=== PATIENT | female | born 1990 | race Caucasian/White ===

== ENCOUNTER → 2025-01-07 | Outpatient (CLI) | payer BC, SELFPAY ==
--- NOTE | 2025-01-07 11:30 | EMB_PTH ---
PATIENT: COLLIN COBURN LOC: [facility] U#:[id number] AGE/SX: 34/F ROOM: RE01/07/[address]: Dr. Lima Gonzalez DO : 1990 BED: DIS: 01/07/2025 SPEC #: [id number] RECD: 01/08/25 10:11 STATUS: PARAG ARYA #: [id number] ELMO: 01/07/25 11:[address]: Lima Gonzalez DEPT: SURGICAL PATHOLOGY RECD BY: Taurus Santos Tissues: A - Endometrium, NOS Procedures: Surgery Specimen Level IV HEADER OPERATION: Endometrial biopsy PRE-OP DIAGNOSIS: Abnormal uterine bleeding TISSUE SUBMITTED: A- Endometrial lining MICROSCOPIC DIAGNOSIS A. Endometrium, biopsy: * Secretory phase. MICROSCOPIC DESCRIPTION Slides are reviewed. GROSS DESCRIPTION A. Received in fixative is one container labeled with the patient's name and designated Endometrial lining. The specimen consists of multiple fragments of pink tissue that measure 2.3 x 1.5 x 0.1 cm in aggregate. The specimen is totally submitted in one cassette. 01/08/2025 CPT:[id number]
[2025-01-10 14:09] LABS: HPV APTIMA, High Risk Negative (Negative)
== END | disposition home or self-care (01) ==
LOC: LABSPEC 16:01
PROVIDERS: Referring Provider Obstetrics & Gynecology; Visit Provider Obstetrics & Gynecology
DX: N93.9 Abnormal uterine and vaginal bleeding, unspecified (principal); Z12.4 Encounter for screening for malignant neoplasm of cervix
CPT/HCPCS: 87624; 88175; 88305; G0145

== ENCOUNTER 2025-09-17 05:30 | Day surgery (SDC) | payer BC, SELFPAY ==
[2025-09-10 10:54] LABS: Hematocrit 42.8 % (37-47); Hemoglobin 14.3 g/dL (12.0-15.0); Mean Corp Hgb Conc 33.4 g/dL (32-36); Mean Corpuscular Volume 89.5 fL (81-99); Mean Platelet Vol. 9.2 fl (6.2-12.0); Platelet Count 358 K/mm3 (150-450); RBC Distribution Width CV 12.3 % (11.6-14.6); RBC Distribution Width SD 40.6 fl (35.1-43.9); Red Blood Count 4.78 M/mm3 (4.2-5.4); White Blood Count 7.1 K/mm3 (4.4-11.0)
[2025-09-10 11:15] LABS: Magnesium 2.1 mg/dL (1.5-2.2)
[2025-09-10 11:46] LABS: Ferritin 25 ng/mL (22-378); Iron 93 ug/dL (50-170); Iron Binding Capacity,Total 336 ug/dL (250-450); Iron Binding Capacity,Unsat 243 ug/dL (228-428)
[2025-09-17] VITALS (11 sets, daily range): BP systolic 104–124; BP diastolic 75–80; PULSE 66–99; RESP 16; TEMP 36.2–36.6; O2SAT 94–100; BMI 27.2
--- OUTSIDE RECORDS SUMMARY | 2025-09-17 05:34 | XMS RPT_ITS | CCD ---
Author Organization [facility] Informat ion Partnership [facility] Care Team Providers Care Mannequin Refinisher Name Role Phone Primitivo Whitaker Primary Care Provider Vanda Montanoine C Unavailable [phone] Unavailable Unavailable Primitivo Whitaker MD Primary Care Provider DustyCharlee rodriguez DO Primary Care Provider Salcha Charlee Primary Care Unavailabl e Salcha Charlee Attending Unavailabl e Salcha Charlee Referring Unavailabl e Dr. Leo Ye Attending Unavailable Dr. Leo Ye Referring Unavailable Salcha, Charlee Primary Care Unavailabl e Dusty Charlee Attending Unavailabl e Salcha Charlee Referring Unavailabl e Salcha, Charlee Primary Care Unavailabl e Salcha, Charlee Attending Unavailabl e Dusty, Charlee Primary Care Unavailabl e Unavailable Unavailable Dusty DO Charlee C Primary Care Provider DUSTY, CHARLEE C Referring Unavaila ble DUSTY CHARLEE C Primary Care Unavaila ble Dusty Vanda WOODYine C Primary Care Provider SELF Referring Unavailable DUSTY, CHARLEE C Primary Care Unavaila ble LIMA VALENCIA Referring Unavailable DUSTY, CHARLEE C Primary Care Unavaila ble Primitivo Whitaker MD Primary Care Provider [phone] Jamee Corley Attending Provider Unavailable Dr. Lima Gonzalez DO Attending Provider Dr. Lima Gonzalez DO Referring Provider PRIMITIVO WHITAKER Primary Care Unavailable AMANDA WAGNER Referring Unavailable AMANDA WAGNER Attending Unavailable PRIMITIVO WHITAKER Primary Care Unavailable AMANDA WAGNER Attending Unavailable Lima Gonzalez Attending Jamee Neal Attending Unavailable Lima Gonzalez Attending Unavailsunny e Lima Gonzalez Referring Unavailsunny e Charlee Montano Primary Care Joaquim e Lima Gonzalez Attending Joaquim e Lima Gonzalez Referring Unavailsunny e Lima Gonzalez Attending Unavailabl e Allergies Allergy Classification Reported Allergen(s) Allergy Type Date of Onset Reaction(s) Facility (5 sources) Amoxicillin / Clavulanate; Translations: [AMOXICILLIN-POT CLAVULANATE] Drug Allergy 10-31-2016 [facility] Medications Current Medications Medication Drug Class(es) Dates Sig (Normalized) Sig (Original) acetaminophen 325 mg oral tablet (4 sources) Start: 08-05-2021 acetaminophen (TYLENOL) tablet 650 mg Start: 08-01-2019 End: 08-02-2019 acetaminophen (TYLENOL) tabl et 650 mg [id number] 200 actuat albuterol 0.09 mg/actuat metered dose inhaler (2 sources) beta2-Adrenergic Agonist Start: 12-17-2024 take 2 puff(s) by inhalation every four hours as needed for wheezing albuterol HFA (VENTOLIN HFA) 90 mcg/actuation inhaler Indications: Acute bronchitis, unspecified organism Inhale 2 Puffs as instructed every 4 hours as needed for wheezing/shortness of breath. Inhale by mouth as instructed. 18 g 12/17/2024 Active azithromycin 250 mg oral tablet (2 sources) Macrolide Antimicrobial Start: 12-17-2024 take 2 tablets by mouth once daily, then take 1 tablet by mouth once daily azithromycin (ZITHROMAX Z-MAMADOU) 250 mg tablet Indications: Acute bronchitis, unspecified organism Two (2) tablets by mouth the first day and then one (1) tablet by mouth daily for 4 days. 6 tablet 12/17/2024 Active benzethonium chloride 2 mg/ml / benzocaine 200 mg/ml topical spray (2 sources) Standardized Chemical Allergen Start: 08-05-2021 benzocaine-benzethoni um (DERMOPLAST) 20-0.2 % spray benzocaine 200 mg/ml / menthol 5 mg/ml topical spray (1 source) Standardized Chemical Allergen Start: 08-02-2019 benzocaine-menthol (DERMOPLAST) 20-0.5 % spray benzonatate 200 mg oral capsule (2 sources) Non-narcotic Antitussive Start: 12-17-2024 End: 12-27-2024 take 1 capsule by mouth every eight hours as needed Benzonatate 200 mg capsule Take 1 capsule by mouth three times a day as needed for up to 10 days. 30 capsule 12/17/2024 12/27/2024 Active calcium chloride 0.0014 meq/ml / potassium chloride 0.004 meq/ml / sodium chloride 0.103 meq/ml / sodium lactate 0.028 meq/ml injectable solution (3 sources) Start: 08-05-2021 lactated ringers infusion Start: 08-01-2019 End: 08-02-2019 lactated ringers bolus cholecalciferol 0.05 mg oral capsule (1 source) Vitamin D Start: 01-07-2025 take 1 capsule by mouth once daily Cholecalciferol (Vitamin D3) 50 mcg (2,000 unit) capsule Active 50 ug PO daily January 07, 2025 12:00am docusate sodium 100 mg oral capsule (2 sources) Start: 08-05-2021 docusate sodiu m (COLACE) capsule 100 mg Start: 08-02-2019 docusate sodiu m (COLACE) capsule 100 mg 21 day ethinyl estradiol 0.380961 mg/hr / etonogestrel 0.005 mg/hr vaginal system (4 sources) Progestin, Estrogen Etonogestrel -Ethinyl Estradiol (NUVARING) 0.12-0.015 mg/24 hr vaginal ring Indications: Acute non-recurrent ethmoidal sinusitis Use 1 Each vaginally as directed. Insert vaginally and leave in place for 3 consecutive weeks, then remove for 1 week. Active Comment on above: Use 1 Each vaginally as directed. Insert vaginally and leave in place for 3 consecutive weeks, then remove for 1 week. fluticasone propionate 0.05 mg/actuat metered dose nasal spray (20 sources) Corticosteroid End: fluticasone (Flonase) 50 mcg/actuation nasal spray Administer into affected nostril(s). 0 10/10/2023 Discontinued (Therapy completed) Flonase 50 MCG/A CT SUSP Quantity: 0 Refills: 0 Ordered: 29-Jul-2020 DO Active fluticasone (CHERY NASE) 50 MCG/ACT nasal spray by Nasal route 0 Suspended hydrOXYzine hydrochloride 25 mg oral tablet (15 sources) Antihistamine Start: 01-07-2025 take 1 tablet by mouth at bedtime as needed Hydroxyzine Hcl 25 mg tablet Active 25 mg PO AT BEDTIME as needed January 07, 2025 12:00am Start: 10-01-2024 take 1 tablet by jennie th every eight hours as needed for anxiety hydrOXYzine HCL (Atarax) 25 mg tablet Indications: Anxiety and depression TAKE ONE TABLET BY MOUTH EVERY 8 HOURS NEEDED FOR ANXIETY 90 tablet 10/30/2024 Active Start: 11-26-2023 take 1 tablet by jennie th every eight hours for anxiety hydrOXYzine HCL (Atarax) 25 mg tablet Indications: Anxiety and depression TAKE ONE (1) TABLET BY MOUTH EVERY 8 HOURS IF NEEDED FOR ANXIETY 90 tablet 1 11/26/2023 Active Start: 10-10-2023 take 1 tablet by jennie th every eight hours for anxiety hydrOXYzine HCL (Atarax) 25 mg tablet Indications: Anxiety and depression TAKE ONE (1) TABLET BY MOUTH EVERY 8 HOURS IF NEEDED FOR ANXIETY 90 tablet 0 10/10/2023 Active Start: 09-21-2023 End: 10-10-2023 take 1 tablet by mouth every eight hours for anxiety hydrOXYzine HCL (Atarax) 25 mg tablet Indications: Anxiety and depression TAKE ONE (1) TABLET BY MOUTH EVERY 8 HOURS IF NEEDED FOR ANXIETY 90 tablet 0 09/21/2023 10/10/2023 Discontinued (Reorder) Start: 09-10-2022 take 1 tablet by jennie th three times daily as needed for anxiety hydrOXYzine HCl - 25 MG Oral Tablet TAKE 1 TABLET 3 TIMES DAILY NEEDED as needed for anxiety. Quantity: 21 Refills: 0 Ordered: 27-Oct-2022 Charlee Montano DO Start : 10-Sep-2022 Active ibuprofen 600 mg oral tablet (5 sources) Nonsteroidal Anti-inflammatory Drug Start: 08-05-2021 ibuprofen (ADVIL;MOTRIN) tablet 600 mg Start: 08-01-2019 End: 04-30-2021 take 1 tablet by mouth every six hours as needed for pain ibuprofen (ADVIL;MOTRIN) 600 MG tablet Take 1 tablet by mouth every 6 hours as needed for Pain 40 tablet 2 08/03/2019 04/30/2021 Discontinued (LIST CLEANUP) Lactated Ringer's Solution (1 source) Start: 08-05-2021 lactated ringe rs bolus lanolin 1000 mg/ml topical c ream (2 sources) Start: 08-05-2021 lansinoh lanol in ointment Start: 08-02-2019 lanolin ointme nt loratadine 10 mg oral tablet (6 sources) loratadine (CLAR ITIN) 10 mg tablet Take 10 mg by mouth. Active Comment on above: Take 10 mg by mouth. magnesium oxide,aspartate,ci tr (TRIPLE MAGNESIUM COMPLEX) 400 mg magnesium cap (4 sources) magnesium oxide, aspartate,citr (TRIPLE MAGNESIUM COMPLEX) 400 mg magnesium cap Take by mouth. Active magnesium oxide, aspartate,citr (TRIPLE MAGNESIUM COMPLEX) 400 mg magnesium cap Take by mouth. 0 Active Comment on above: Take by mouth. magnesium oxide,aspartate,citr (Triple Magnesium Complex) 400 mg magnesium capsule (1 source) End: 10-10-20 23 magnesium oxide,aspartate,citr (Triple Magnesium Complex) 400 mg magnesium capsule Take by mouth. 0 10/10/2023 Discontinued (Therapy completed) metoclopramide 10 mg oral tablet (13 sources) Dopamine-2 Receptor Antagonist Start: 01-15-20 21 End: 08-06-20 21 take 1 tablet by mouth three times daily at mealtime metoclopramide (REGLAN) 10 MG tablet Take 1 tablet by mouth 3 times daily (with meals) 120 tablet 3 01/14/2021 Active Reglan 10 MG Ora l Tablet Quantity: 0 Refills: 0 Ordered: 14-Aug-2021 DO Active morphine injection 2 mg (1 source) Start: 08-05-2021 morphine injec tion 2 mg 2 ml ondansetron 2 mg/ml injection (4 sources) Serotonin-3 Receptor Antagonist Start: 08-05-2021 ondansetron (ZOFRAN) injection 4 mg Start: 08-01-2019 End: 08-02-2019 ondansetron (ZOFRAN) injecti on 4 mg End: 08-03-2019 ondansetron (ZOFRAN ODT) 4 M G disintegrating tablet oxyCODONE hydrochloride 5 mg oral tablet (1 source) Opioid Agonist Start: 08-02-2019 oxyCODONE (DANIEL ICODONE) immediate release tablet 5 mg oxytocin (PITOCIN) 10 unit bolus from the bag (1 source) Start: 08-05-2021 oxytocin (MILEY SEDA) 10 unit bolus from the bag oxytocin (PITOCIN) 30 units in 500 mL infusion (1 source) Start: 08-01-2019 oxytocin (MILEY SEDA) 30 units in 500 mL infusion riboflavin 400 mg oral tablet (3 sources) End: 10-10-2023 riboflavin (Vitamin B-2) 400 mg tablet Riboflavin 400 M G TABS rizatriptan 10 mg oral tablet (20 sources) Serotonin-1b and Serotonin-1d Receptor Agonist Start: 01-07-2025 take 1 tablet by mouth every two hours Rizatriptan 10 mg tablet Active 0 PO .COMPLEX January 07, 2025 12:00am take 1 tab at onset of headache; if no relief may repeat 1 tab after at least 2 hrs; max = 3 tabs/24 hr PO Start: 07-29-2020 End: 10-30-2024 take 1 tablet by mouth every two hours as needed, then take 3 tablets by mouth every twenty-four hours as needed rizatriptan (Maxalt) 10 mg tablet Indications: Migraine without status migrainosus, not intractable, unspecified migraine type TAKE 1 TABLET BY MOUTH AT ONSET OF HEADACHE. MAY REPEAT EVERY 2 HOURS NEEDED. MAXIMUM OF 3 TABLETS IN 24 HOURS 9 tablet 3 10/30/2024 Active Comment on above: TAKE 1 TABLET BY JENNIE TH AT ONSET OF HEADACHE. MAY REPEAT EVERY 2 HOURS NEEDED. MAXIMUM OF 3 TABLETS IN 24 HOURS sertraline 100 mg oral tablet (20 sources) Serotonin Reuptake Inhibitor Start: 08-05-2021 take 100 mg by mouth once daily 100 mg, Oral, DAILY, First dose on Tue08/05/21 at 0900 Start: 07-29-2020 End: 10-30-2025 take 1 tablet by mouth once daily Sertraline (Zoloft) 100 mg tablet Active 100 mg PO daily January 07, 2025 12:00am Comment on above: 1 tab(s) simethicone 80 mg chewable tablet (1 source) Start: 08-05-2021 simethicone (M YLICON) chewable tablet 80 mg 1000 ml sodium chloride 9 mg/ml injection (3 sources) Start: 08-05-2021 0.9 % sodium c hloride infusion Start: 08-05-2021 sodium chlorid e flush 0.9 % injection 5-40 mL Start: 08-02-2019 sodium chlorid e flush 0.9 % injection 10 mL witch chucky 500 mg/ml medicated pad (2 sources) Start: 08-05-2021 witch chucky-gl ycerin (TUCKS) pad Start: 08-02-2019 witch chucky-gl ycerin (TUCKS) pad Completed/Discontinued Medications Medication Drug Class(es) Dates Sig (Normalized) Sig (Original) acetaminophen 325 mg / butalbital 50 mg / caffeine 40 mg oral tablet (4 sources) Barbiturate, Central Nervous System Stimulant, Methylxanthine Start: 01-14-2021 take 1 tablet by mouth every four hours as needed for headache butalbital-aceta minophen-caffein e (FIORICET, ESGIC) 50-325-40 MG per tablet Take 1 tablet by mouth every 4 hours as needed for Headaches 180 tablet 3 01/14/2021 Suspended Start: 02-22-2019 End: 08-03-2019 owgcqwmemf-WMLH-stbfpatd (FI ORICET) 50-300-40 MG CAPS per capsule take 1 capsule by [facility] every four hours Fioricet 50-300-40 MG Oral Capsule TAKE 1 CAPSULE Every 4 hours PRN Quantity: 0 Refills: 0 Ordered: 14-Aug-2021 DO Active amoxicillin 500 mg oral tablet (2 sources) Penicillin-class Antibacterial Start: 03-09-2023 End: 10-08-2023 amoxicillin (Amoxil) 500 mg tablet Indications: upper respiratory infection Take 2 tablets twice a day for 10 days 40 tablet 0 03/09/2023 10/08/2023 Discontinued (Therapy completed) Start: 03-16-2022 End: 03-23-2022 take 1 tablet by mouth once daily Amoxicillin 875 MG Oral Tablet TAKE 1 TABLET EVERY 12 HOURS DAILY. Quantity: 14 Refills: 0 Ordered: 16-Mar-2022 Charlee Montano DO Start : 16-Mar-2022 End : 23-Mar-2022 Active amoxicillin 875 mg / clavulanate 125 mg oral tablet (1 source) Penicillin-class Antibacterial Start: 03-29-2022 take 1 tablet by mouth every twelve hours Amoxicillin-Pot Clavulanate 875-125 MG Oral Tablet TAKE 1 TABLET EVERY 12 HOURS UNTIL GONE. Quantity: 14 Refills: 0 Ordered: 29-Mar-2022 Charlee Montano DO Start : 29-Mar-2022 Active Bacillus coagulans / Inulin (2 sources) Bacillus Coagulans-Inulin (PROBIOTIC FORMULA PO) Tijxnbuxyk-AASU-O affeine (FIORICET PO) (1 source) End: 04-30-2021 Gqljioctqp-CRHY-Dxdg eine (FIORICET PO) cephalexin 500 mg oral capsule (3 sources) Cephalosporin Antibacterial Start: 04-16-2022 take 1 capsule by mouth four times daily Cephalexin 500 MG Oral Capsule TAKE 1 CAPSULE 4 TIMES DAILY Quantity: 40 Refills: 0 Ordered: 16-Apr-2022 Leo Ye MD Start : 16-Apr-2022 Active Magnesium (2 sources) Magnesium 400 MG CAPS Take by mouth daily 0 Suspended Magnesium 400 MG CAPS Take by mouth daily 0 Active 1 ml morphine sulfate 4 mg/ml cartridge (3 sources) Opioid Agonist Start: 08-05-2021 End: 08-05-2021 morphine 4 MG/ML injection Start: 08-01-2019 End: 08-01-2019 morphine 4 MG/ML injection Start: 08-01-2019 End: 08-02-2019 morphine injection 2 mg Plus TABS (3 sources) Plus TA BS TAKE 1 TABLET DAILY. Quantity: 0 Refills: 0 Ordered: 24-Dec-2020 DO Active Vit-Fe Fumarate-FA ( 1+1 PO) (1 source) End: 08-03-2019 Vit-Fe Fumarate-FA ( 1+1 PO) Vit-Fe Fumarate-FA ( PLUS) 27-1 MG TABS (2 sources) Vit-Fe Fumarate-FA ( PLUS) 27-1 MG TABS Take by mouth 0 Suspended Vit-Fe Fumarate-FA ( PLUS) 27-1 MG TABS Take by mouth 0 Active promethazine hydrochloride 12.5 mg rectal suppository (1 source) Phenothiazine End: 08-03-2019 promethazine (PHENERGAN) 12.5 MG suppository 200 ml ropivacaine hydrochloride 2 mg/ml injection (1 source) Amide Local Anesthetic Start: 08-01-2019 End: 08-01-2019 ropivacaine (NAROPIN) 0.2% injection 0.2% ropivacaine 0.2% in sodium chloride 0.9% (OB) epidural syringe (1 source) Start: 08-01-2019 End: 08-01-2019 ropivacaine 0.2% in sodium chloride 0.9% (OB) epidural syringe Problems Active Problems Problem Classification Problem Date Documented Date Episodic/Chronic Acute bronchitis (3 sources) Acute bronchitis; Translations: [Acute bronchitis, unspecified] Onset: 12-17-2024 12-17-2024 Episodic Anxiety disorders (20 sources) Mixed anxiety and depressive disorder; Translations: [Anxiety state, unspecified] Onset: 01-07-2023 10-10-2023 Chronic Deficiency and other anemia (1 source) Anemia; Translations: [Anemia, unspecified] Episodic Disorders of lipid metabolism (20 sources) Hyperlipidemia; Translations: [Other and unspecified hyperlipidemia] Onset: 01-07-2023 10-10-2023 Chronic Fever of unknown origin (3 sources) Fever with chills; Translations: [Fever, unspecified] Episodic Genitourinary symptoms and ill-defined conditions (3 sources) Urine looks dark; Translations: [Other nonspecific findings on examination of urine] Episodic Headache; including migraine (20 sources) Migraine; Translations: [Migraine, unspecified, without mention of intractable migraine without mention of status migrainosus] Onset: 01-07-2023 10-10-2023 Chronic Immunizations and screening for infectious disease (16 sources) Patient encounter status; Translations: [Other specified vaccination] Onset: 09-10-2022 Episodic Malaise and fatigue (2 sources) Fatigue; Translations: [Other fatigue] Onset: 09-03-2025 10-30-2024 Episodic Menstrual disorders (5 sources) Menstrual spotting; Translations: [Other specified noninflammatory disorders of vagina] Chronic Nonmalignant breast conditions (14 sources) Mastodynia; Translations: [Mastodynia] Onset: 02-06-2024 01-20-2024 Episodic Nutritional deficiencies (1 source) Vitamin D deficiency; Translations: [Vitamin D deficiency, unspecified] Onset: 10-31-2024 10-31-2024 Chronic Other connective tissue disease (2 sources) Pain in right foot; Translations: [Pain in right foot] Episodic Other female genital disorders (6 sources) Abnormal uterine bleeding; Translations: [Abnormal uterine and vaginal bleeding, unspecified] 10-30-2024 Chronic Other female genital disorders (1 source) Abnormal uterine and vaginal bleeding, unspecified; Translations: [Abnormal uterine and vaginal bleeding, unspecified] Onset: 09-03-2025 Chronic Other screening for suspected conditions (not mental disorders or infectious disease) (19 sources) Serum creatinine raised; Translations: [Other nonspecific findings on examination of blood] Onset: 09-10-2022 Episodic Comment on above: 09/10/22 NILM HPV ne g; Residual codes; unclassified (20 sources) History finding; Translations: [Other specified conditions influencing health status] Episodic Residual codes; unclassified (5 sources) Knows partner's method of contraception; Translations: [Other specified personal history presenting hazards to health] Episodic Past or Other Problems Problem Classification Problem Date Documented Da te Episodic/Chronic Deficiency and other anemia (8 sources) Iron deficiency anemia; Translations: [Iron deficiency anemia, unspecified] Onset: 10-29-2024 Resolved: 10-29-2024 10-29-2024 Episodic Mood disorders (8 sources) Mood disorders Onset: 10-10-2023 Resolved: 10-30-2024 10-10-2023 Other complications of (8 sources) Mastitis - obstetric; Translations: [Nonpurulent mastitis associated with childbirth, antepartum condition or complication] Resolved: 09-09-2022 Episodic Other hematologic conditions (11 sources) H/O: anemia - iron deficient; Translations: [Personal history of diseases of blood and blood-forming organs] Resolved: 01-04-2022 Episodic Other lower respiratory disease (3 sources) H/O: respiratory disease; Translations: [Personal history of other diseases of respiratory system] Resolved: 04-15-2022 Episodic Other nutritional; endocrine; and metabolic disorders (9 sources) Overweight in adulthood with body mass index of 25 or more but less than 30; Translations: [Overweight] Onset: 10-10-2023 Resolved: 10-30-2024 10-10-2023 Episodic Other and delivery including normal (18 sources) Delivery normal; Translations: [Vaginal delivery] Onset: 08-01-2019 Resolved: 10-08-2023 08-01-2019 Episodic Other upper respiratory infections (6 sources) Acute sinusitis; Translations: [Acute sinusitis, unspecified] Onset: 11-10-2016 11-10-2016 Episodic Polyhydramnios and other problems of amniotic cavity (4 sources) Amniotic fluid leaking; Translations: [Premature rupture of membranes, unspecified as to length of time between rupture and onset of labor, unspecified weeks of gestation] Onset: 08-01-2019 Resolved: 08-06-2021 08-01-2019 Episodic Unclassified (8 sources) Onset: 10-10-2023 10-10-2023 Viral infection (11 sources) Disease caused by 2019-nCoV; Translations: [Other specified viral infection] Resolved: 04-15-2022 Episodic Results Test Name Value Interpretation Reference Range Facility 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 Lima Ansari DO Age/Sex: 35/F Location: [facility] Status: Signed Intake Vital Signs 01/07/25 11:13 09/02/25 14:00 09/02/25 14:03 Height 5 ft 5 ft 5 ft Weight: 120 lb 4 oz 138 lb 5 oz BMI 23.5 27.0 BP 117/81 H 120/79 Intake Visit Reasons: Hyst consult/preop keep 20 min. Rail Grinder Required: No Is patient in pain?: No Allergies No Known Allergies Allergy (Unverified 09/02/25 13:58) Medications ???Medication ???Instructions ???Recorded ???Confirmed ???Type cholecalciferol (vitamin D3) 50 50 mcg PO QDAY 01/07/25 09/02/25 H istory mcg (2,000 unit) capsule hydroxyzine HCl 25 mg tablet 25 mg PO QHS PRN 01/07/25 09/02/25 History rizatriptan 10 mg tablet See Rx Instructions PO .COMPLEX 09/02/25 History venlafaxine 37.5 mg 37.5 mg PO QHS #90 caps 03/13/25 1 11/02/24 Rx capsule,extended release 24 hr (Effexor XR) Is last menstrual period known: Yes Last Menstrual Period: 08/20/25 Post menopausal: No Patient : No : No PFSH Medical History Abnormal uterine and vaginal bleeding, unspecified Migraine Depression with anxiety Surgical History S/P wisdom tooth extraction S/P tonsillectomy S/P sinus surgery Family History Grandfather Colon cancer Prostate cancer Lung cancer Lymphoma Grandmother Breast cancer triple negative Mother Hypertension Social History Smoking Status: Never smoker alcohol intake: current details: occasionally substance use type: does not use caffeine: Yes what type of physical activity do you participate in: walking frequency: 1-2 times per week seatbelt use: always do you feel safe at home: Yes additional social history: - Anthony 2 step children-Adriana Lewis HPI Hyst consult/preop keep 20 min. Details: COLLIN ROY is a 34 year old (vaginal deliveries), who presents for discussion about ablation procedure. Contraception is her 's vasectomy Ultrasound at shows an 8.5 x 4.9 x 5.2 cm. The endometrium is 1 cm. She states that she has heavy periods causing passing of large clots. She also has postcoital bleeding at times and unscheduled bleeding during the month. This has been going of for 2 years. Periods last 7-14 days (heavy for a week) then has spotting and another cycle starts 2 weeks later. She also has vaginal bleeding after intercourse. She also states that she has a history of migraine with aura. 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 Her PCP offered an IUD and she does not want to try this. EMB was benign. Female Reproductive History Last Menstrual Period: 08/20/25 History 2 Elective abortions Hx Para 2 Spontaneous abortions Hx # Term Pregnancies Ectopic pregnancies Hx # Pregnancies Multiple births # of living children Past Pregnancies Del. Date Name GA/Weeks Outcome Route Bth Weight Gen Labor Lgth Anesthesia Del Locatn Provider FOB Unknown [place] Unknown Anitha ROS Const ROS Unobtainable: All systems reviewed are unremarkable except as noted in H Resp Resp: Reports system reviewed and no additional complaints, except as documented; Denies cough GI GI: Reports as per HPI Psych Psych: Reports system reviewed and no additional complaints, except as documented Exam Const General: cooperative, healthy appearing, comfortable and no acute distress Resp Effort Inspection: normal respiratory effort Skin General: no rashes or lesions noted Psych Appearance: grossly normal Speech and Movement: speech and movement normal Coding Level of Care Code Off vis,est,level 4 Diagnoses Abnormal uterine and vaginal bleeding, unspecified N93.9 Fatigue R53.83 Assessment and Plan Assessment and Plan (1) Abnormal uterine and vaginal bleeding, unspecified: Status: Acute (2) Fatigue: Status: Acute Orders: Orders Ferritin Today N93.9 - Abnormal uterine and vaginal bleeding, unspecified, R53.83 - Other fatigue Iron+Iron Binding Capacity Today N93.9 - Abnormal uterine and vaginal bleeding, unspecified, R53.83 - Other fatigue CBC W/Diff, Automated Today N93.9 - Abnormal uterine and vaginal bleeding, unspecified, R53.83 - Other fatigue Type Screen - PAT ONLY Today N93.9 - Abnormal uterine and vaginal bleeding, unspecified, R53.83 - Other fatigue Plan After (more content not included)... Normal [facility] QUANTIFERON TB GOLDon 2024 Mitogen minus NIL >9.98 Invalid Interpretation Code [facility] Comment on above: Order Comment: Quant iFERON-TB Gold Plus is a qualitative indirect chemiluminescence immunoassay test for M tuberculosis infection and is intended for use in conjunction with risk assessment, radiography, and other medical and diagnostic evaluations. The QuantiFERON-TB Gold Plus result is determined by subtracting the Nil value from either TB antigen value. The Mitogen tube serves as a control for the test. The TB1-NIL tube specifically detects CD4+ lymphocyte reactivity; the TB2-NIL tube can detect both CD4+ and CD8+ lymphocyte reactivity. An overall Negative result does not completely rule out TB infection. A false-positive result in the absence of other clinical evidence of TB infection is not uncommon and may be due to infection from some nontuberculosis mycobacteria (M. kansasii, M szulgai, or M. marinum). Clinical research suggests a QuantiFERON-TB Gold Plus interpretation of Positive with TB1 minus Nil and TB2 minus Nil values <1.00 may represent a false-positive in the absence of other clinical evidence, especially in low-risk individuals. An overall indeterminate result is inconclusive and should not be viewed as low or intermediate infection. Indeterminate results can be caused by low Mitogen or high Nil values. Low mitogen results may occur due to a low lymphocyte count, reduced lymphocyte activity, inability of the patient's lymphocytes to generate IFN-gamma, or inappropriate handling of the tubes. High values for the Nil tube may occur due to heterophile antibody effects of nonspecific, circulating IFN-gamma in the patient's blood sample. When clinically indicated, indeterminate tests should be repeated on a new specimen. Testing Performed: [address] [address] Release to patient->Automatic Quantiferon TB Gold Negative Invalid Interpretation Code Negative [facility] Comment on above: Order Comment: Quant iFERON-TB Gold Plus is a qualitative indirect chemiluminescence immunoassay test for M tuberculosis infection and is intended for use in conjunction with risk assessment, radiography, and other medical and diagnostic evaluations. The QuantiFERON-TB Gold Plus result is determined by subtracting the Nil value from either TB antigen value. The Mitogen tube serves as a control for the test. The TB1-NIL tube specifically detects CD4+ lymphocyte reactivity; the TB2-NIL tube can detect both CD4+ and CD8+ lymphocyte reactivity. An overall Negative result does not completely rule out TB infection. A false-positive result in the absence of other clinical evidence of TB infection is not uncommon and may be due to infection from some nontuberculosis mycobacteria (M. kansasii, M szulgai, or M. marinum). Clinical research suggests a QuantiFERON-TB Gold Plus interpretation of Positive with TB1 minus Nil and TB2 minus Nil values <1.00 may represent a false-positive in the absence of other clinical evidence, especially in low-risk individuals. An overall indeterminate result is inconclusive and should not be viewed as low or intermediate infection. Indeterminate results can be caused by low Mitogen or high Nil values. Low mitogen results may occur due to a low lymphocyte count, reduced lymphocyte activity, inability of the patient's lymphocytes to generate IFN-gamma, or inappropriate handling of the tubes. High values for the Nil tube may occur due to heterophile antibody effects of nonspecific, circulating IFN-gamma in the patient's blood sample. When clinically indicated, indeterminate tests should be repeated on a new specimen. Testing Performed: [address] [address] Release to patient->Automatic TB1 minus NIL 0.03 IU/mL Invalid Interpretation Code -0.50-0.34 [facility] Comment on above: Order Comment: Quant iFERON-TB Gold Plus is a qualitative indirect chemiluminescence immunoassay test for M tuberculosis infection and is intended for use in conjunction with risk assessment, radiography, and other medical and diagnostic evaluations. The QuantiFERON-TB Gold Plus result is determined by subtracting the Nil value from either TB antigen value. The Mitogen tube serves as a control for the test. The TB1-NIL tube specifically detects CD4+ lymphocyte reactivity; the TB2-NIL tube can detect both CD4+ and CD8+ lymphocyte reactivity. An overall Negative result does not completely rule out TB infection. A false-positive result in the absence of other clinical evidence of TB infection is not uncommon and may be due to infection from some nontuberculosis mycobacteria (M. kansasii, M szulgai, or M. marinum). Clinical research suggests a QuantiFERON-TB Gold Plus interpretation of Positive with TB1 minus Nil and TB2 minus Nil values <1.00 may represent a false-positive in the absence of other clinical evidence, especially in low-risk individuals. An overall indeterminate result is inconclusive and should not be viewed as low or intermediate infection. Indeterminate results can be caused by low Mitogen or high Nil values. Low mitogen results may occur due to a low lymphocyte count, reduced lymphocyte activity, inability of the patient's lymphocytes to generate IFN-gamma, or inappropriate handling of the tubes. High values for the Nil tube may occur due to heterophile antibody effects of nonspecific, circulating IFN-gamma in the patient's blood sample. When clinically indicated, indeterminate tests should be repeated on a new specimen. Testing Performed: [address] [address] Release to patient->Automatic TB2 minus NIL 0.05 IU/mL Invalid Interpretation Code -0.50-0.34 [facility] Comment on above: Order Comment: Quant iFERON-TB Gold Plus is a qualitative indirect chemiluminescence immunoassay test for M tuberculosis infection and is intended for use in conjunction with risk assessment, radiography, and other medical and diagnostic evaluations. The QuantiFERON-TB Gold Plus result is determined by subtracting the Nil value from either TB antigen value. The Mitogen tube serves as a control for the test. The TB1-NIL tube specifically detects CD4+ lymphocyte reactivity; the TB2-NIL tube can detect both CD4+ and CD8+ lymphocyte reactivity. An overall Negative result does not completely rule out TB infection. A false-positive result in the absence of other clinical evidence of TB infection is not uncommon and may be due to infection from some nontuberculosis mycobacteria (M. kansasii, M szulgai, or M. marinum). Clinical research suggests a QuantiFERON-TB Gold Plus interpretation of Positive with TB1 minus Nil and TB2 minus Nil values <1.00 may represent a false-positive in the absence of other clinical evidence, especially in low-risk individuals. An overall indeterminate result is inconclusive and should not be viewed as low or intermediate infection. Indeterminate results can be caused by low Mitogen or high Nil values. Low mitogen results may occur due to a low lymphocyte count, reduced lymphocyte activity, inability of the patient's lymphocytes to generate IFN-gamma, or inappropriate handling of the tubes. High values for the Nil tube may occur due to heterophile antibody effects of nonspecific, circulating IFN-gamma in the patient's blood sample. When clinically indicated, indeterminate tests should be repeated on a new specimen. Testing Performed: [address] [address] Release to patient->Automatic PAP IG HPV APTIMA 16/18,45on 01-10-2025 ADEQ Comment Normal . [facility] Comment on above: Order Comment: Speci men Comment: [id number] Specimen Comment: Source.............Cervix Specimen Comment: No. of containers..01 ThinPrep Vial Result Comment: Sati sfactory for evaluation. Endocervical and/or squamous metaplastic cells (endocervical component) are present. Performed By: #### L 7400.0280 #### [facility] [address] [place], [place], [id number] COMM . Normal . [facility] Comment on above: Order Comment: Speci men Comment: [id number] Specimen Comment: Source.............Cervix Specimen Comment: No. of containers..01 ThinPrep Vial Performed By: #### L 7400.0280 #### [facility] [address] [place], [address] COMMENT Comment Normal . [facility] Comment on above: Order Comment: Speci men Comment: [id number] Specimen Comment: Source.............Cervix Specimen Comment: No. of containers..01 ThinPrep Vial Result Comment: This liquid based ThinPrep(R) pap test was screened with the use of an image guided system. Performed By: #### L 7400.0280 #### [facility] [address] [place], [place], [id number] DIAG Comment Normal . [facility] Comment on above: Order Comment: Speci men Comment: [id number] Specimen Comment: Source.............Cervix Specimen Comment: No. of containers..01 ThinPrep Vial Result Comment: NEGA TIVE FOR INTRAEPITHELIAL LESION OR MALIGNANCY. Performed By: #### L 7400.0280 #### [facility] [address] [place], [address] HPV APTIMA, HR Negative Normal Negative [facility] Comment on above: Order Comment: Speci men Comment: [id number] Specimen Comment: Source.............Cervix Specimen Comment: No. of containers..01 ThinPrep Vial Result Comment: This nucleic acid amplification test detects fourteen high- risk HPV types (16,18,31,33,35,39,45,51,52,56,58,59,66,68) without differentiation. Performed By: #### L 7400.0280 #### [facility] [address] [place], [place], [id number] HPV Juanita Rfx Comment Normal . [facility] Comment on above: Order Comment: Speci men Comment: [id number] Specimen Comment: Source.............Cervix Specimen Comment: No. of containers..01 ThinPrep Vial Result Comment: Crit erlesli not met, HPV Genotype not performed. Performed at: [address] [id number] Warehouseman: Pamela Marie MD, Phone: [phone] Performed at: = - [address] [id number] Warehouseman: Pamela Marie MD, Phone: [phone] Performed By: #### L 7400.0280 #### [facility] [address] [place], [address] PAPSMR Comment Normal . [facility] Comment on above: Order Comment: Speci men Comment: [id number] Specimen Comment: Source.............Cervix Specimen Comment: No. of containers..01 ThinPrep Vial Result Comment: The Pap smear is a screening test designed to aid in the detection of premalignant and malignant conditions of the uterine cervix. It is not a diagnostic procedure and should not be used as the sole means of detecting cervical cancer. Both false-positive and false-negative reports do occur. Performed By: #### L 7400.0280 #### [facility] [address] [place], [place], [id number] PERFORM Comment Normal . [facility] Comment on above: Order Comment: Speci men Comment: [id number] Specimen Comment: Source.............Cervix Specimen Comment: No. of containers..01 ThinPrep Vial Result Comment: Niecy Salinas, Territory Sales Representative (ASCP) Performed By: #### L 7400.0280 #### [facility] [address] [place], [address] Surgical pathology reportOrd ered By: Keara Marley on 01-10-2025 Surgical pathology study [facility] Adjunct Faculty Cyto stain Nom (C vx/Vag) [ID]Ordered By: Lima Crystal on 01-07-2025 Pap Smear Performed By Comment . [facility] Comment on above: Niecy Salinas, Cytote chnologist (ASCP) Cytology report Cyto stain D oc (Cvx/Vag)Ordered By: Lima Crystal on 01-07-2025 Thin Prep Pap Smear Comment . [facility] Comment on above: The Pap smear is a s creening test designed to aid in thedetection of premalignant and malignant conditions of theuterine cervix. It is not a diagnostic procedure andshould not be used as the sole means of detecting cervicalcancer. Both false-positive and false-negative reports dooccur. Cytology report Cyto stain.t hin prep Doc (Cvx/Vag)Ordered By: Lima Crystal on 01-07-2025 HPV Genotype Special Info Comment . [facility] Comment on above: Criteria not met, HP V Genotype not performed.Performed at: - [facility] [id number] Director: Pamela Marie MD, Phone: [phone] at: = - [facility] [id number] Director: Pamela Marie MD, Phone: [phone] HPV 16+18+31+33+35+39+45+51+ 52+56+58+59+66+68 DNA Probe+sig amp Ql (Cvx)Ordered By: Lima Crystal on 01-07-2025 Human Papillomavirus High Risk Negative Negative [facility] Comment on above: This nucleic acid am plification test detects fourteen high- risk HPV types (16,18,31,33,35,39,45,51,52,56,58,59,66,68)without differentiation. Image-guided ThinPrep PapOrd ered By: Lima Crystal on 01-07-2025 Pap Smear Note Comment . [facility] Comment on above: This liquid based Th inPrep(R) pap test was screened withthe use of an image guided system. Image-guided liquid-based Pa pOrdered By: Lima Crystal on 01-07-2025 Pap Smear Diagnosis Comment . [facility] Comment on above: NEGATIVE FOR INTRAEP ITHELIAL LESION OR MALIGNANCY. 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 Lima Gonzalez, DO) Abnormal uterine and vaginal bleeding, unspecified Migraine Depression with anxiety Surgical History (Updated 01/07/25 @ 11:17 by Sejal Marshall) S/P wisdom tooth extraction S/P tonsillectomy S/P sinus surgery Family History (Updated 01/07/25 @ 11:18 by Sejal Marshall) Grandfather Colon cancer Prostate cancer Lung cancer Lymphoma Grandmother Breast cancer triple negative Mother Hypertension Social History (Updated 01/07/25 @ 11:19 by Sejal Marshall) Smoking Status: Never smoker alcohol intake: current details: occasionally substance use type: does not use caffeine: Yes what type of physical activity do you participate in: walking frequency: 1-2 times per week seatbelt use: always do you feel safe at home: Yes additional social history: - Anthony 2 step children-Adriana Lewis HPI DISCUSS POSSIBLE ABLATION Details: COLLIN ROY is a 34 year old (vaginal deliveries), who presents for discussion about ablation procedure. Contraception is her 's vasectomy Ultrasound at shows an 8.5 x 4.9 x 5.2 cm. The endometrium is 1 cm. She states that she has heavy periods causing passing of large clots. She also has postcoital bleeding at times and unscheduled bleeding during the month. This has been going of for 2 years. Periods last 7-14 days (heavy for a week) then has spotting and another cycle starts 2 weeks later. She also has vaginal bleeding after intercourse. She also states that she has a history of migraine with aura. 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 Her PCP offered an IUD and she does not want to try this. She is willing to do an EMB today. History 2 Elective abortions Hx Para 2 Spontaneous abortions Hx # Term Pregnancies Ectopic pregnancies Hx # Pregnancies Multiple births # of living children Past Pregnancies Del. Date Name GA/Weeks Outcome Route Bth Weight Infant Gen Labor Lgth Anesthesia Del Locatn Provider FOB Unknown Pilo Unknown Anitha ROS Const ROS Unobtainable: All systems reviewed are unremarkable except as noted in H Resp Resp: Reports system reviewed and no additional complaints, except as documented; Denies cough GI GI: Reports as per HPI Psych Psych: Reports system reviewed and no additional complaints, except as documented Exam Const General: cooperative, healthy appearing, comfortable and no acute distress Resp Effort Inspection: normal respiratory effort General: bimanual renal exam normal bilaterally External Female Exam: normal appearance of the urethra Urethra: normal appearance of the urethra Speculum Exam - Vagina: normal appearance of the vagina Speculum Exam - Cervix: normal appearance of the cervix Bimanual Exam- Adnexa, other: normal adnexae and normal Pelvic Support: normal Skin General: no rashes or lesions noted Psych Appearance: grossly normal Speech and Movement: speech and movement normal Office Procedures Endometrial Biopsy Endometrial Biopsy Test: Yes declined Consent Signed: Yes Time out checklist: patient tenaculum used: Yes dilator used: No Details: Cervix prepped with betadine and pipelle inserted into uterus without complication. Specimen obtained and sent to lab for analysis. All instruments removed from vagina without complications. Excellent hemostasis noted. Coding Level of Care Code Off vis,new,level 4 Diagnoses Abnormal uterine and vaginal bleeding, unspecified N93.9 CPT Codes Endometrial Biopsy (77789) Assessment and Plan Assessment and Plan (1) Abnormal uterine and vaginal bl (more content not included)... Normal [facility] Service comment (Unsp spec) [Interp]Ordered By: Lima Crystal on 01-07-2025 Pap Smear Comment (3) . . [facility] Surgery Specimen Level Nimesh 01-07-2025 Surgery Specimen Level IV -------- Patient Age/Sex Location Account Attending Physician -------- COLLIN ROY 34/F [facility] [id number] Dr. Lima Gonzalez, D -------- Specimen: [id number] Received: 01/08/25 Status: PARAG Barboza Num: [id number] Spec Type: ENDOM BX/C Subm Dr: Dr. Lima Gonzalez, [facility] OPERATION: Endometrial biopsy PRE-OP DIAGNOSIS: Abnormal uterine bleeding TISSUE SUBMITTED: A- Endometrial lining -------- MICROSCOPIC DIAGNOSIS A. Endometrium, biopsy: * Secretory phase. MICROSCOPIC DESCRIPTION Slides are reviewed. GROSS DESCRIPTION A. Received in fixative is one container labeled with the patient's name and designated Endometrial lining. The specimen consists of multiple fragments of pink tissue that measure 2.3 x 1.5 x 0.1 cm in aggregate. The specimen is totally submitted in one cassette. 01/08/2025 CPT:95297 -------- Patient Age/Sex Location Account Attending Physician -------- COLLIN ROY 34/ [facility] [id number] Ruth Ann Callejas -------- Signed (signature on file) Dr. Keara Marley MD 01/10/25 1714 -------- Normal [facility] Comment on above: Performed By: #### P [place] #### [facility] [address] [place], [place], [address] CNOVon 12-17-2024 [facility] Office Visit (WALKMN ) COLLIN ROY ([id number]) 1990 F Date Time Provider Department 12/17/24 7:20 AM LIMA VALENCIA During your visit today, we recorded the following information about you: Temperature Pulse Blood pressure Last Period 98 degrees 82/minute 127/84 12/15/24 Lima Valencia PA-C 12/17/2024 1:05 PM [facility] Department of General Internal Medicine [facility] Outpatient Visit Date: December 17, 2024 CC: URI (Cough and congestion x2 weeks. 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 SOB and chest muscle pain x2-3 days.) Cough is worsening over the past 2 weeks. Taking dayquil and nyquil every 4 hours. Coughing to the point of gagging. Not bringing anything up with the cough. Getting more SOB and having muscular chest pain from coughing so much. SOB/dyspnea/wheezing: + SOB, sometimes wheezing Chest discomfort/pain: + chest discomfort from coughing. Fever/chills: denies Sinus sx: denies facial pressure, denies headache, denies ear pain, + rhinorrhea, denies dental pain, + stuffiness/congestion , + post nasal drainage, denies sore throat, denies sneezing Loss of taste or smell: denies Negative COVID x 2 in the past 2 weeks Myalgias: denies Increased fatigue: + Nausea, Vomiting, Diarrhea: denies Medications tried: dayquil/nyquil Hx of pneumonia: as a child Hx of Asthma/COPD: denies Current or former smoker:denies Recent sick contacts: + family members all sick also Contact with any persons confirmed or suspected of having COVID: denies Personal hx of COVID: a year ago : denies : denies HX: PAST MEDICAL HISTORY Diagnosis Date Anxiety Depression PAST SURGICAL HISTORY Procedure Laterality Date SEPTOPLASTY 2006 TONSILLECTOMY HX 2005 Current Outpatient Medications on File Prior to Visit Medication Sig sertraline (ZOLOFT) 100 mg tablet 1 tab(s) rizatriptan (MAXALT) 10 mg tablet TAKE 1 TABLET BY MOUTH AT ONSET OF HEADACHE. MAY REPEAT EVERY 2 HOURS NEEDED. MAXIMUM OF 3 TABLETS IN 24 HOURS magnesium oxide,aspartate,citr (TRIPLE MAGNESIUM COMPLEX) 400 mg magnesium cap Take by mouth. loratadine (CLARITIN) 10 mg tablet Take 10 mg by mouth. Etonogestrel-Ethinyl Estradiol (NUVARING) 0.12-0.015 mg/24 hr vaginal ring Use 1 Each vaginally as directed. Insert vaginally and leave in place for 3 consecutive weeks, then remove for 1 week. No current facility-administered medications on file prior to visit. PHYSICAL EXAM: BP 127/84 Pulse 82 Temp 36.7 ?C (98 ?F) (Oral) LMP 12/15/2024 (Exact Date) SpO2 98% General appearance: alert, cooperative, pleasant, in no acute distress, nontoxic Head: Normocephalic, atraumatic Eyes: conjunctiva/corneas normal, EOMI Ears: R TM - clear with good landmarks, nl light reflex, L TM - clear with good landmarks, nl light reflex Nose: clear rhinorrhea, mucosa erythematous and swollen Oropharynx: moist without lesions, mild erythema, no exudate, teeth in good repair Neck: supple and no adenopathy Heart: regular rate and rhythm, without murmur Lungs: clear to auscultation, without rales or wheeze, good air exchange Skin: warm, dry Assessment/Plan 1. Acute bronchitis, unspecified organism - ICD9: 466.0, ICD10: J20.9 - NONINVASV OXYGEN SATUR;SINGLE - AZITHROMYCIN 250 MG TABLET - ALBUTEROL SULFATE HFA 90 MCG/ACTUATION AEROSOL INHALER - XR CHEST 2V FRONTAL/LAT - Albuterol HFA 2 puffs every 4-6hrs prn cough, SOB or wheezing - Pain relievers (tylenol) for relief of headache, body aches, malaise, muscle and joint pain, ear ache - Tessalon Perles 200mg TID prn cough - Zithromax Zpak - CXR --- if pneumonia will add Augmentin. Patient states Augmentin on allergy list due to GI upset but has had it since and tolerated well. - Rest, increased fluids, frequent hand washing - RTC if symptoms persist, worsen or proceed to ER for symptoms of increased SOB, chest pain, resp distress, high fever, pain with breathing, etc. Lima Valencia PA-C Referring Provider: SELF [200] Allergies As of Date: 12/17/2024 Noted Allergy Reaction AUGMENTIN (AMOXICILLIN-POT CLAVUL*10/31/2016 11 - Vomiting Date Reviewed: 12/17/2024 Reviewed by: Lima Valencia PA-C - Fully Assessed Reason for Visit: URI [115] Cmt: Cough and congestion x2 weeks. SOB and chest muscle pain x2-3 days. Primary Visit Diagnosis:Acute bronchitis, unspecified organism [J20.9] Order(s):NONINVASV OXYGEN SATUR;SINGLE [17705FIB] Order #: [id number] azithromycin (ZITHROMAX Z-MAMADOU) 250 mg tabletTwo (2) tablets by mouth the first day and then one (1) tablet by mouth daily for 4 days.Disp: 6 tabletRfl: 0 albuterol HFA (VENTOLIN HFA) 90 mcg/actuati (more content not included)... Normal [facility] XR CHEST 2V FRONTAL/LATon XR CHEST 2V FRONTAL/LAT * * *Final Report* * * DATE OF EXAM: Dec 17 2024 7:56AM ASHLEY 5291 - XR CHEST 2V FRONTAL/LAT / PROCEDURE REASON: Acute bronchitis, unspecified organism * * * * Physician Interpretation * * * * EXAMINATION: CHEST RADIOGRAPH (2 VIEW FRONTAL and LATERAL) CLINICAL HISTORY: Acute bronchitis, unspecified organism MQ: XC2_6 EXAM DATE/TIME: 12/17/2024 7:56 AM COMPARISON: No relevant prior studies available. RESULT: Lines, tubes, and devices: None. Lungs and pleura: No consolidation. No lung mass. No pleural effusion. No pneumothorax. Cardiomediastinal silhouette: Normal cardiomediastinal silhouette. Bones and soft tissues: Unremarkable. IMPRESSION: No acute radiographic abnormality. [employer]amel C[employer]: [employer] Transcribe Date/Time: Dec 17 2024 9:13A Dictated by : ISHMAEL VILLATORO MD This examination was interpreted and the report reviewed and electronically signed by: ISHMAEL VILLATORO MD on Dec 17 2024 9:14AM EST [id number] Normal [facility] XR Chest PA and Lateralon IMPRESSION: No acute radiographic abnormality. [employer]amel [employer]andy [employer]: [employer] Transcribe Date/Time: Dec 17 2024 9:13A Dictated by : ISHMAEL VILLATORO MD This examination was interpreted and the report reviewed and electronically signed by: ISHMAEL VILLATORO MD on Dec 17 2024 9:14AM EST DIVISION OF RADIOLOGY * * *Final Report* * * DATE OF EXAM: Dec 17 2024 7:56AM ASHLEY 5291 - XR CHEST 2V FRONTAL/LAT / PROCEDURE REASON: Acute bronchitis, unspecified organism * * * * Physician Interpretation * * * * EXAMINATION: CHEST RADIOGRAPH (2 VIEW FRONTAL & LATERAL) CLINICAL HISTORY: Acute bronchitis, unspecified organism MQ: XC2_6 EXAM DATE/TIME: 12/17/2024 7:56 AM COMPARISON: No relevant prior studies available. RESULT: Lines, tubes, and devices: None. Lungs and pleura: No consolidation. No lung mass. No pleural effusion. No pneumothorax. Cardiomediastinal silhouette: Normal cardiomediastinal silhouette. Bones and soft tissues: Unremarkable. DIVISION OF RADIOLOGY Provider, [facility] - 12/17/2024 * * *Final Report* * * DATE OF EXAM: Dec 17 2024 7:56AM ASHLEY 5291 - XR CHEST 2V FRONTAL/LAT / PROCEDURE REASON: Acute bronchitis, unspecified organism * * * * Physician Interpretation * * * * EXAMINATION: CHEST RADIOGRAPH (2 VIEW FRONTAL & LATERAL) CLINICAL HISTORY: Acute bronchitis, unspecified organism MQ: XC2_6 EXAM DATE/TIME: 12/17/2024 7:56 AM COMPARISON: No relevant prior studies available. RESULT: Lines, tubes, and devices: None. Lungs and pleura: No consolidation. No lung mass. No pleural effusion. No pneumothorax. Cardiomediastinal silhouette: Normal cardiomediastinal silhouette. Bones and soft tissues: Unremarkable. IMPRESSION IMPRESSION: No acute radiographic abnormality. [employer]amel C[employer] Maker: [employer] Transcribe Date/Time: Dec 17 2024 9:13A Dictated by : ISHMAEL VILLATORO MD This examination was interpreted and the report reviewed and electronically signed by: ISHMAEL VILLATORO MD on Dec 17 2024 9:14AM EST [facility] Radiology Study observation (narrative) [facility] XR Chest PA and LateralOrder ed By: Cc Provider on 12-17-2024 [facility] BI MAMMO LEFT DIAGNOSTIC ROSEMARIE OSYNTHESISon 02-06-2024 BI MAMMO LEFT DIAGNOSTIC TOMOSYNTHESIS Interpreted By: Hallie Jean Baptiste, STUDY: BI MAMMO LEFT DIAGNOSTIC TOMOSYNTHESIS; BI US BREAST LIMITED LEFT; 02/06/2024 9:26 am; 02/06/2024 9:49 am ACCESSION NUMBER(S): [id number]; [id number] ORDERING CLINICIAN: CHARLEE MONTANO INDICATION: Palpable lump and pain in the left breast. COMPARISON: Baseline. FINDINGS: 2D and tomosynthesis images were reviewed at 1 mm slice thickness. Density: The breast tissue is heterogeneously dense, which may obscure small masses. A metallic radiopaque marker was placed by the patient at the site of the focal lump in the upper outer left breast; no mammographic abnormalities are seen deep to the radiopaque marker. Dense fibroglandular tissue is visualized. No suspicious masses or calcifications are identified. Ultrasound: Targeted ultrasound of the upper outer left breast was performed at the area of palpable lump/pain. Normal breast parenchyma is seen. There is no focal mass or acoustic shadowing. IMPRESSION: No mammographic evidence of malignancy. No mammographic or targeted sonographic findings are seen at the area of palpable left breast lump/pain. Clinical follow-up is recommended. Annual screening is recommended at age 40 or earlier based on risk assessment. BI-RADS CATEGORY: BI-RADS Category: 1 Negative. Recommendation: Clinical follow-up. Recommended Date: Age 40 or based on Risk-Assessment. Laterality: Left. For any future breast imaging appointments, please call [phone] ([phone]). MACRO: None Signed by: Hallie Jean Baptiste 02/06/2024 11:08 AM Dictation workstation: [id number] [facility] BI US BREAST LIMITED LEFTon 02-06-2024 BI US BREAST LIMITED LEFT Interpreted By: Hallie Jean Baptiste, STUDY: BI MAMMO LEFT DIAGNOSTIC TOMOSYNTHESIS; BI US BREAST LIMITED LEFT; 02/06/2024 9:26 am; 02/06/2024 9:49 am ACCESSION NUMBER(S): [id number]; [id number] ORDERING CLINICIAN: CHARLEE MONTANO INDICATION: Palpable lump and pain in the left breast. COMPARISON: Baseline. FINDINGS: 2D and tomosynthesis images were reviewed at 1 mm slice thickness. Density: The breast tissue is heterogeneously dense, which may obscure small masses. A metallic radiopaque marker was placed by the patient at the site of the focal lump in the upper outer left breast; no mammographic abnormalities are seen deep to the radiopaque marker. Dense fibroglandular tissue is visualized. No suspicious masses or calcifications are identified. Ultrasound: Targeted ultrasound of the upper outer left breast was performed at the area of palpable lump/pain. Normal breast parenchyma is seen. There is no focal mass or acoustic shadowing. IMPRESSION: No mammographic evidence of malignancy. No mammographic or targeted sonographic findings are seen at the area of palpable left breast lump/pain. Clinical follow-up is recommended. Annual screening is recommended at age 40 or earlier based on risk assessment. BI-RADS CATEGORY: BI-RADS Category: 1 Negative. Recommendation: Clinical follow-up. Recommended Date: Age 40 or based on Risk-Assessment. Laterality: Left. For any future breast imaging appointments, please call [phone] ([phone]). MACRO: None Signed by: Hallie Jean Baptiste 02/06/2024 11:08 AM Dictation workstation: [id number] [facility] DBT Breast - left diagnostic on 02-06-2024 Radiology Study observation (narrative) [facility] Work Phone: No Panel Informationon 02-05 No mammographic evidence of malignancy. No mammographic or targeted sonographic findings are seen at the area of palpable left breast lump/pain. Clinical follow-up is recommended. Annual screening is recommended at age 40 or earlier based on risk assessment. BI-RADS CATEGORY: BI-RADS Category: 1 Negative. Recommendation: Clinical follow-up. Recommended Date: Age 40 or based on Risk-Assessment. Laterality: Left. For any future breast imaging appointments, please call [phone] ([phone]). MACRO: None Signed by: Hallie Jean Baptiste 02/06/2024 11:08 AM Dictation workstation: [id number] Interpreted By: Hallie Jean Baptiste, STUDY: BI MAMMO LEFT DIAGNOSTIC TOMOSYNTHESIS; BI US BREAST LIMITED LEFT; 02/06/2024 9:26 am; 02/06/2024 9:49 am ACCESSION NUMBER(S): [id number]; [id number] ORDERING CLINICIAN: CHARLEE MONTANO INDICATION: Palpable lump and pain in the left breast. COMPARISON: Baseline. FINDINGS: 2D and tomosynthesis images were reviewed at 1 mm slice thickness. Density: The breast tissue is heterogeneously dense, which may obscure small masses. A metallic radiopaque marker was placed by the patient at the site of the focal lump in the upper outer left breast; no mammographic abnormalities are seen deep to the radiopaque marker. Dense fibroglandular tissue is visualized. No suspicious masses or calcifications are identified. Ultrasound: Targeted ultrasound of the upper outer left breast was performed at the area of palpable lump/pain. Normal breast parenchyma is seen. There is no focal mass or acoustic shadowing. MMODAL Hallie Jean Baptiste MD - 02/06/2024 Interpreted By: Hallie Jean Baptiste, STUDY: BI MAMMO LEFT DIAGNOSTIC TOMOSYNTHESIS; BI US BREAST LIMITED LEFT; 02/06/2024 9:26 am; 02/06/2024 9:49 am ACCESSION NUMBER(S): [id number]; [id number] ORDERING CLINICIAN: CHARLEE MONTANO INDICATION: Palpable lump and pain in the left breast. COMPARISON: Baseline. FINDINGS: 2D and tomosynthesis images were reviewed at 1 mm slice thickness. Density: The breast tissue is heterogeneously dense, which may obscure small masses. A metallic radiopaque marker was placed by the patient at the site of the focal lump in the upper outer left breast; no mammographic abnormalities are seen deep to the radiopaque marker. Dense fibroglandular tissue is visualized. No suspicious masses or calcifications are identified. Ultrasound: Targeted ultrasound of the upper outer left breast was performed at the area of palpable lump/pain. Normal breast parenchyma is seen. There is no focal mass or acoustic shadowing. IMPRESSION: No mammographic evidence of malignancy. No mammographic or targeted sonographic findings are seen at the area of palpable left breast lump/pain. Clinical follow-up is recommended. Annual screening is recommended at age 40 or earlier based on risk assessment. BI-RADS CATEGORY: BI-RADS Category: 1 Negative. Recommendation: Clinical follow-up. Recommended Date: Age 40 or based on Risk-Assessment. Laterality: Left. For any future breast imaging appointments, please call [phone] ([phone]). MACRO: None Signed by: Hallie Jean Baptiste 02/06/2024 11:08 AM Dictation workstation: [id number] [facility] Work Phone: No Panel InformationOrdered By: Hallie Jean Baptiste on 02-06-2024 [facility] Work Phone: US Breast - left limitedon 0 02-06-2024 Radiology Study observation (narrative) [facility] Work Phone: Blood Pressure Cuff Sizeon 1 11-10-2021 Adult depression screening assessment Yes [facility] Work Phone: Adult depression screening assessment No [facility] Work Phone: Last menstrual period start date nursing [facility] Work Phone: Tobacco use status CPHS b) No [facility] Work Phone: Blood Pressure Cuff Size Adult [facility] Work Phone: Blood Pressure Cuff Size 0-Not at all [facility] Work Phone: Blood Pressure Cuff Size 1-Several days [facility] Work Phone: Blood Pressure Cuff Size 2-More than half the days [facility] Work Phone: Blood Pressure Cuff Size 3-Nearly every day [facility] Work Phone: Blood Pressure Cuff Size Somewhat Difficult [facility] Work Phone: CBC AND DIFFERENTIALon 09-10 % AUTOMATED IMMATURE GRAN 0.3 % Normal 0.0 - 0.9 [facility] Comment on above: Result Comment: Radha ture Granulocyte Count (IG) includes promyelocytes, myelocytes and metamyelocytes but does not include bands. Percent differential counts (%) should be interpreted in the context of the absolute cell counts (cells/L). Performed By: #### C BCDF #### [facility] [address] [place] [address] Basophils (Bld) [#/Vol] 0.06 10*3/uL Normal 0.00 - 0.10 [facility] Comment on above: Performed By: #### C BCDF #### [facility] [address] [place] [address] Basophils/100 WBC (Bld) 0.9 % Normal 0.0 - 2.0 [facility] Comment on above: Performed By: #### C BCDF #### [facility] [address] [place] [address] Eosinophils (Bld) [#/Vol] 0.10 10*3/uL Normal 0.00 - 0.70 [facility] Comment on above: Performed By: #### C BCDF #### [facility] [address] [place] [address] Eosinophils/100 WBC (Bld) 1.5 % Normal 0.0 - 6.0 [facility] Comment on above: Performed By: #### C BCDF #### [facility] [address] [place] [address] Erythrocyte distribution width (RBC) [Ratio] 13.2 % Normal 11.5 - 14.5 [facility] Comment on above: Performed By: #### C BCDF #### [facility] [address] [place] [address] Hematocrit (Bld) [Volume fraction] 42.0 % Normal 36.0 - 46.0 [facility] Comment on above: Performed By: #### C BCDF #### [facility] [address] [place] [address] Hemoglobin (Bld) [Mass/Vol] 14.0 g/dL Normal 12.0 - 16.0 [facility] Comment on above: Performed By: #### C BCDF #### [facility] [address] [place] [address] Lymphocytes (Bld) [#/Vol] 1.68 10*3/uL Normal 1.20 - 4.80 [facility] Comment on above: Performed By: #### C BCDF #### [facility] [address] [place] [address] Lymphocytes/100 WBC (Bld) 25.3 % Normal 13.0 - 44.0 [facility] Comment on above: Performed By: #### C BCDF #### [facility] [address] [place] [address] MCHC (RBC) [Mass/Vol] 33.3 g/dL Normal 32.0 - 36.0 [facility] Comment on above: Performed By: #### C BCDF #### [facility] [address] [place] [address] MCV (RBC) [Entitic vol] 92 fL Normal 80 - 100 [facility] Comment on above: Performed By: #### C BCDF #### [facility] [address] [place] [address] Monocytes (Bld) [#/Vol] 0.45 10*3/uL Normal 0.10 - 1.00 [facility] Comment on above: Performed By: #### C BCDF #### [facility] [address] [place] [address] Monocytes/100 WBC (Bld) 6.8 % Normal 2.0 - 10.0 [facility] Comment on above: Performed By: #### C BCDF #### [facility] [address] [place] [address] Neutrophils (Bld) [#/Vol] 4.33 10*3/uL Normal 1.20 - 7.70 [facility] Comment on above: Performed By: #### C BCDF #### [facility] [address] [place] [address] Neutrophils/100 WBC (Bld) 65.2 % Normal 40.0 - 80.0 [facility] Comment on above: Performed By: #### C BCDF #### [facility] [address] [place] [address] NUCLEATED RBC 0.0 /100 WBC Normal 0.0-0.0 [facility] Comment on above: Performed By: #### C BCDF #### [facility] [address] [place] [address] Platelets (Bld) [#/Vol] 325 10*3/uL Normal 150 - 450 [facility] Comment on above: Performed By: #### C BCDF #### [facility] [address] [place] [address] RBC 4.56 x10E12/L Normal 4.00 - 5.20 [facility] Comment on above: Performed By: #### C BCDF #### [facility] [address] [place] [address] WBC (Bld) [#/Vol] 6.6 10*3/uL Normal 4.4 - 11.3 [facility] Comment on above: Performed By: #### C BCDF #### [facility] [address] [place] [address] COMPREHENSIVE PANELon 2021 Albumin [Mass/Vol] 4.4 g/dL Normal 3.4 - 5.0 [facility] Comment on above: Performed By: #### C BCDF #### [facility] [address] [place] [address] ALP [Catalytic activity/Vol] 108 U/L Normal 33 - 110 [facility] Comment on above: Performed By: #### C BCDF #### [facility] [address] [place] [address] ALT [Catalytic activity/Vol] 16 U/L Normal 7 - 45 [facility] Comment on above: Result Comment: Candy ents treated with Sulfasalazine may generate falsely decreased results for ALT. Performed By: #### C BCDF #### [facility] [address] [place] [address] Anion gap [Moles/Vol] 13 mmol/L Normal 10 - 20 [facility] Comment on above: Performed By: #### C BCDF #### [facility] [address] [place] [address] AST [Catalytic activity/Vol] 17 U/L Normal 9 - 39 [facility] Comment on above: Performed By: #### C BCDF #### [facility] [address] [place] [address] Bilirubin [Mass/Vol] 0.5 mg/dL Normal 0.0 - 1.2 [facility] Comment on above: Performed By: #### C BCDF #### [facility] [address] [place] [address] Calcium [Mass/Vol] 9.8 mg/dL Normal 8.6 - 10.6 [facility] Comment on above: Performed By: #### C BCDF #### [place] [address] [place] [address] Chloride [Moles/Vol] 106 mmol/L Normal 98 - 107 [facility] Comment on above: Performed By: #### C BCDF #### [place] [address] [place] [address] Creatinine [Mass/Vol] 0.87 mg/dL Normal 0.50 - 1.05 [facility] Comment on above: Performed By: #### C BCDF #### [facility] [address] [place] [address] GFR/1.73 sq M.predicted among non-blacks MDRD (S/P/Bld) [Vol rate/Area] 89 mL/min/{1.73_m2} Normal >90 [facility] Comment on above: Result Comment: CALC ULATIONS OF ESTIMATED GFR ARE PERFORMED USING THE 2020 CKD-EPI STUDY REFIT EQUATION WITHOUT THE RACE VARIABLE FOR THE IDMS-TRACEABLE CREATININE METHODS. https://jasn.asnjournals.org/content/early//ASN.28488 13327 Performed By: #### C BCDF #### [facility] [address] [place] [address] Glucose [Mass/Vol] 99 mg/dL Normal 74 - 99 [facility] Comment on above: Performed By: #### C BCDF #### [facility] [address] [place] [address] HCO3 (Bld) [Moles/Vol] 27 mmol/L Normal 21 - 32 [facility] Comment on above: Performed By: #### C BCDF #### [facility] [address] [place] [address] Potassium [Moles/Vol] 4.3 mmol/L Normal 3.5 - 5.3 [facility] Comment on above: Performed By: #### C BCDF #### [facility] [address] [place] [address] Protein [Mass/Vol] 7.0 g/dL Normal 6.4 - 8.2 [facility] Comment on above: Performed By: #### C BCDF #### [facility] [address] [place] [address] Sodium [Moles/Vol] 142 mmol/L Normal 136 - 145 [facility] Comment on above: Performed By: #### C BCDF #### [facility] [address] [place] [address] Urea nitrogen [Mass/Vol] 17 mg/dL Normal 6 - 23 [facility] Comment on above: Performed By: #### C BCDF #### [facility] [address] [place] [address] Complete Blood Count + Diffroberto beltre 09-10-2022 Basophils/100 WBC (Bld) 0.9 % 0.0 - 2.0 [facility] Work Phone: Erythrocyte distribution width (RBC) [Ratio] 13.2 % See Below [facility] Work Phone: Comment on above: Reference Range: 11. 5 - 14.5 Hematocrit (Bld) [Volume fraction] 42.0 % See Below [facility] Work Phone: Comment on above: Reference Range: 36. 0 - 46.0 Hemoglobin (Bld) [Mass/Vol] 14.0 g/dL See Below [facility] Work Phone: Comment on above: Reference Range: 12. 0 - 16.0 Lymphocytes/100 WBC (Bld) 25.3 % See Below [facility] Work Phone: Comment on above: Reference Range: 13. 0 - 44.0 MCHC (RBC) [Mass/Vol] 33.3 g/dL See Below [facility] Work Phone: Comment on above: Reference Range: 32. 0 - 36.0 MCV (RBC) [Entitic vol] 92 fL 80 - 100 [facility] Work Phone: Monocytes/100 WBC (Bld) 6.8 % 2.0 - 10.0 [facility] Work Phone: Neutrophils/100 WBC (Bld) 65.2 % See Below [facility] Work Phone: Comment on above: Reference Range: 40. 0 - 80.0 Platelets (Bld) [#/Vol] 325 10*3/uL 150 - 450 [facility] Work Phone: RBC (Bld) [#/Vol] 4.56 {x10E12/L} See Below [facility] Work Phone: Comment on above: Reference Range: 4.0 0 - 5.20 WBC (Bld) [#/Vol] 6.6 10*3/uL 4.4 - 11.3 [facility] Work Phone: Complete Blood Count + Differential 0.06 {x10E9/L} See Below [facility] Work Phone: Comment on above: Reference Range: 0.0 0 - 0.10 Complete Blood Count + Differential 0.10 {x10E9/L} See Below [facility] Work Phone: Comment on above: Reference Range: 0.0 0 - 0.70 Complete Blood Count + Differential 0.45 {x10E9/L} See Below [facility] Work Phone: Comment on above: Reference Range: 0.1 0 - 1.00 Complete Blood Count + Differential 1.68 {x10E9/L} See Below [facility] Work Phone: Comment on above: Reference Range: 1.2 0 - 4.80 Complete Blood Count + Differential 4.33 {x10E9/L} See Below [facility] Work Phone: Comment on above: Reference Range: 1.2 0 - 7.70 Complete Blood Count + Differential 1.5 % 0.0 - 6.0 [facility] Work Phone: Complete Blood Count + Differential 0.3 % 0.0 - 0.9 [facility] Work Phone: Comment on above: Immature Granulocyte Count (IG) includes promyelocytes, myelocytes and metamyelocytes but does not include bands. Percent differential counts (%) should be interpreted in the context of the absolute cell counts (cells/L). Complete Blood Count + Differential 0.0 {/100_WBC} 0.0-0.0 [facility] Work Phone: HEMOGLOBIN A1Con 09-10-2022 Glucose [Mass/Vol] 85 mg/dL Normal [facility] Comment on above: Performed By: #### H BA1E #### [facility] [address] [place] [address] HbA1c (Bld) [Mass fraction] 4.6 % Normal [facility] Comment on above: Result Comment: Diag nosis of Diabetes-Adults Non-Diabetic: < or = 5.6% Increased risk for developing diabetes: 5.7-6.4% Diagnostic of diabetes: > or = 6.5% . Monitoring of Diabetes Age (y) Therapeutic Goal (%) Adults: >18 <7.0 Pediatrics: 13-18 <7.5 7-12 <8.0 0- 6 7.5-8.5 [place] [employer]. Diabetes Care 33(S1), Oct 2009. Performed By: #### H BA1E #### [facility] [address] [place] [address] 19-49 Yearson 09-10-2022 19-49 Years Diagnoses/Problems Health Maintenance/Risks Encounter for preventive health examination (V70.0) (Z00.00) Assessed Hyperlipidemia (272.4) (E78.5) Migraines (346.90) (G43.909) Anxiety and depression (300.00,311) (F41.9,F32.A) Screening for cervical cancer (V76.2) (Z12.4) Encounter for cervical Pap smear with pelvic exam (V76.2,V72.31) (Z01.419) Spotting (623.8) (N92.0) Orders Anxiety and depression Start: hydrOXYzine HCl - 25 MG Oral Tablet; TAKE 1 TABLET 3 TIMES DAILY NEEDED as needed for anxiety Rx By: Charlee Montano; Dispense: 7 Days ; #:21 Tablet; Refill: 0;For: Anxiety and depression; KARTHIK = N; Verified Transmission to [facility] #[id number]; Last Updated By: Radha Moyer; 09/10/2022 11:28:59 AM Renew: Sertraline HCl - 100 MG Oral Tablet; TAKE 1 TABLET DAILY DIRECTED Rx By: Charlee Montano; Dispense: 90 Days ; #:90 Tablet; Refill: 3;For: Anxiety and depression; KARTHIK = N; Sent To: [facility] #46[facility] Health Maintenance Complete Blood Count + Differential; Status:Active; Requested for:10Sep2022; Perform:Lab Services - Lab To Draw (Blood Test); Due:[id number];Ordered ; For:Health Maintenance; Ordered By:Charlee Montano; Comprehensive Metabolic Panel; Status:Active; Requested for:10Sep2022; Perform:Lab Services - Lab To Draw (Blood Test); Due:[id number];Ordered ; For:Health Maintenance; Ordered By:Charlee Montano; Hemoglobin A1C; Status:Active; Requested for:10Sep2022; Perform:Lab Services - Lab To Draw (Blood Test); Due:[id number];Ordered ; For:Health Maintenance; Ordered By:Charlee Montano; Lipid Panel; Status:Active; Requested for:10Sep2022; Perform:Lab Services - Lab To Draw (Blood Test); Due:[id number];Ordered ; For:Health Maintenance; Ordered By:Charlee Montano; Screening for cervical cancer 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, Cytology; Status:Hold For - Specimen/Data Collection; Requested for:10Sep2022; Perform: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 Cytology; Due:[id number];Ordered ; For:Screening for cervical cancer; Ordered By:Charlee Montano; Last Menstrual Period (LMP): : nursing PAP - Site : CERVICAL Cytology Order : ThinPrep PAP, Screening, HPV All Interp - Include Genotyping Spotting IO HCG, Urine Test; Status:Active - Perform Order; Requested for:10Sep2022; Perform:In Office; Due:[id number];Ordered ; For:Spotting; Ordered By:Charlee Montano; Patient Discussion/Summary Recommendations for women annual wellness exam: Make sure screenings for cervical and breast cancer are up to date if applicable- pap smears age 21-65, discuss mammogram starting at age 40 or sooner if positive family history of breast cancer; colonoscopy at age 45, earlier if positive family history of colon cancer STD screening Follow a healthy diet (Dash diet, Mediterranean diet) Exercise 150 min/wk Maintain healthy weight (BMI < 25) Do not smoke Alcohol in moderation (up to 1 drink/day) Get enough sleep (7-8 hours/night) Take a vitamin with folic acid if possibility of Make sure immunizations are up to date (influenza, Tdap) Premenopausal women need minimum 1,000 mg calcium and 600-800 IU vitamin D daily (combination of diet + supplement) Talk to your physician if you have concerns about depression or anxiety Visit dentist twice yearly Pap and pelvic performed today Labs ordered Follow up in 1 year, sooner if needed. We will call with the results to your labs/tests when available- if you don't hear from us for expected results, please call the office. Chief Complaint PT is here for a CPE History of Present Illness The patient presents for her annual wellness exam. Last pap/cervical cancer screening: Dr Lima Davey 2017 LMP/menstrual cycles: none - still nursing 13 month old baby - recently had some spotting and breast tenderness and wants a test today Contraception: had vasectomy earlier this year but never went for his follow up Immunizations: tdap - 08/2020 Diet: Follows a healthy diet Exercise: Gets regular exercise Anxiety- on zoloft - working well overall Having some occasional anxiety, would like to try something else as needed Previously saw neurology for migraines- taking mag and B2 for prevention with rizatriptan prn 'Scores and Scales' PHQ-9 10Sep2022 11:14AM PHQ-9 #1. Little interest or pleasure in doing things0-Not at all PHQ-9 #2. Feeling down, depressed, or hopelesS1-Several days PHQ-9 #3. Trouble falling or staying asleep, or sleeping too much0-Not at all PHQ-9 #4. Feeling tired or having little energy2-More than half the days PHQ-9 #5. Poor appetite or overeating1-Several days PHQ-9 #6. Feeling bad about yourself or you are a failure or that you have let yourself or your family down2-More than half the days PHQ-9 #7. Trouble concentrating on things, such as reading the newspaper or watch television3-Nearly every day PHQ-9 #8. Moving or speaking so slowly that other people could have noticed. Or the opposite-being (more content not included)... Normal Eventpig Hemoglobin A1Con 09-10-2022 Glucose [Mass/Vol] 85 mg/dL Jaci clayton [facility] Work Phone: HbA1c (Bld) [Mass fraction] 4.6 % FARIDANicole [facility] Work Phone: Comment on above: Diagnosis of Diabete s-Adults Non-Diabetic: < or = 5.6% Increased risk for developing diabetes: 5.7-6.4% Diagnostic of diabetes: > or = 6.5%. Monitoring of Diabetes Age (y) Therapeutic Goal (%) Adults: >18 <7.0 Pediatrics: 13-18 <7.5 7-12 <8.0 0- 6 7.5-8.5 [place] [employer]. Diabetes Care 33(S1), Oct 2009. IO HCG, Urine Test on 09-10-2022 HCG ( test) Ql (U) Negative [place] [facility] Work Phone: LIPID PANEL (CORONARY RISK 2 )on 09-10-2022 Cholesterol [Mass/Vol] 238 mg/dL High 0 - 199 [facility] Comment on above: Result Comment: . AGE DESIRABLE BORDERLINE HIGH HIGH 0-19 Y 0 - 169 170 - 199 >/= 200 20-24 Y 0 - 189 190 - 224 >/= 225 >24 Y 0 - 199 200 - 239 >/= 240 All ranges are based on fasting samples. Specific therapeutic targets will vary based on patient-specific cardiac risk. . Pediatric guidelines reference:Pediatrics 2011, 128(S5). Adult guidelines reference: NCEP ATPIII Guidelines, [place] 2001, 258:2486-97 . Venipuncture immediately after or during the administration of Metamizole may lead to falsely low results. Testing should be performed immediately prior to Metamizole dosing. Performed By: #### C BCDF #### [facility] [address] [place] [address] Cholesterol in HDL [Mass/Vol] 77.3 mg/dL Normal [facility] Comment on above: Result Comment: . AGE VERY LOW LOW NORMAL HIGH 0-19 Y < 35 < 40 40-45 ---- 20-24 Y ---- < 40 >45 ---- >24 Y ---- < 40 40-60 >60 . Performed By: #### C BCDF #### [facility] [address] [place] [address] Cholesterol in LDL [Mass/Vol] 126 mg/dL High 0 - 99 [facility] Comment on above: Result Comment: . NEAR BORD AGE DESIRABLE OPTIMAL HIGH HIGH VERY HIGH 0-19 Y 0 - 109 --- 110-129 >/= 130 ---- 20-24 Y 0 - 119 --- 120-159 >/= 160 ---- >24 Y 0 - 99 100-129 130-159 160-189 >/=190 . Performed By: #### C BCDF #### [facility] [address] [place] [address] Cholesterol in VLDL [Mass/Vol] 35 mg/dL Normal 0 - 40 [facility] Comment on above: Performed By: #### C BCDF #### [facility] [address] [place] [address] Cholesterol.total/Chol esterol in HDL [Mass ratio] 3.1 {ratio} Normal [facility] Comment on above: Result Comment: REF VALUES DESIRABLE < 3.4 HIGH RISK > 5.0 Performed By: #### C BCDF #### [facility] [address] [place] [address] Triglyceride [Mass/Vol] 173 mg/dL High 0 - 149 [facility] Comment on above: Result Comment: . AGE DESIRABLE BORDERLINE HIGH HIGH VERY HIGH 0 D-90 D 19 - 174 ---- ---- ---- 91 D- 9 Y 0 - 74 75 - 99 >/= 100 ---- 10-19 Y 0 - 89 90 - 129 >/= 130 ---- 20-24 Y 0 - 114 115 - 149 >/= 150 ---- >24 Y 0 - 149 150 - 199 200- 499 >/= 500 . Venipuncture immediately after or during the administration of Metamizole may lead to falsely low results. Testing should be performed immediately prior to Metamizole dosing. Performed By: #### C BCDF #### [facility] [address] [place] [address] Laboratory - Chemistry and C hemistry - challengeon 09-10-2022 Albumin BCP dye [Mass/Vol] 4.4 g/dL 3.4 - 5.0 [facility] Work Phone: ALP [Catalytic activity/Vol] 108 U/L 33 - 110 [facility] Work Phone: ALT With P-5'-P [Catalytic activity/Vol] 16 U/L 7 - 45 [facility] Work Phone: Comment on above: Patients treated wit h Sulfasalazine may generate falsely decreased results for ALT. Anion gap [Moles/Vol] 13 mmol/L 10 - 20 [facility] Work Phone: AST With P-5'-P [Catalytic activity/Vol] 17 U/L 9 - 39 [facility] Work Phone: Bilirubin [Mass/Vol] 0.5 mg/dL 0.0 - 1.2 [facility] Work Phone: Calcium [Mass/Vol] 9.8 mg/dL 8.6 - 10.6 [facility] Work Phone: Chloride [Moles/Vol] 106 mmol/L 98 - 107 [facility] Work Phone: CO2 [Moles/Vol] 27 mmol/L 21 - 32 [facility] Work Phone: Creatinine [Mass/Vol] 0.87 mg/dL See Below [facility] Work Phone: Comment on above: Reference Range: 0.5 0 - 1.05 Glucose [Mass/Vol] 99 mg/dL 74 - 99 [facility] Work Phone: Potassium [Moles/Vol] 4.3 mmol/L 3.5 - 5.3 [facility] Work Phone: Protein [Mass/Vol] 7.0 g/dL 6.4 - 8.2 [facility] Work Phone: Sodium [Moles/Vol] 142 mmol/L 136 - 145 [facility] Work Phone: Urea nitrogen [Mass/Vol] 17 mg/dL 6 - 23 [facility] Work Phone: Laboratory - Cytologyon 08-24 Cytology report Cyto stain.thin prep Doc (Cvx/Vag) Date of Procedure: 09/10/2022 Pathologist: [facility], Cytology Date Reported: 09/22/2022 Date Received: 09/10/2022 Submitting Physician: CHARLEE MONTANO D.O. [facility] Work Phone: Lipid Panelon 09-10-2022 Cholesterol [Mass/Vol] 238 mg/dL above hig h threshold 0 - 199 [facility] Work Phone: Comment on above: . AGE DESIRABLE BORD MAYTE HIGH HIGH 0-19 Y 0 - 169 170 - 199 >/= 200 20-24 Y 0 - 189 190 - 224 >/= 225 >24 Y 0 - 199 200 - 239 >/= 240 All ranges are based on fasting samples. Specific therapeutic targets will vary based on patient-specific cardiac risk.. Pediatric guidelines reference:Pediatrics 2011, 128(S5). Adult guidelines reference: NCEP ATPIII Guidelines, [place] 2001, 258:2486-97. Venipuncture immediately after or during the administration of Metamizole may lead to falsely low results. Testing should be performed immediately prior to Metamizole dosing. Cholesterol in HDL [Mass/Vol] 77.3 mg/dL [facility] Work Phone: Comment on above: . AGE VERY LOW LOW N ORMAL HIGH 0-19 Y < 35 < 40 40-45 ---- 20-24 Y ---- < 40 >45 ---- >24 Y ---- < 40 40-60 >60. Cholesterol in LDL [Mass/Vol] 126 mg/dL above high threshold 0 - 99 [facility] Work Phone: Comment on above: . NEAR BORD AGE LEONARDO RABLE OPTIMAL HIGH HIGH VERY HIGH 0-19 Y 0 - 109 --- 110-129 >/= 130 ---- 20-24 Y 0 - 119 --- 120-159 >/= 160 ---- >24 Y 0 - 99 100-129 130-159 160-189 >/=190. Cholesterol.total/Chol esterol in HDL [Mass ratio] 3.1 {ratio} [facility] Work Phone: Comment on above: REF VALUESDESIRABLE < 3.4HIGH RISK > 5.0 Triglyceride [Mass/Vol] 173 mg/dL above high threshold 0 - 149 [facility] Work Phone: Comment on above: . AGE DESIRABLE BORD MAYTE HIGH HIGH VERY HIGH 0 D-90 D 19 - 174 ---- ---- ----91 D- 9 Y 0 - 74 75 - 99 >/= 100 ---- 10-19 Y 0 - 89 90 - 129 >/= 130 ---- 20-24 Y 0 - 114 115 - 149 >/= 150 ---- >24 Y 0 - 149 150 - 199 200- 499 >/= 500. Venipuncture immediately after or during the administration of Metamizole may lead to falsely low results. Testing should be performed immediately prior to Metamizole dosing. Lipid Panel 35 mg/dL 0 - 40 [facility] Work Phone: No Panel Informationon 09-10 89 {mL/min/1.73m2} >90 [facility] Work Phone: Comment on above: CALCULATIONS OF TATA MATED GFR ARE PERFORMED USING THE 2020 CKD-EPI STUDY REFIT EQUATION WITHOUT THE RACE VARIABLE FOR THE IDMS-TRACEABLE CREATININE METHODS.https://jasn.asnjournals.org/content/early//A SN.7566692935 Not at all - 0 [facility] Work Phone: Nearly every day - 3 [facility] Work Phone: Over half the days - 2 [facility] Work Phone: Several days - 1 [facility] Work Phone: Mild Anxiety [facility] Work Phone: Very difficult [facility] Work Phone: Comment on above: How difficult have t hose problems made it for you to do your work, take care of things at home, or get along with other people? 9 1 [facility] Work Phone: Comment on above: Over the last two we eks, how often have you been bothered by the following problems? Feeling nervous, anxious, or on edge: Nearly every day - 3Not being able to stop or control worrying: Several days - 1Worrying too much about different things: Not at all - 0Trouble relaxing: Over half the days - 2Being so restless that it's hard to sit still: Not at all - 0Becoming easily annoyed or irritable: Nearly every day - 3Feeling afraid as if something awful might happen: Not at all - 0 ALLIED HEALTHon 05-18-2022 ALLIED HEALTH HNO ID: [id number] Author: Kiah Siu RT(R) Service: Radiology Author Type: Technologist Type: Allied Health Filed: 05/18/2022 4:18 PM Note Text: Radiology Service Progress Note PATIENT NAME: Collin Roy DATE OF SERVICE: May 18, 2022 TIME: 4:18 PM PATIENT IDENTITY VERIFICATION COMPLETED USING TWO (2) IDENTIFIERS: Name and Date of confirmed by patient verbally. FALL SCREENING: Has the patient had 2 falls in the last year or 1 fall with injury or currently using an Ambulatory Assistive Device (Walker, Cane, Wheelchair, Crutches, etc.)? No PATIENT GENDER DATA: Female. status: : No status: NO. PATIENT RELEVANT IMPLANT DATA REVIEWED: Not Applicable RADIOLOGY DEPARTMENT: General X-ray: Exam(s) Completed: Lower Extremity X-Ray(s): Foot, Right PERIPHERAL IV DATA: Not applicable SIGNED BY: RT Margie(Alaina) May 18, 2022 4:18 PM [facility] COLLIN ROY ([id number]) 1990 F Date Time Provider Department 05/18/22 2:15 PM [facility] During your visit today, we recorded the following information about you: Temperature Pulse Respiration Blood pressure 97.1 degrees 74/minute 18/minute 108/72 Weight Last Period 58.5 kg 11/04/20 Rachel Shirley DO 05/18/2022 4:05 PM Signed Collin Roy is a 32 year old FEMALE who presents with Pain (foot) (RIGHT FOOT PAIN X 3 DAYS NO KNOWN INJURY) HPI PAST MEDICAL HISTORY Diagnosis Date - Anxiety - Depression ACTIVE PROBLEM LIST Acute Sinusitis Current Outpatient Medications Medication Sig Dispense Refill - sertraline (ZOLOFT) 100 mg tablet 1 tab(s) - rizatriptan (MAXALT) 10 mg tablet TAKE 1 TABLET BY MOUTH AT ONSET OF HEADACHE. MAY REPEAT EVERY 2 HOURS NEEDED. MAXIMUM OF 3 TABLETS IN 24 HOURS - magnesium oxide,aspartate,citr (TRIPLE MAGNESIUM COMPLEX) 400 mg magnesium cap Take by mouth. - loratadine (CLARITIN) 10 mg tablet Take 10 mg by mouth. - Etonogestrel-Ethinyl Estradiol (NUVARING) 0.12-0.015 mg/24 hr vaginal ring Use 1 Each vaginally as directed. Insert vaginally and leave in place for 3 consecutive weeks, then remove for 1 week. No current facility-administered medications for this visit. Social History Tobacco Use - Smoking status: Never Smoker - Smokeless tobacco: Never Used Substance Use Topics - Alcohol use: Yes Alcohol/week: 7.5 standard drinks Types: 1 Glasses of Wine (5oz), 1 Martini/Manhattan Drinks per week Comment: Occasionally - Drug use: No Alcohol Use: Approximately 4.5 oz/week [which includes 1 Glasses of Wine (5oz), 1 Martini/Manhattan Drinks per week] (Occasionally) Tobacco Use: Never FAMILY HISTORY Problem Relation Age of Onset - Hypertension Mother - other (Depression) Sister - other (Mental Illness) Sister - Cancer Brother Melanoma en situ - Headache Brother Review of Systems Musculoskeletal: Patient is complaining of pain of the right foot along the fifth metatarsal. She has redness at the proximal and distal end of that metatarsal. No history of wearing new shoes or tight or irregular footwear. The patient does not recall any injury she does not recall any snapping popping cracking or anything that would make her think that her foot was hurt however 3 days ago it started getting increasingly more painful and now it is turning reddish on the side of the fifth metatarsal she is got a no difficulty moving her toes other injury of the foot or problem with the foot. All other systems reviewed and are negative. BP 108/72 Pulse 74 Temp 97.1 Resp 18 Wt 129 lb (58.5kg) SpO2 98% LMP 11/04/2020 Physical Exam Vitals and nursing note reviewed. Constitutional: Appearance: Normal appearance. Musculoskeletal: General: Swelling and tenderness present. Comments: Examination of the right foot pulses are +2/4 capillary refill less than 3 seconds normal motor neurovascular and sensory to the digits she has no tenderness over the Achilles no tenderness over the heel she has some redness noted over the proximal and distal portion of the fifth metatarsal no other redness swelling or deformity is noted she has normal range of motion of the toes and her foot is good and warm pulses again +2/4 examination of that fifth metatarsal shows that she is got some redness on the proximal end and tenderness there tenderness with flexion of that fifth metatarsal and tenderness with pressure on the bottom of the foot along the plantar aspect of the fifth metatarsal. Patient does not have any open wounds on the bottom of the foot. I do not see any punctures. Will go to get an x-ray and evaluate for stress fracture or possible fracture of the fifth metatarsal. Neurological: Mental Status: She is alert. ASSESSMENT/PLAN: 1. Foot pain, right - ICD9: 729.5, ICD10: M79.671 - XR FOOT GENERAL 3V AP/LAT/OBL RIGHT - POST - OP SHOE -Elevate the foot. Ice 20 minutes twice a day. Place a layer between the ice and your skin. Wear the postop shoe as directed. You may use Tylenol as needed for aches or pains. If your foot continues to hurt I strongly suggest you get rechecked in 10 days. It is possible to have a stress fracture that does not show initially. If it would continue to hurt your physician may choose to do further testing. Rachel Shirley, 05/18/2022 4:03 PM Signed Foot Sprain You have been diagnosed with a sprain of your foot. - A sprain of your foot is an injury to the ligaments in your foot. It IS NOT the same as a sprain of the ankle. A sprain is an injury to a ligament, usually a tear or partial tear. Sprains can often be as painful as a fracture. Sprains can be divided into 3 categories by the amount of injury to the ligaments. A first-degree sprain is considered a minor tear w (more content not included)... Normal [facility] No Panel Informationon 05-18 [facility] XR FOOT 3V AP/LAT/OBL RTon 0 05-18-2022 XR FOOT 3V AP/LAT/OBL RT * * *Final Report* * * DATE OF EXAM: May 18 2022 4:17PM RPX [id number] - XR FOOT 3V AP/LAT/OBL RT / PROCEDURE REASON: Foot pain, right * * * * Physician Interpretation * * * * XR FOOT 3V AP/LAT/OBL RT Ordering Physician: RACHEL SHIRLEY RIGHT FOOT 3 VIEWS Clinical Statement: Pain. No comparison FINDINGS: No fracture or dislocation. The osseous structures are intact. The alignment is normal. IMPRESSION: No osseous abnormality Caramel Candy Maker: LINDSAY Transcribe Date/Time: May 18 2022 4:25P Dictated by : DILLON COX MD This examination was interpreted and the report reviewed and electronically signed by: DILLON COX MD on May 18 2022 4:26PM EST [id number] Normal [facility] CBC AND DIFFERENTIALon 04-16 % AUTOMATED IMMATURE GRAN 0.4 % Normal 0.0 - 0.9 [facility] Comment on above: Result Comment: Radha ture Granulocyte Count (IG) includes promyelocytes, myelocytes and metamyelocytes but does not include bands. Percent differential counts (%) should be interpreted in the context of the absolute cell counts (cells/L). Performed By: #### C BCDF #### [facility] [address] [place] [address] Basophils (Bld) [#/Vol] 0.05 10*3/uL Normal 0.00 - 0.10 [facility] Comment on above: Performed By: #### C BCDF #### [facility] [address] [place] [address] Basophils/100 WBC (Bld) 0.5 % Normal 0.0 - 2.0 [facility] Comment on above: Performed By: #### C BCDF #### [facility] [address] [place] [address] Eosinophils (Bld) [#/Vol] 0.34 10*3/uL Normal 0.00 - 0.70 [facility] Comment on above: Performed By: #### C BCDF #### [facility] [address] [place] [address] Eosinophils/100 WBC (Bld) 3.6 % Normal 0.0 - 6.0 [facility] Comment on above: Performed By: #### C BCDF #### [facility] [address] [place] [address] Erythrocyte distribution width (RBC) [Ratio] 12.5 % Normal 11.5 - 14.5 [facility] Comment on above: Performed By: #### C BCDF #### [facility] [address] [place] [address] Hematocrit (Bld) [Volume fraction] 44.7 % Normal 36.0 - 46.0 [facility] Comment on above: Performed By: #### C BCDF #### [facility] [address] [place] [address] Hemoglobin (Bld) [Mass/Vol] 14.3 g/dL Normal 12.0 - 16.0 [facility] Comment on above: Performed By: #### C BCDF #### [facility] [address] [place] [address] Lymphocytes (Bld) [#/Vol] 1.21 10*3/uL Normal 1.20 - 4.80 [facility] Comment on above: Performed By: #### C BCDF #### [facility] [address] [place] [address] Lymphocytes/100 WBC (Bld) 12.8 % Normal 13.0 - 44.0 [facility] Comment on above: Performed By: #### C BCDF #### [facility] [address] [place] [address] MCHC (RBC) [Mass/Vol] 32.0 g/dL Normal 32.0 - 36.0 [facility] Comment on above: Performed By: #### C BCDF #### [facility] [address] [place] [address] MCV (RBC) [Entitic vol] 93 fL Normal 80 - 100 [facility] Comment on above: Performed By: #### C BCDF #### [facility] [address] [place] [address] Monocytes (Bld) [#/Vol] 0.60 10*3/uL Normal 0.10 - 1.00 [facility] Comment on above: Performed By: #### C BCDF #### [facility] [address] [place] [address] Monocytes/100 WBC (Bld) 6.3 % Normal 2.0 - 10.0 [facility] Comment on above: Performed By: #### C BCDF #### [facility] [address] [place] [address] Neutrophils (Bld) [#/Vol] 7.21 10*3/uL Normal 1.20 - 7.70 [facility] Comment on above: Performed By: #### C BCDF #### [facility] [address] [place] [address] Neutrophils/100 WBC (Bld) 76.4 % Normal 40.0 - 80.0 [facility] Comment on above: Performed By: #### C BCDF #### [facility] [address] [place] [address] NUCLEATED RBC 0.0 /100 WBC Normal 0.0-0.0 [facility] Comment on above: Performed By: #### C BCDF #### [facility] [address] [place] [address] Platelets (Bld) [#/Vol] 245 10*3/uL Normal 150 - 450 [facility] Comment on above: Performed By: #### C BCDF #### [facility] [address] [place] [address] RBC 4.83 x10E12/L Normal 4.00 - 5.20 [facility] Comment on above: Performed By: #### C BCDF #### [facility] [address] [place] [address] WBC (Bld) [#/Vol] 9.5 10*3/uL Normal 4.4 - 11.3 [facility] Comment on above: Performed By: #### C BCDF #### [facility] [address] [place] [address] COMPREHENSIVE PANELon 2021 Albumin [Mass/Vol] 4.5 g/dL Normal 3.4 - 5.0 [facility] Comment on above: Performed By: #### C MP #### [facility] [address] [place] [address] ALP [Catalytic activity/Vol] 89 U/L Normal 33 - 110 [facility] Comment on above: Performed By: #### C MP #### [facility] [address] [place] [address] ALT [Catalytic activity/Vol] 11 U/L Normal 7 - 45 [facility] Comment on above: Result Comment: Candy ents treated with Sulfasalazine may generate falsely decreased results for ALT. Performed By: #### C MP #### [facility] [address] [place] [address] Anion gap [Moles/Vol] 16 mmol/L Normal 10 - 20 [facility] Comment on above: Performed By: #### C MP #### [facility] [address] [place] [address] AST [Catalytic activity/Vol] 16 U/L Normal 9 - 39 [facility] Comment on above: Performed By: #### C MP #### [facility] [address] [place] [address] Bilirubin [Mass/Vol] 0.6 mg/dL Normal 0.0 - 1.2 [facility] Comment on above: Performed By: #### C MP #### [facility] [address] [place] [address] Calcium [Mass/Vol] 9.8 mg/dL Normal 8.6 - 10.6 [facility] Comment on above: Performed By: #### C MP #### [facility] [address] [place] [address] Chloride [Moles/Vol] 104 mmol/L Normal 98 - 107 [facility] Comment on above: Performed By: #### C MP #### [facility] [address] [place] [address] Creatinine [Mass/Vol] 0.97 mg/dL Normal 0.50 - 1.05 [facility] Comment on above: Performed By: #### C MP #### [facility] [address] [place] [address] GFR/1.73 sq M.predicted among non-blacks MDRD (S/P/Bld) [Vol rate/Area] 79 mL/min/{1.73_m2} Normal >90 [facility] Comment on above: Result Comment: CALC ULATIONS OF ESTIMATED GFR ARE PERFORMED USING THE 2020 CKD-EPI STUDY REFIT EQUATION WITHOUT THE RACE VARIABLE FOR THE IDMS-TRACEABLE CREATININE METHODS. https://jasn.asnjournals.org/content/early/ASN.88729 75423 Performed By: #### C MP #### [facility] [address] [place] [address] Glucose [Mass/Vol] 63 mg/dL Low 74 - 99 [facility] Comment on above: Performed By: #### C MP #### [facility] [address] [place] [address] HCO3 (Bld) [Moles/Vol] 26 mmol/L Normal 21 - 32 [facility] Comment on above: Performed By: #### C MP #### [facility] [address] [place] [address] Potassium [Moles/Vol] 4.8 mmol/L Normal 3.5 - 5.3 [facility] Comment on above: Performed By: #### C MP #### [facility] [address] [place] [address] Protein [Mass/Vol] 7.2 g/dL Normal 6.4 - 8.2 [facility] Comment on above: Performed By: #### C MP #### [facility] [address] [place] [address] Sodium [Moles/Vol] 141 mmol/L Normal 136 - 145 [facility] Comment on above: Performed By: #### C MP #### [facility] [address] [place] [address] Urea nitrogen [Mass/Vol] 15 mg/dL Normal 6 - 23 [facility] Comment on above: Performed By: #### C MP #### [facility] [address] [place] [address] UA MICROSCOPICon 04-16-2022 AMORPHOUS CRYSTAL 3+ /HPF Abnormal [facility] Comment on above: Performed By: #### U AMIC #### [facility] [address] [place] [address] BACTERIA 1+ /HPF Abnormal [facility] Comment on above: Performed By: #### U AMIC #### [facility] [address] [place] [address] Mucus Ql (Urine sed) 4+ /LPF Normal [facility] Comment on above: Performed By: #### U AMIC #### [facility] [address] [place] [address] RBC 1 /HPF Normal 0-5 [facility] Comment on above: Performed By: #### U AMIC #### [facility] [address] [place] [address] SQUAMOUS EPITH. CELLS 1 /HPF Normal [facility] Comment on above: Performed By: #### U AMIC #### [facility] [address] [place] [address] WBC 2 /HPF Normal 0-5 [facility] Comment on above: Performed By: #### U AMIC #### [facility] [address] [place] [address] URINALYSISon 04-16-2022 Appearance (U) HAZY Normal CLEAR [facility] Comment on above: Performed By: #### U A #### [facility] [address] [place] [address] Bilirubin Ql (U) Negative Normal NEGATIVE [facility] Comment on above: Performed By: #### U A #### [facility] [address] [place] [address] Color (U) KAYLIN Normal STRAW,YELLOW [facility] Comment on above: Performed By: #### U A #### [facility] [address] [place] [address] Glucose Ql (U) Negative Normal NEGATIVE [facility] Comment on above: Performed By: #### U A #### [facility] [address] [place] [address] Hemoglobin Ql (U) Negative Normal NEGATIVE [facility] Comment on above: Performed By: #### U A #### [facility] [address] [place] [address] Ketones Ql (U) Negative Normal NEGATIVE [facility] Comment on above: Performed By: #### U A #### [facility] [address] [place] [address] Leukocyte esterase Test strip Ql (U) TRACE Abnormal NEGATIVE [facility] Comment on above: Performed By: #### U A #### [facility] [address] [place] [address] Nitrite Ql (U) Negative Normal NEGATIVE [facility] Comment on above: Performed By: #### U A #### [facility] [address] [place] [address] pH (U) 5.0 [pH] Normal 5.0 - 8.0 [facility] Comment on above: Performed By: #### U A #### [facility] [address] [place] [address] Protein Ql (U) 100 (2+) Abnormal NEGATIVE [facility] Comment on above: Performed By: #### U A #### [facility] [address] [place] [address] Specific gravity (U) [Rel density] 1.041 High 1.005 - 1.035 [facility] Comment on above: Performed By: #### U A #### [facility] [address] [place] [address] Urobilinogen (U) [Mass/Vol] mg/dL Normal 0.0 - 1.9 [facility] Comment on above: Performed By: #### U A #### [facility] [address] [place] [address] Blood Pressure Cuff Sizeon 0 04-15-2022 Blood Pressure Cuff Size Adult [facility] Work Phone: Complete Blood Count + Diffe rentialon 04-15-2022 Basophils/100 WBC (Bld) 0.5 % 0.0 - 2.0 [facility] Work Phone: Erythrocyte distribution width (RBC) [Ratio] 12.5 % See Below [facility] Work Phone: Comment on above: Reference Range: 11. 5 - 14.5 Hematocrit (Bld) [Volume fraction] 44.7 % See Below [facility] Work Phone: Comment on above: Reference Range: 36. 0 - 46.0 Hemoglobin (Bld) [Mass/Vol] 14.3 g/dL See Below [facility] Work Phone: Comment on above: Reference Range: 12. 0 - 16.0 Lymphocytes/100 WBC (Bld) 12.8 % See Below [facility] Work Phone: Comment on above: Reference Range: 13. 0 - 44.0 MCHC (RBC) [Mass/Vol] 32.0 g/dL See Below [facility] Work Phone: Comment on above: Reference Range: 32. 0 - 36.0 MCV (RBC) [Entitic vol] 93 fL 80 - 100 [facility] Work Phone: Monocytes/100 WBC (Bld) 6.3 % 2.0 - 10.0 [facility] Work Phone: Neutrophils/100 WBC (Bld) 76.4 % See Below [facility] Work Phone: Comment on above: Reference Range: 40. 0 - 80.0 Platelets (Bld) [#/Vol] 245 10*3/uL 150 - 450 [facility] Work Phone: RBC (Bld) [#/Vol] 4.83 {x10E12/L} See Below [facility] Work Phone: Comment on above: Reference Range: 4.0 0 - 5.20 WBC (Bld) [#/Vol] 9.5 10*3/uL 4.4 - 11.3 [facility] Work Phone: Complete Blood Count + Differential 0.05 {x10E9/L} See Below [facility] Work Phone: Comment on above: Reference Range: 0.0 0 - 0.10 Complete Blood Count + Differential 0.34 {x10E9/L} See Below [facility] Work Phone: Comment on above: Reference Range: 0.0 0 - 0.70 Complete Blood Count + Differential 0.60 {x10E9/L} See Below [facility] Work Phone: Comment on above: Reference Range: 0.1 0 - 1.00 Complete Blood Count + Differential 1.21 {x10E9/L} See Below [facility] Work Phone: Comment on above: Reference Range: 1.2 0 - 4.80 Complete Blood Count + Differential 7.21 {x10E9/L} See Below [facility] Work Phone: Comment on above: Reference Range: 1.2 0 - 7.70 Complete Blood Count + Differential 3.6 % 0.0 - 6.0 [facility] Work Phone: Complete Blood Count + Differential 0.4 % 0.0 - 0.9 [facility] Work Phone: Comment on above: Immature Granulocyte Count (IG) includes promyelocytes, myelocytes and metamyelocytes but does not include bands. Percent differential counts (%) should be interpreted in the context of the absolute cell counts (cells/L). Complete Blood Count + Differential 0.0 {/100_WBC} 0.0-0.0 [facility] Work Phone: Cult, Urineon 04-15-2022 Bacteria identified Cx Nom (U) PATIENT: COLLIN ROY LOCATION: C0624 BILL#: [id number] : 86 AGE: SEX: F ORDERED BY: LEO YE SOURCE: URINE [facility] Work Phone: Laboratory - Chemistry and C hemistry - challengeon 04-15-2022 Albumin BCP dye [Mass/Vol] 4.5 g/dL 3.4 - 5.0 [facility] Work Phone: ALP [Catalytic activity/Vol] 89 U/L 33 - 110 [facility] Work Phone: ALT With P-5'-P [Catalytic activity/Vol] 11 U/L 7 - 45 [facility] Work Phone: Comment on above: Patients treated wit h Sulfasalazine may generate falsely decreased results for ALT. Anion gap [Moles/Vol] 16 mmol/L 10 - 20 [facility] Work Phone: AST With P-5'-P [Catalytic activity/Vol] 16 U/L 9 - 39 [facility] Work Phone: Bilirubin [Mass/Vol] 0.6 mg/dL 0.0 - 1.2 [facility] Work Phone: Calcium [Mass/Vol] 9.8 mg/dL 8.6 - 10.6 [facility] Work Phone: Chloride [Moles/Vol] 104 mmol/L 98 - 107 [facility] Work Phone: CO2 [Moles/Vol] 26 mmol/L 21 - 32 [facility] Work Phone: Creatinine [Mass/Vol] 0.97 mg/dL See Below [facility] Work Phone: Comment on above: Reference Range: 0.5 0 - 1.05 Glucose [Mass/Vol] 63 mg/dL below low threshold 74 - 99 [facility] Work Phone: Potassium [Moles/Vol] 4.8 mmol/L 3.5 - 5.3 [facility] Work Phone: Protein [Mass/Vol] 7.2 g/dL 6.4 - 8.2 [facility] Work Phone: Sodium [Moles/Vol] 141 mmol/L 136 - 145 [facility] Work Phone: Urea nitrogen [Mass/Vol] 15 mg/dL 6 - 23 [facility] Work Phone: No Panel Informationon 04-15 79 {mL/min/1.73m2} >90 [facility] Work Phone: Comment on above: CALCULATIONS OF TATA MATED GFR ARE PERFORMED USING THE 2020 CKD-EPI STUDY REFIT EQUATION WITHOUT THE RACE VARIABLE FOR THE IDMS-TRACEABLE CREATININE METHODS.https://jasn.asnjournals.org/content/early//A SN.2886942547 Office Visit (Primary Care T xt/Forms)on 04-15-2022 Follow-up visit Diagnoses/Problems Assessed Fever and chills (780.60) (R50.9) Dark urine (791.9) (R82.998) Orders Dark urine, Fever and chills Complete Blood Count + Differential; Status:Complete; Done: 15Apr2022 04:39PM Comprehensive Metabolic Panel; Status:Complete; Done: 15Apr2022 04:39PM Cult, Urine; Status:Complete; Done: [id number] 04:39PM Urinalysis; Status:Complete; Done: [id number] 04:39PM Patient Discussion/Summary Body aches, dark urine, fever, chills: Dark urine starting 2.5 weeks ago, other symptoms starting 1 week ago. Dark urine is suggestive possible liver pathology or kidney infection. Ordered CBC, liver enzymes, and kidney function labs. If blood work is negative, will consider mastitis as possible diagnosis. Any testing results will be available in your [facility], our secure online health management tool. If you do not have an active login please go online at: [email or web address] For any assistance needed with login or using please call [phone] Tuesday-Tuesday 8am-8pm or email [email or web address] Follow up pending lab results. By signing my name below I, rola Gonzalez, attest that this documentation has been prepared under the direction and in the presence of Dr. Leo Ye. 04/15/22 Chief Complaint Dark urine History of Present Illness Collin is here for dark urine. Starting last week she started not to feel right. Fever started yesterday afternoon at 100.9 Last night 102.9 This morning 100.8 2 pm it was in the 90s No medications since 9:45 am this morning Has been alternating Tylenol and ibuprofen Symptoms Body aches Joint stiffness Dark urine, Random bruising Chills. Has been pushing a lot of fluids and noticed that she is not urinated a lot Has a red line on right breast- she is breast feeding at this time. Tested positives for covid on 03/09/2022 then negative 1o days later 32 y/o female here today c/o dark urine, body aches, joint stiffness, chills, fatigue, headache and random bruising. Onset of symptoms 1 week ago. Dark urine started about 2 weeks ago - describes color as brown. Reports fever starting yesterday afternoon of 100.9. Temp of 102.9 last night, then 100.8 this morning. Denies abnormal stools. She states she is . She states breasts have been sore, and yesterday she noticed red line on the right breast. Treated fever with Tylenol and Advil. Patient had COVID about 1 month ago. Symptoms had completely resolved. She was then treated with antibiotics for sinus infection which had also subsided. No known exposure to any illness since then. She takes vitamin D, magnesium, and zinc supplements. Medications include Zoloft for mood, and Claritin and Flonase for allergies. Review of Systems constitutional: as per HPI eyes:as per HPI CV:as per HPI Respiratory:as per HPI GI:as per HPI neuro:as per HPI endo:as per HPI heme/lymph:as per HPI Active Problems Problems Anxiety and depression (300.00,311) (F41.9,F32.A) Elevated serum creatinine (790.99) (R79.89) Hyperlipidemia (272.4) (E78.5) Migraines (346.90) (G43.909) Past Medical History Problems History of COVID-19 (079.89) (U07.1) History of acute sinusitis (V12.69) (Z87.09) History of iron deficiency anemia (V12.3) (Z86.2) No pertinent past medical history (V49.89) (Z78.9) Surgical History Problems History of Sinus surgery History of Tonsillectomy History of [place] tooth extraction Family History Mother Family history of hypertension (V17.49) (Z82.49) Brother Family history of Melanoma in situ of the skin Maternal Grandfather Family history of malignant neoplasm of prostate (V16.42) (Z80.42) Paternal Grandfather Family history of colon cancer (V16.0) (Z80.0) Paternal Aunt Family history of breast cancer (V16.3) (Z80.3) Social History Problems Caffeine use (V49.89) (Z78.9) Employed Never a smoker Non-smoker (V49.89) (Z78.9) Occasional alcohol use Parent Current Meds Medication NameInstruction Flonase 50 MCG/ACT SUSP Rizatriptan Benzoate 10 MG Oral TabletTAKE 1 TABLET AT ONSET OF HEADACHE. MAY REPEAT EVERY 2 HOURS NEEDED. MAXIMUM OF 3 TABLETS IN 24 HOURS Sertraline HCl - 100 MG Oral TabletTAKE 1 TABLET DAILY DIRECTED. Allergies Medication No Known Drug Allergies Vitals Vital Signs Recorded: 15Apr2022 04:19PM Temperature: 99.5 F, Temporal Heart Rate: 106 Respiration: 14 Systolic: 93, RUE, Sitting Diastolic: 61, RUE, Sitting Blood Pressure Cuff Size: Adult O2 Saturation: 98, Face Mask Physical Exam Constitutional - Well developed, well nourished, well hydrated and no acute distress. Vital signs reviewed. Pulmonary - No rales or wheezing. Good air exchange. Cardiovascular - Regular rate and rhythm. No significant murmur. Chest - Breasts: Abnormal. Right breast: area of erythema. Mild redness and tenderness right lower inner breast, line (more content not included)... Normal Eventpig URINE CULTURE,BACTERIALon URINE CULTURE,BACTERIAL PATIENT: COLLIN ROY LOCATION: [facility] [place] BILL#: [id number] : 86 AGE: SEX: F ORDERED BY: LEO YE SOURCE: URINE COLLECTED: 04/15/22 16:39 ANTIBIOTICS AT ELMO.: RECEIVED : 04/16/22 07:37 SITE: Unspecified R E S U L T S URINE CULTURE,BACTERIAL FINAL 04/17/22 05:[address] [facility] Comment on above: Performed By: #### U [facility] #### [facility] [address] [place] [address] Urinalysison 04-15-2022 Color (U) KAYLIN See Below [facility] Work Phone: [phone] Comment on above: Reference Range: STR AW,YELLOW Glucose Ql (U) Negative NEGATIVE [facility] Work Phone: Ketones Ql (U) Negative NEGATIVE [facility] Work Phone: Leukocyte esterase Test strip Ql (U) TRACE Abnormal NEGATIVE [facility] Work Phone: [phone] pH (U) 5.0 [pH] 5.0 - 8.0 [facility] Work Phone: [phone] Protein (U) [Mass/Vol] 100 (2+) Abnormal NEGATIVE [facility] Work Phone: [phone] RBC (U) [#/Vol] Negative NEGATIVE [facility] Work Phone: [phone] Specific gravity (U) [Rel density] 1.041 1 above high threshold See Below [facility] Work Phone: Comment on above: Reference Range: 1.0 05 - 1.035 Urinalysis Negative NEGATIVE [facility] Work Phone: [phone] Urinalysis <2.0 0.0 - 1.9 [facility] Work Phone: [phone] Urinalysis HAZY CLEAR [facility] Work Phone: Urinalysis, Microscopicon Urinalysis, Microscopic 3+ Abnormal [facility] Work Phone: Urinalysis, Microscopic 4+ [facility] Work Phone: Urinalysis, Microscopic 1+ Abnormal [facility] Work Phone: Urinalysis, Microscopic 1 {/HPF} 0-5 [facility] Work Phone: Urinalysis, Microscopic 2 {/HPF} 0-5 [facility] Work Phone: Blood Pressure Cuff Sizeon 0 03-16-2022 Tobacco use status CPHS b) No [facility] Work Phone: Blood Pressure Cuff Size Adult [facility] Work Phone: Office Visit (Primary Care T xt/Forms)on 03-16-2022 Follow-up visit Diagnoses/Problems Assessed COVID-19 (079.89) (U07.1) Acute sinusitis (461.9) (J01.90) Orders Acute sinusitis Start: Amoxicillin 875 MG Oral Tablet; TAKE 1 TABLET EVERY 12 HOURS DAILY Patient Discussion/Summary COVID19 day #10 of symptoms today Clinically improving Discussed possible secondary bacterial sinus infection - she would like to treat with antibiotics Acute sinusitis- Please fill prescription for antibiotic as prescribed. Consider trial of daily probiotic to help minimize GI side effects - Align, Culturelle, Florajen3, DanActive, Florastor are recommended. For nasal congestion, please use Gianluca Med Sinus Rinse at least once to twice daily to rinse out your sinuses. I recommend that you first use Afrin decongestant nasal spray (oxymetazoline), wait 5 minutes, and then use the sinus rinse. Afrin can also be used for 2-3 days only and then must be stopped. You can also try Flonase nasal spray over the counter - 1-2 sprays in each nostril daily. You can also consider Sudafed or Phenylephrine for nasal congestion but avoid if have hypertension and be aware can stimulate and cause problems sleeping. Do not use for more than 5 days. For drainage problems, try Vanessa, Claritin or Zyrtec. Zyrtec should be dosed at night as can cause mild sedation. Chief Complaint pt is being seen for a cough, sometimes productive, other times it feels there is stuff stuck in her chest, chest feels tight, feels lungs are sore feels fatigue. 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 History of Present Illness Tested positive for covid19 on 03/08, symptoms started 03/06 Body aches, sinus pressure, chest congestion, cough Feels winded/short of breath Racing heart with little exertion Headaches, fatigue Cough both dry and productive, notes chest congestion Slowly starting to feel better Taking claritin, flonase, nasal saline Covid vaccinated and boosted Review of Systems As in HPI Active Problems Problems Anxiety and depression (300.00,311) (F41.9,F32.A) Elevated serum creatinine (790.99) (R79.89) Hyperlipidemia (272.4) (E78.5) Migraines (346.90) (G43.909) Past Medical History Problems History of iron deficiency anemia (V12.3) (Z86.2) No pertinent past medical history (V49.89) (Z78.9) Surgical History Problems History of Sinus surgery History of Tonsillectomy History of [place] tooth extraction Family History Mother Family history of hypertension (V17.49) (Z82.49) Brother Family history of Melanoma in situ of the skin Maternal Grandfather Family history of malignant neoplasm of prostate (V16.42) (Z80.42) Paternal Grandfather Family history of colon cancer (V16.0) (Z80.0) Paternal Aunt Family history of breast cancer (V16.3) (Z80.3) Social History Problems Caffeine use (V49.89) (Z78.9) Employed Never a smoker Non-smoker (V49.89) (Z78.9) Occasional alcohol use Parent Current Meds Medication NameInstruction Flonase 50 MCG/ACT SUSP Rizatriptan Benzoate 10 MG Oral TabletTAKE 1 TABLET AT ONSET OF HEADACHE. MAY REPEAT EVERY 2 HOURS NEEDED. MAXIMUM OF 3 TABLETS IN 24 HOURS Sertraline HCl - 100 MG Oral TabletTAKE 1 TABLET DAILY DIRECTED. Allergies Medication No Known Drug Allergies Vitals Vital Signs Recorded: 16Mar2022 12:44PM Temperature: 98 F, Temporal Heart Rate: 94 Respiration: 16 Systolic: 102, RUE, Sitting Diastolic: 65, RUE, Sitting Blood Pressure Cuff Size: Adult Weight: 130 lb 7 oz BMI Calculated: 25.05 kg/m2 BSA Calculated: 1.57 Tobacco Use: b) No O2 Saturation: 97, RA Physical Exam Constitutional: Well developed, well nourished, alert and in no acute distress. Head and Face: NC/AT Eyes: Normal external exam. ENT: External inspection of ears normal, tympanic membranes visualized and normal. Nasal mucosa and turbinates swollen and erythematous, nasal discharge present. Oral mucosa moist, oropharynx clear without tonsillar exudate or erythema. Neck: Supple. No cervical lymphadenopathy Cardiovascular: Regular rate and rhythm, normal S1 and S2, no murmurs, gallops, or rubs. Pulmonary: No respiratory distress, lungs clear to auscultation bilaterally. No wheezes, rhonchi, rales. Skin: Warm, well perfused, normal skin turgor and color. Neurologic: Cranial nerves II-XII grossly intact. Signatures Electronically signed by : Charlee Montano DO; Mar 16 2022 1:12PM EST (Author) Normal Touchworks FERRITINon 01-05-2022 FERRITIN 23 ug/L Normal 8 - 150 [facility] Comment on above: Performed By: #### F ERRI #### [facility] [address] [place] [address] IRON + TIBCon 01-05-2022 % SATURATION 38 % Normal 25 - 45 [facility] Comment on above: Performed By: #### I RONT #### [facility] [address] [place] [address] Iron [Mass/Vol] 155 ug/dL High 35 - 150 [facility] Comment on above: Performed By: #### I ANALIT #### [facility] [address] [place] [address] TIBC 405 ug/dL Normal 240 - 445 [facility] Comment on above: Performed By: #### I ANALIT #### [facility] [address] [place] [address] CBC AND DIFFERENTIALon 01-04 % AUTOMATED IMMATURE GRAN 0.3 % Normal 0.0 - 0.9 [facility] Comment on above: Result Comment: Radha ture Granulocyte Count (IG) includes promyelocytes, myelocytes and metamyelocytes but does not include bands. Percent differential counts (%) should be interpreted in the context of the absolute cell counts (cells/L). Performed By: #### C BCDF #### [facility] [address] [place] [address] Basophils (Bld) [#/Vol] 0.04 10*3/uL Normal 0.00 - 0.10 [facility] Comment on above: Performed By: #### C BCDF #### [facility] [address] [place] [address] Basophils/100 WBC (Bld) 0.7 % Normal 0.0 - 2.0 [facility] Comment on above: Performed By: #### C BCDF #### [facility] [address] [place] [address] Eosinophils (Bld) [#/Vol] 0.20 10*3/uL Normal 0.00 - 0.70 [facility] Comment on above: Performed By: #### C BCDF #### [facility] [address] [place] [address] Eosinophils/100 WBC (Bld) 3.4 % Normal 0.0 - 6.0 [facility] Comment on above: Performed By: #### C BCDF #### [facility] [address] [place] [address] Erythrocyte distribution width (RBC) [Ratio] 14.6 % High 11.5 - 14.5 [facility] Comment on above: Performed By: #### C BCDF #### [place] [address] [place] [address] Hematocrit (Bld) [Volume fraction] 41.9 % Normal 36.0 - 46.0 [facility] Comment on above: Performed By: #### C BCDF #### [facility] [address] [place] [address] Hemoglobin (Bld) [Mass/Vol] 13.5 g/dL Normal 12.0 - 16.0 [facility] Comment on above: Performed By: #### C BCDF #### [facility] [address] [place] [address] Lymphocytes (Bld) [#/Vol] 1.83 10*3/uL Normal 1.20 - 4.80 [facility] Comment on above: Performed By: #### C BCDF #### [facility] [address] [place] [address] Lymphocytes/100 WBC (Bld) 30.9 % Normal 13.0 - 44.0 [facility] Comment on above: Performed By: #### C BCDF #### [facility] [address] [place] [address] MCHC (RBC) [Mass/Vol] 32.2 g/dL Normal 32.0 - 36.0 [facility] Comment on above: Performed By: #### C BCDF #### [facility] [address] [place] [address] MCV (RBC) [Entitic vol] 88 fL Normal 80 - 100 [facility] Comment on above: Performed By: #### C BCDF #### [facility] [facility] [address] [place] [address] Monocytes (Bld) [#/Vol] 0.32 10*3/uL Normal 0.10 - 1.00 [facility] Comment on above: Performed By: #### C BCDF #### [facility] [address] [place] [address] Monocytes/100 WBC (Bld) 5.4 % Normal 2.0 - 10.0 [facility] Comment on above: Performed By: #### C BCDF #### [facility] [address] [place] [address] Neutrophils (Bld) [#/Vol] 3.51 10*3/uL Normal 1.20 - 7.70 [facility] Comment on above: Performed By: #### C BCDF #### [facility] [address] [place] [address] Neutrophils/100 WBC (Bld) 59.3 % Normal 40.0 - 80.0 [facility] Comment on above: Performed By: #### C BCDF #### [facility] [address] [place] [address] NUCLEATED RBC 0.0 /100 WBC Normal 0.0-0.0 [facility] Comment on above: Performed By: #### C BCDF #### [facility] [address] [place] [address] Platelets (Bld) [#/Vol] 309 10*3/uL Normal 150 - 450 [facility] Comment on above: Performed By: #### C BCDF #### [facility] [address] [place] [address] RBC 4.76 x10E12/L Normal 4.00 - 5.20 [facility] Comment on above: Performed By: #### C BCDF #### [facility] [address] [place] [address] WBC (Bld) [#/Vol] 5.9 10*3/uL Normal 4.4 - 11.3 [facility] Comment on above: Performed By: #### C BCDF #### [facility] [address] [place] [address] Blood Pressure Cuff Sizeon 1 11-09-2020 Last menstrual period start date Nursing [facility] Work Phone: Tobacco use status CPHS b) No [facility] Work Phone: Blood Pressure Cuff Size Adult [facility] Work Phone: Complete Blood Count + Diffe adamon 09-09-2021 Basophils/100 WBC (Bld) 1.0 % 0.0 - 2.0 [facility] Work Phone: Erythrocyte distribution width (RBC) [Ratio] 12.8 % See Below [facility] Work Phone: Comment on above: Reference Range: 11. 5 - 14.5 Hematocrit (Bld) [Volume fraction] 37.8 % See Below [facility] Work Phone: Comment on above: Reference Range: 36. 0 - 46.0 Hemoglobin (Bld) [Mass/Vol] 11.4 g/dL below low threshold See Below [facility] Work Phone: Comment on above: Reference Range: 12. 0 - 16.0 Lymphocytes/100 WBC (Bld) 36.7 % See Below [facility] Work Phone: Comment on above: Reference Range: 13. 0 - 44.0 MCHC (RBC) [Mass/Vol] 30.2 g/dL below low threshold See Below [facility] Work Phone: Comment on above: Reference Range: 32. 0 - 36.0 MCV (RBC) [Entitic vol] 90 fL 80 - 100 [facility] Work Phone: Monocytes/100 WBC (Bld) 9.8 % 2.0 - 10.0 [facility] Work Phone: Neutrophils/100 WBC (Bld) 47.1 % See Below [facility] Work Phone: Comment on above: Reference Range: 40. 0 - 80.0 Platelets (Bld) [#/Vol] 364 10*3/uL 150 - 450 [facility] Work Phone: RBC (Bld) [#/Vol] 4.21 {x10E12/L} See Below [facility] Work Phone: Comment on above: Reference Range: 4.0 0 - 5.20 WBC (Bld) [#/Vol] 5.0 10*3/uL 4.4 - 11.3 [facility] Work Phone: Complete Blood Count + Differential 0.05 {x10E9/L} See Below [facility] Work Phone: Comment on above: Reference Range: 0.0 0 - 0.10 Complete Blood Count + Differential 0.26 {x10E9/L} See Below [facility] Work Phone: Comment on above: Reference Range: 0.0 0 - 0.70 Complete Blood Count + Differential 0.49 {x10E9/L} See Below [facility] Work Phone: Comment on above: Reference Range: 0.1 0 - 1.00 Complete Blood Count + Differential 1.83 {x10E9/L} See Below [facility] Work Phone: Comment on above: Reference Range: 1.2 0 - 4.80 Complete Blood Count + Differential 2.34 {x10E9/L} See Below [facility] Work Phone: Comment on above: Reference Range: 1.2 0 - 7.70 Complete Blood Count + Differential 5.2 % 0.0 - 6.0 [facility] Work Phone: Complete Blood Count + Differential 0.2 % 0.0 - 0.9 [facility] Work Phone: Comment on above: Immature Granulocyte Count (IG) includes promyelocytes, myelocytes and metamyelocytes but does not include bands. Percent differential counts (%) should be interpreted in the context of the absolute cell counts (cells/L). Complete Blood Count + Differential 0.0 {/100_WBC} 0.0-0.0 [facility] Work Phone: Ferritin, Serumon 09-09-2021 Ferritin [Mass/Vol] 15 ug/L 8 - 150 [facility] Work Phone: Folate, Serumon 09-09-2021 Folate [Mass/Vol] 9.6 ng/mL >5.0 [facility] Work Phone: Comment on above: Low <3.4Borderline 3 .4-5.0Normal >5.0. Biotin interference may cause falsely elevated results. Patients taking a Biotin dose of up to 5 mg/day should refrain from taking Biotin for 24 hours before sample collection. Providers may contact their local laboratory for further information. Laboratory - Chemistry and C hemistry - challengeon 09-09-2021 Anion gap [Moles/Vol] 11 mmol/L 10 - 20 [facility] Work Phone: Calcium [Mass/Vol] 9.4 mg/dL 8.6 - 10.6 [facility] Work Phone: Chloride [Moles/Vol] 106 mmol/L 98 - 107 [facility] Work Phone: CO2 [Moles/Vol] 26 mmol/L 21 - 32 [facility] Work Phone: Creatinine [Mass/Vol] 1.18 mg/dL above high threshold See Below [facility] Work Phone: Comment on above: Reference Range: 0.5 0 - 1.05 Glucose [Mass/Vol] 82 mg/dL 74 - 99 [facility] Work Phone: Iron [Mass/Vol] 26 ug/dL below low threshold 35 - 150 [facility] Work Phone: Iron binding capacity [Mass/Vol] 453 ug/dL above high threshold 240 - 445 [facility] Work Phone: Potassium [Moles/Vol] 4.2 mmol/L 3.5 - 5.3 [facility] Work Phone: Sodium [Moles/Vol] 139 mmol/L 136 - 145 [facility] Work Phone: Urea nitrogen [Mass/Vol] 15 mg/dL 6 - 23 [facility] Work Phone: Lipid Panelon 09-09-2021 Cholesterol [Mass/Vol] 277 mg/dL above hig h threshold 0 - 199 [facility] Work Phone: Comment on above: . AGE DESIRABLE BORD MAYTE HIGH HIGH 0-19 Y 0 - 169 170 - 199 >/= 200 20-24 Y 0 - 189 190 - 224 >/= 225 >24 Y 0 - 199 200 - 239 >/= 240 All ranges are based on fasting samples. Specific therapeutic targets will vary based on patient-specific cardiac risk.. Pediatric guidelines reference:Pediatrics 2011, 128(S5). Adult guidelines reference: NCEP ATPIII Guidelines, SALVATORE 2001, 258:2486-97. Venipuncture immediately after or during the administration of Metamizole may lead to falsely low results. Testing should be performed immediately prior to Metamizole dosing. Cholesterol in HDL [Mass/Vol] 74.7 mg/dL [facility] Work Phone: Comment on above: . AGE VERY LOW LOW N ORMAL HIGH 0-19 Y < 35 < 40 40-45 ---- 20-24 Y ---- < 40 >45 ---- >24 Y ---- < 40 40-60 >60. Cholesterol in LDL [Mass/Vol] 177 mg/dL above high threshold 0 - 99 [facility] Work Phone: Comment on above: . NEAR BORD AGE LEONARDO RABLE OPTIMAL HIGH HIGH VERY HIGH 0-19 Y 0 - 109 --- 110-129 >/= 130 ---- 20-24 Y 0 - 119 --- 120-159 >/= 160 ---- >24 Y 0 - 99 100-129 130-159 160-189 >/=190. Cholesterol.total/Chol esterol in HDL [Mass ratio] 3.7 {ratio} [facility] Work Phone: Comment on above: REF VALUESDESIRABLE < 3.4HIGH RISK > 5.0 Triglyceride [Mass/Vol] 126 mg/dL 0 - 149 [facility] Work Phone: Comment on above: . AGE DESIRABLE BORD MAYTE HIGH HIGH VERY HIGH 0 D-90 D 19 - 174 ---- ---- ----91 D- 9 Y 0 - 74 75 - 99 >/= 100 ---- 10-19 Y 0 - 89 90 - 129 >/= 130 ---- 20-24 Y 0 - 114 115 - 149 >/= 150 ---- >24 Y 0 - 149 150 - 199 200- 499 >/= 500. Venipuncture immediately after or during the administration of Metamizole may lead to falsely low results. Testing should be performed immediately prior to Metamizole dosing. Lipid Panel 25 mg/dL 0 - 40 [facility] Work Phone: No Panel Informationon 09-09 64 {mL/min/1.73m2} >60 [facility] Work Phone: Comment on above: CALCULATIONS OF TATA MATED GFR ARE PERFORMED USING THE MDRD STUDY EQUATION FOR THE IDMS-TRACEABLE CREATININE METHODS. CLIN CHEM 2007;53:766-72 53 {mL/min/1.73m2} Abnormal >60 [facility] Work Phone: 6 % below low threshold 25 - 45 [facility] Work Phone: Vitamin B12, Serumon 09-09-2 021 Cobalamin (Vitamin B12) [Mass/Vol] 743 pg/mL 211 - 911 [facility] Work Phone: CBCOrdered By: Tono huertas 08-05-2021 Hematocrit (Bld) [Volume fraction] 30.5 % Low 35.0 - 47.0 % [facility] Work Phone: Hemoglobin.gastrointes tinal spec 1 Ql (Stl) 10.5 g/dL Low 11.7 - 16.0 g/dL [facility] Work Phone: Interpretation and review of laboratory results Abnormal [facility] Work Phone: MCH (RBC) [Entitic mass] 30.3 pg 26.0 - 34.0 pg [facility] Work Phone: MCHC (RBC) [Mass/Vol] 34.5 % 32.0 - 36.0 % [facility] Work Phone: MCV (RBC) [Entitic vol] 87.7 fL 79.0 - 98.0 fL [facility] Work Phone: Platelet distribution width (Bld) [Ratio] 13.2 % 11.5 - 14.5 % [facility] Work Phone: Platelet mean volume (Bld) [Entitic vol] 8.6 fL 7.4 - 10.4 fL [facility] Work Phone: Platelets (Bld) [#/Vol] 336 10*3/uL 140 - 440 10*3/uL [facility] Work Phone: RBC (Bld) [#/Vol] 3.48 10*6/uL Low 3.80 - 5.2 0 10*6/uL [facility] Work Phone: WBC (Bld) [#/Vol] 13.7 10*3/uL High 3.6 - 10.7 10*3/uL [facility] Work Phone: Test Performed by [facility], [address] [place] [address]. [place] [address] [facility] Work Phone: [facility] Work Phone: Hemogramon 08-05-2021 Erythrocyte distribution width (RBC) [Ratio] 13.2 % Normal 11.5-14.5 [facility] Comment on above: Performed By: #### H EMOG #### [facility] [address] [place] [address] Hematocrit (Bld) [Volume fraction] 30.5 % Low 35.0-47.0 [facility] Comment on above: Performed By: #### H EMOG #### [facility] [address] [place] [address] Hemoglobin (Bld) [Mass/Vol] 10.5 g/dL Low 11.7-16.0 [facility] Comment on above: Performed By: #### H EMOG #### [facility] [address] [place] [address] MCH (RBC) [Entitic mass] 30.3 pg Normal 26.0-34.0 [facility] Comment on above: Performed By: #### H EMOG #### [facility] [address] [place] [address] MCHC 34.5 % Normal 32.0-36.0 [facility] Comment on above: Performed By: #### H EMOG #### [facility] [address] [place] [address] MCV (RBC) [Entitic vol] 87.7 fL Normal 79.0-98.0 [facility] Comment on above: Performed By: #### H EMOG #### [facility] [address] [place] [address] Platelet mean volume (Bld) [Entitic vol] 8.6 fL Normal 7.4-10.4 [facility] Comment on above: Performed By: #### H EMOG #### [facility] [address] [place] [address] Platelets (Bld) [#/Vol] 336 10*3/uL Normal 140-440 [facility] Comment on above: Performed By: #### H EMOG #### [facility] [address] [place] [address] RBC (Bld) [#/Vol] 3.48 10*6/uL Low 3.80-5.20 [facility] Comment on above: Performed By: #### H EMOG #### [facility] [address] [place] [address] WBC (Bld) [#/Vol] 13.7 10*3/uL High 3.6-10.7 [facility] Comment on above: Performed By: #### H EMOG #### [facility] [address] [place] [address] TS GELon 08-05-2021 TS GEL ABO Group: O Rh, Gel: POS Antibody Screen Gel: NEG Normal [facility] Comment on above: Performed By: #### T SGL #### [facility] [employer] TYPE AND SCREENOrdered By: Ruth Ann Epstein on 08-05-2021 ABO Grouping O [facility] Work Phone: Rh Type Positive [facility] Work Phone: Test Performed by [facility] [employer] [facility], [address] [place] [address] [facility] Work Phone: [facility] Work Phone: Complete Urinalysison 2020 Appearance (U) Clear Normal Clear [facility] Comment on above: Result Comment: . Performed By: #### F F, CUA2 #### [facility] [address] [place] [address] Bilirubin,Urine Negative Normal Negative [facility] Comment on above: Result Comment: . Performed By: #### F F, CUA2 #### [facility] [address] [place] [address] Color (U) Colorless Normal Lt. Yellow [facility] Comment on above: Result Comment: . Performed By: #### F F, CUA2 #### [facility] [address] [place] [address] Glucose Ql (U) Normal Normal Normal (<70) [facility] Comment on above: Result Comment: . Performed By: #### F F, CUA2 #### [facility] [address] [place] [address] Ketone,Urine Negative Normal Negative [facility] Comment on above: Result Comment: . Performed By: #### F F, CUA2 #### [facility] [address] [place] [address] Leukocytes,Urine Negative Normal Negative [facility] Comment on above: Result Comment: . Performed By: #### F F, CUA2 #### [facility] [address] [place] [address] Nitrites,Urine Negative Normal Negative [facility] Comment on above: Result Comment: . Performed By: #### F F, CUA2 #### [facility] [address] [place] [address] Occult Blood,Urine Negative Normal Negative [facility] Comment on above: Result Comment: . Performed By: #### F F, CUA2 #### [facility] [address] [place] [address] pH,Urine 6.5 Normal 5.0-8.0 [facility] Comment on above: Result Comment: . Performed By: #### F F, CUA2 #### [facility] [address] [place] [address] Specific Zanoni,Urine < 1.005 Abnormal 1.005 - 1.030 [facility] Comment on above: Result Comment: . Performed By: #### F F, CUA2 #### [facility] [address] [place] [address] Total Protein,Urine Negative Normal Negative [facility] Comment on above: Result Comment: . Performed By: #### F F, CUA2 #### [facility] [address] [place] [address] Urobilinogen,Urine Normal Normal Normal (0-1) [facility] Comment on above: Result Comment: . Performed By: #### F F, CUA2 #### [facility] [address] [place] [address] FIBRONECTINOrdered By: Isaiah Parrish on 04-30-2021 Fibronectin Negative Negative [facility] Work Phone: Comment on above: The [place] [employer] (ACOG) recommends that fibronectin testing may be performed in women with symptoms of labor to identify those with negative values and a reduced risk of . Testing should occur between 24-35 weeks of gestation. The test has a high negative predictive value; however, positive predictive value is low. Results should be correlated with clinical symptoms. Test Performed by [employer], [address], [place], [place] [address] [facility] Work Phone: [facility] Work Phone: Fibronectinon 04-30-20 21 Fibronectin Negative Normal Negative [facility] Comment on above: Result Comment: The [place] [employer] (ACOG) recommends that fibronectin testing may be performed in women with symptoms of labor to identify those with negative values and a reduced risk of . Testing should occur between 24-35 weeks of gestation. The test has a high negative predictive value; however, positive predictive value is low. Results should be correlated with clinical symptoms. Performed By: #### F F, CUA2 #### [facility] [address] [place] [address] UrinalysisOrdered By: Kit Parrish on 04-30-2021 Appearance (U) Clear Clear NA [facility] Work Phone: Comment on above: . Bilirubin Urine Negative Negative mg/dL [facility] Work Phone: Comment on above: . Color (U) Colorless Lt. Yellow NA [facility] Work Phone: Comment on above: . Glucose, Ur Normal Normal (<70) mg/dL [facility] Work Phone: Comment on above: . Interpretation and review of laboratory results Abnormal [facility] Work Phone: Ketones Ql (U) Negative Negative mg/dL [facility] Work Phone: Comment on above: . LEUKOCYTES, UA Negative Negative Libby/uL [facility] Work Phone: Comment on above: . Nitrite, Urine Negative Negative NA [facility] Work Phone: Comment on above: . Occult Blood,Urine Negative Negative mg/dL [facility] Work Phone: Comment on above: . pH (U) 6.5 [pH] [facility] Work Phone: Comment on above: . Specific Zanoni, Urine <1.005 Abnormal [facility] Work Phone: Comment on above: . Total Protein, Urine Negative Negativ e mg/dL [facility] Work Phone: Comment on above: . Urobilinogen, Urine Normal Normal ( 0-1) mg/dL [facility] Work Phone: Comment on above: . Test Performed by [employer], [address] [place], [place] [address] [facility] Work Phone: [facility] Work Phone: US Transvaginalon 12-31-2020 US Transvaginal Patient Name: COLLIN ROY Ultrasound ACCESSION EXAM DATE/TIME PROCEDURE ORDERING PROVIDER [id number] 12/31/2020 09:30 EST US MD BRITTANY, LIMA Prince Transvaginal CPT code 53093 Reason For Exam (US Transvaginal) viability Report ULTRASOUND OB, TRANSVAGINAL CLINICAL INDICATION: viability TECHNIQUE: Real-time, transvaginal sonography of the pelvis. Doppler and spectral waveform analysis of the ovaries, if they were visualized. COMPARISON: None for this . FINDINGS: There is a single, live intrauterine . Ultrasound estimated gestational age is 8 weeks 4 days. Ultrasound estimated date of delivery is July, and. heart motion is detected. Possible small subchorionic hemorrhage measuring 1.1 x 0.7 x 0.7 cm. Cervical length 5.5 cm and appears closed. The right ovary measures 3.6 x 2.1 x 2.4 cm and contains probable prominent follicle or functional cyst measuring 1.6 x 1.0 cm. The left ovary measures 2.8 x 1.1 x 2.0 cm and demonstrates subcentimeter paraovarian cyst. Duplex Doppler shows appropriate blood flow in the bilateral ovaries. No adnexal masses or significant free peritoneal fluid. IMPRESSION: 1. Single, live intrauterine . 2. 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 Report Dictated on Workstation: LINETTE Final Dictating Physician: MD LAMAS WENDELL Signed Date and Time: 12/31/2020 2:37 pm Signed by: MD LAMAS WENDELL Transcribed Date and Time: 12/31/2020 2:38 Normal [facility] CBCon 08-01-2019 Erythrocyte distribution width (RBC) [Ratio] 13.1 % 11.5 - 14.5 % [place], [place] Hematocrit (Bld) [Volume fraction] 36.1 % 35 - 47 % [place] Hemoglobin (Bld) [Mass/Vol] 12.4 g/dL 11.7 - 16 g/dL [place] Interpretation and review of laboratory results Abnormal [place] MCH (RBC) [Entitic mass] 31.4 pg 26 - 34 pg [place] MCHC (RBC) [Mass/Vol] 34.4 % 32 - 36 % [place] MCV (RBC) [Entitic vol] 91.4 fL 79 - 98 fL [place] Platelet mean volume (Bld) [Entitic vol] 8.1 fL 7.4 - 10.4 fL [place] Platelets (Bld) [#/Vol] 277 10*3/uL 140 - 440 10*3/uL [place] RBC (Bld) [#/Vol] 3.95 10*6/uL 3.8 - 5.2 10*6/uL [place] WBC (Bld) [#/Vol] 14.5 10*3/uL High 3.6 - 10.7 10*3/uL [place] Test Performed by [facility], [address] [place] [address] [place] TYPE AND SCREENon 08-01-2019 Sodium [Moles/Vol] Negative [place] Comment on above: Test Performed by [facility], [address] [place] [address] Sodium [Moles/Vol] Positive [place] Comment on above: Test Performed by [facility], [address], [place], [place] [address] Sodium [Moles/Vol] O [facility] [employer]- [place] Test Performed by [facility] [employer] [facility], [address], [place], [place] [address] [facility]- [place] ABO, External Resulton 01-23 ABO, External Result O [facility] [place] GBS, External Resulton 01-23 GBS, External Result Negative [facility] [employer]- [place] HIV, External Resulton 01-23 HIV, External Result NONREACTIVE [employer] [employer] [facility]- [place] Hepatitis B, External Result on 01-23-2019 Hep B, External Result NOT DETECTED [facility] [employer] [place], [place] Hepatitis C Antibody, Stock Turner al Resulton 01-23-2019 Hepatitis C Antibody, External Result NOT DETECTED [facility] [employer] RPR, External Labon 01-24-20 19 RPR, External Result NONREACTIVE [facility] [employer] [place] Rh Factor, External Resulton 01-23-2019 Rh Factor, External Result Positive [facility] [place] Rubella Titer, External Resu lton 01-23-2019 Rubella Titer, External Result IMMUNE [facility] [employer] [place], [place] Vital Signs Date Time Vital Sign Value Performing Clinician Facility 01-07-2025 11:13-0400 Body height 152.[address] Lima Gonzalez DO Work Phone: [facility] 01-07-2025 11:13-0400 Body mass index (BMI) [Ratio] 23.5 kg/m2 Dr. Lima Gonzalez DO Work Phone: [facility] 01-07-2025 11:13-0400 Body weight 54.[address] Lima Gonzalez DO Work Phone: [facility] 01-07-2025 11:13-0400 Diastolic blood pressure 81 mm[Hg] Dr. Lima Gonzalez DO Work Phone: [facility] 01-07-2025 11:13-0400 Systolic blood pressure 117 mm[Hg] Dr. Lima Gonzalez DO Work Phone: [facility] 12-17-2024 07:20-0500 Body temperature 98.01 [degF] Lima Colinshivanili PA-C Work Phone: [facility] 12-17-2024 07:20-0500 Diastolic blood pressure 84 mm[Hg] Lima Colinshivanili PA-C Work Phone: [facility] 12-17-2024 07:20-0500 Heart rate 82 /min Lima Colinjake PA-C Work Phone: [facility] 12-17-2024 07:20-0500 SaO2% (BldA) [Mass fraction] 98 % Lima Colinjake PA-C Work Phone: [facility] 12-17-2024 07:20-0500 Systolic blood pressure 127 mm[Hg] Lima Colinshivanili PA-C Work Phone: [facility] 10-30-2024 09:41-0500 Body height 153.7 cm Charlee Dusty DO Work Phone: [facility] 10-30-2024 09:41-0500 Body mass index (BMI) [Ratio] 22.34 kg/m2 Charlee Salcha DO Work Phone: [facility] 10-30-2024 09:41-0500 Body temperature 97.39 [degF] Charlee Salcha DO Work Phone: [facility] 10-30-2024 09:41-0500 Body weight 52.75 kg Charlee Salcha DO Work Phone: [facility] 10-30-2024 09:41-0500 Diastolic blood pressure 68 mm[Hg] Charlee Salcha DO Work Phone: [facility] 10-30-2024 09:41-0500 Heart rate 96 /min Charlee Dusty DO Work Phone: [facility] 10-30-2024 09:41-0500 Respiratory rate 16 /min Charlee Salcha DO Work Phone: [facility] 10-30-2024 09:41-0500 SaO2% (BldA) [Mass fraction] 95 % Charlee Segurahael DO Work Phone: [facility] 10-30-2024 09:41-0500 Systolic blood pressure 109 mm[Hg] Charlee Jaramillol DO Work Phone: [facility] 02-06-2024 08:31-0400 Body height 154.9 cm [facility] 1 [facility] 02-06-2024 08:31-0400 Body mass index (BMI) [Ratio] 24.56 kg/m2 [facility] 1 [facility] 02-06-2024 08:31-0400 Body weight 58.[address] 01-20-2024 11:38-0400 Body mass index (BMI) [Ratio] 24.39 kg/m2 Charlee Jaramillol DO Work Phone: [facility] 01-20-2024 11:38-0400 Body temperature 98.2 [degF] Charlee Jaramillol DO Work Phone: [facility] 01-20-2024 11:38-0400 Body weight 57.61 kg Charlee Jaramillol DO Work Phone: [facility] 01-20-2024 11:38-0400 Diastolic blood pressure 78 mm[Hg] Charlee Segurahael DO Work Phone: [facility] 01-20-2024 11:38-0400 Heart rate 90 /min Charlee Jaramillol DO Work Phone: [facility] 01-20-2024 11:38-0400 SaO2% (BldA) [Mass fraction] 95 % Charlee Segurahael DO Work Phone: [facility] 01-20-2024 11:38-0400 Systolic blood pressure 117 mm[Hg] Charlee Salcha DO Work Phone: [facility] 10-10-2023 10:03-0500 Body height 153.7 cm Charlee Salcha DO Work Phone: [facility] 10-10-2023 10:03-0500 Body mass index (BMI) [Ratio] 26.22 kg/m2 Charlee Salcha DO Work Phone: [facility] 10-10-2023 10:03-0500 Body temperature 97.81 [degF] Charlee Dusty DO Work Phone: [facility] 10-10-2023 10:03-0500 Body weight 61.92 kg Charlee Salcha DO Work Phone: [facility] 10-10-2023 10:03-0500 Diastolic blood pressure 74 mm[Hg] Charlee Dusty DO Work Phone: [facility] 10-10-2023 10:03-0500 Heart rate 78 /min Charlee Dusty DO Work Phone: [facility] 10-10-2023 10:03-0500 Respiratory rate 16 /min Charlee Salcha DO Work Phone: [facility] 10-10-2023 10:03-0500 SaO2% (BldA) [Mass fraction] 98 % Charlee Salcha DO Work Phone: [facility] 10-10-2023 10:03-0500 Systolic blood pressure 115 mm[Hg] Charlee Dusty DO Work Phone: [facility] 09-10-2022 11:14-0500 Body height 153.67 cm Charlee Meyers Salcha Work Phone: [facility] Work Phone: 09-10-2022 11:14-0500 Body mass index (BMI) [Ratio] 26.2 kg/m2 Charlee C Salcha Work Phone: [facility] Work Phone: 09-10-2022 11:14-0500 Body surface area Derived from formula 1.6 m2 Charlee C Dusty Work Phone: [facility] Work Phone: 09-10-2022 11:14-0500 Body temperature 98.2 [degF] Charlee C Salcha Work Phone: [facility] Work Phone: 09-10-2022 11:14-0500 Body weight 61.86 kg Charlee C Dusty Work Phone: [facility] Work Phone: 09-10-2022 11:14-0500 Diastolic blood pressure 75 mm[Hg] Charlee C Salcha Work Phone: [facility] Work Phone: 09-10-2022 11:14-0500 Heart rate 95 /min Charlee C Salcha Work Phone: [facility] Work Phone: 09-10-2022 11:14-0500 Respiratory rate 14 /min Charlee C Salcha Work Phone: [facility] Work Phone: 09-10-2022 11:14-0500 SaO2% (BldA) [Mass fraction] 99 % Charlee C Salcha Work Phone: [facility] Work Phone: 09-10-2022 11:14-0500 Systolic blood pressure 121 mm[Hg] Charlee C Salcha Work Phone: [facility] Work Phone: 09-10-2022 11:14-0500 9 1 Charlee C Dusty Work Phone: [facility] Work Phone: Comment on above: PHQ-9 TS 05-18-2022 14:54-0400 Body temperature 97.11 [degF] Urg Plain Work Phone: [facility] 05-18-2022 14:54-0400 Body weight 58.51 kg Urg Plain Work Phone: [facility] 05-18-2022 14:54-0400 Diastolic blood pressure 72 mm[Hg] Urg Plain Work Phone: [facility] 05-18-2022 14:54-0400 Heart rate 74 /min Urg Plain Work Phone: [facility] 05-18-2022 14:54-0400 Respiratory rate 18 /min Urg Plain Work Phone: [facility] 05-18-2022 14:54-0400 SaO2% (BldA) [Mass fraction] 98 % Urg Plain Work Phone: [facility] 05-18-2022 14:54-0400 Systolic blood pressure 108 mm[Hg] Urg Plain Work Phone: [facility] 04-15-2022 16:19-0400 Body temperature 99.5 [degF] Charlee C Dusty Work Phone: [facility] Work Phone: 04-15-2022 16:19-0400 Diastolic blood pressure 61 mm[Hg] Charlee C Salcha Work Phone: [facility] Work Phone: 04-15-2022 16:19-0400 Heart rate 106 /min Charlee C Salcha Work Phone: [facility] Work Phone: 04-15-2022 16:19-0400 Respiratory rate 14 /min Charlee C Salcha Work Phone: [facility] Work Phone: 04-15-2022 16:19-0400 SaO2% (BldA) [Mass fraction] 98 % Charlee C Dusty Work Phone: [facility] Work Phone: 04-15-2022 16:19-0400 Systolic blood pressure 93 mm[Hg] Charlee C Dusty Work Phone: [facility] Work Phone: 03-16-2022 12:44-0400 Body mass index (BMI) [Ratio] 25.05 kg/m2 Charlee C Salcha Work Phone: [facility] Work Phone: 03-16-2022 12:44-0400 Body surface area Derived from formula 1.57 m2 Charlee C Dusty Work Phone: [facility] Work Phone: 03-16-2022 12:44-0400 Body temperature 98 [degF] Charlee C Dusty Work Phone: [facility] Work Phone: 03-16-2022 12:44-0400 Body weight 59.17 kg Charlee C Salcha Work Phone: [facility] Work Phone: 03-16-2022 12:44-0400 Diastolic blood pressure 65 mm[Hg] Charlee C Dusty Work Phone: [facility] Work Phone: 03-16-2022 12:44-0400 Heart rate 94 /min Charlee C Dusty Work Phone: [facility] Work Phone: 03-16-2022 12:44-0400 Respiratory rate 16 /min Charlee C Dusty Work Phone: [facility] Work Phone: 03-16-2022 12:44-0400 SaO2% (BldA) [Mass fraction] 97 % Charlee C Salcha Work Phone: [facility] Work Phone: 03-16-2022 12:44-0400 Systolic blood pressure 102 mm[Hg] Charlee C Dusty Work Phone: [facility] Work Phone: 09-09-2021 11:40-0500 Body height 153.67 cm Charlee C Dusty Work Phone: [facility] Work Phone: 09-09-2021 11:40-0500 Body mass index (BMI) [Ratio] 24.27 kg/m2 Charlee C Dusty Work Phone: [facility] Work Phone: 09-09-2021 11:40-0500 Body surface area Derived from formula 1.55 m2 Charlee C Dusty Work Phone: [facility] Work Phone: 09-09-2021 11:40-0500 Body temperature 97.8 [degF] Charlee C Salcha Work Phone: [facility] Work Phone: 09-09-2021 11:40-0500 Body weight 57.33 kg Charlee C Dusty Work Phone: [facility] Work Phone: 09-09-2021 11:40-0500 Diastolic blood pressure 67 mm[Hg] Charlee C Dusty Work Phone: [facility] Work Phone: 09-09-2021 11:40-0500 Heart rate 76 /min Charlee C Salcha Work Phone: [facility] Work Phone: 09-09-2021 11:40-0500 Respiratory rate 14 /min Charlee C Dusty Work Phone: [facility] Work Phone: 09-09-2021 11:40-0500 SaO2% (BldA) [Mass fraction] 94 % Charlee Mira Dusty Work Phone: [facility] Work Phone: 09-09-2021 11:40-0500 Systolic blood pressure 99 mm[Hg] Charlee Meyers Dusty Work Phone: [facility] Work Phone: 08-06-2021 09:00-0400 Body temperature 98.1 [degF] Lima Hemphill MD Work Phone: [facility] Work Phone: 08-06-2021 09:00-0400 Diastolic blood pressure 75 mm[Hg] Lima Hemphill MD Work Phone: [facility] Work Phone: 08-06-2021 09:00-0400 Heart rate 85 /min Lima Hemphill MD Work Phone: [facility] Work Phone: 08-06-2021 09:00-0400 Respiratory rate 16 /min Lima Hemphill MD Work Phone: [facility] Work Phone: 08-06-2021 09:00-0400 Systolic blood pressure 125 mm[Hg] Lima Hemphill MD Work Phone: [facility] Work Phone: 08-05-2021 04:42-0400 Body height 152.4 cm Lima Hemphill MD Work Phone: [facility] Work Phone: 08-05-2021 04:42-0400 Body mass index (BMI) [Ratio] 28.32 kg/m2 Lima Hemphill MD Work Phone: [employer] Work Phone: 08-05-2021 04:42-0400 Body weight 65.77 kg Lima Hemphill MD Work Phone: [employer] Work Phone: 04-30-2021 18:24-0400 Body height 152.4 cm Lima Hemphill MD Work Phone: [employer] Work Phone: 04-30-2021 18:24-0400 Body mass index (BMI) [Ratio] 27.34 kg/m2 Lima Hemphill MD Work Phone: [employer] Work Phone: 04-30-2021 18:24-0400 Body weight 63.5 kg Lima Hemphill MD Work Phone: [employer] Work Phone: 08-03-2019 08:04-0400 Body Temperature 97.81 [degF] [facility] [place] [facility] 08:04-0400 BP Diastolic 79 mm[Hg] [facility] [place] 08-03-2019 08:04-0400 BP Systolic 113 mm[Hg] [facility] [employer] [facility] , [place] 08-03-2019 08:04-0400 Pulse (Heart Rate) 83 /min [facility] [place] 08-03-2019 08:04-0400 Respiratory Rate 18 /min [facility] [place] 08-01-2019 22:22-0400 BMI (Body Mass Index) 28.32 kg/m2 Lima [employer] [facility], [place] 08-01-2019 22:22-0400 Body weight 65.77 kg Lima [employer] [facility] , [place] 08-01-2019 22:22-0400 Height 152.4 cm [facility] , [place] Encounters Encounter Date Encounter Type Care Provider Facility Start: 09-03-2025 Encounter for other preprocedural examination Lima Gonzalez [facility] Start: 09-02-2025 End: 09-02-2025 ambulatory Lima Gonzalez Facility:[facility] Start: 01-28-2025 End: 01-28-2025 Subsequent hospital visit by physician Amanda Wagner [employer] Work Phone: [facility] Comment on above: Pre-employment healt h screening examination (Primary Dx) Start: 01-28-2025 End: 01-28-2025 ambulatory [facility] Start: 01-14-2025 End: 01-14-2025 ambulatory [facility] Start: 01-14-2025 End: 01-14-2025 Subsequent hospital visit by physician Amanda Wagner [employer] Work Phone: [facility] Comment on above: Pre-employment healt h screening examination (Primary Dx) Start: 01-07-2025 End: 01-07-[address] Lima Gonzalez DO Work Phone: [facility] Work Phone: Start: 01-07-2025 End: 01-07-[address] Lima Gonzalez DO -Laboratory, Specimen Work Phone: Start: 01-07-2025 End: 01-07-[address] Lima Gonzalez DO -[facility] Work Phone: Start: 01-07-2025 End: 01-07-2025 ambulatory Lima Gonzalez Facility:[facility] Start: 01-07-2025 End: 01-07-2025 ambulatory Lima Gonzalez Facility:[facility] Start: 12-17-2024 End: 12-17-2024 Subsequent hospital visit by physician Xr Chest [facility] Comment on above: Acute bronchitis, un specified organism [J20.9] Start: 12-17-2024 End: 12-17-2024 ambulatory SELF Facility:[facility] Start: 12-17-2024 End: 12-17-2024 Patient encounter procedure Lima Valencia PA-C Work Phone: [facility] Comment on above: Acute bronchitis, un specified organism (Primary Dx) Start: 11-14-2024 ambulatory Jamee Corley Facility:[facility] Start: 11-14-2024 Non-patient / Non-visit Jameero Corley [facility] Work Phone: Start: 11-14-2024 End: 11-14-2024 Subsequent hospital visit by physician Jose G [facility] Comment on above: Abnormal uterine ble eding (AUB) Start: 10-30-2024 End: 10-30-2024 Patient encounter procedure Charlee Montano DO Work Phone: [facility] Work Phone: Start: 10-30-2024 End: 10-30-2024 Periodic preventive med est patient 18-39 yrs Charlee Montano DO Work Phone: [facility] Comment on above: Annual physical exam (Primary Dx); Anxiety and depression; Hyperlipidemia, unspecified hyperlipidemia type; Need for hepatitis C screening test; Migraine without aura and without status migrainosus, not intractable; Migraine without status migrainosus, not intractable, unspecified migraine type; Abnormal uterine bleeding (AUB); Fatigue, unspecified type Start: 02-06-2024 End: 02-07-2024 ambulatory CHARLEE MONTANO [facility] Start: 02-06-2024 End: 02-06-2024 Subsequent hospital visit by physician Zuly Jason60b Mammo 1 [facility] Comment on above: Breast pain, left; Mass of upper outer quadrant of left breast Start: 01-20-2024 End: 01-20-2024 Office outpatient visit 15 minutes Charlee Mnotano DO Work Phone: [facility] Comment on above: Breast pain, left (P rimary Dx); Mass of upper outer quadrant of left breast Start: 10-10-2023 End: 10-10-2023 Patient encounter procedure Charlee Montano DO Work Phone: [facility] Work Phone: Start: 10-10-2023 End: 10-10-2023 Periodic preventive med est patient 18-39 yrs Charlee Montano DO Work Phone: [facility] Comment on above: Annual physical exam (Primary Dx); Anxiety and depression; Migraine without status migrainosus, not intractable, unspecified migraine type; Hyperlipidemia, unspecified hyperlipidemia type; Overweight with body mass index (BMI) of 26 to 26.9 in adult Start: 10-27-2022 AUDIT Charlee Montano Work Phone: [facility] Work Phone: Start: 09-22-2022 Chart Update Charlee Montano Work Phone: [facility] Work Phone: Start: 09-11-2022 Chart Update Charlee Montano Work Phone: [facility] Work Phone: Start: 09-10-2022 Chart Update Charlee Montano Work Phone: [facility] Work Phone: Start: 09-10-2022 ambulatory Charlee Montano Fa cility:[facility] Start: 09-10-2022 Periodic preventive med est patient 18-39 yrs Charlee Montano Work Phone: [facility] Work Phone: Start: 09-10-2022 PHYSICLPAP, Provider : Charlee Montano, Status: Pen, Time: 10:50 AM Charlee Montano Work Phone: [facility] Work Phone: Start: 09-09-2022 AUDIT Charlee Montano Work Phone: [facility] Work Phone: Start: 08-09-2022 End: 08-09-2022 ambulatory [facility] Work Phone: Start: 08-09-2022 End: 08-09-2022 Departed Referred [facility] Start: 05-18-2022 End: 05-18-2022 Subsequent hospital visit by physician Xr [facility] [employer] Work Phone: [facility] [employer] [facility] Comment on above: Foot pain, right [M7 9.671] Start: 05-18-2022 End: 05-18-2022 Patient encounter procedure [facility] Work Phone: [facility] Comment on above: Foot pain, right (Pr imary Dx) Start: 04-17-2022 Chart Update Charlee Montano Work Phone: -[facility] Work Phone: Start: 04-16-2022 Chart Update Charlee Montano Work Phone: -[facility] Work Phone: Start: 04-15-[address] Leo Ye Facilit [id number] Start: 04-15-2022 Patient encounter procedure Charlee Montano Work Phone: -[facility] Work Phone: Start: 03-29-2022 AUDIT Charlee Segurahael Work Phone: -[facility] Work Phone: Start: 03-16-2022 Office outpatient vi sit 15 minutes Charlee Montano Work Phone: [facility] Work Phone: Start: 03-16-2022 ambulatory Charlee Montano Fa cility:[id number] Start: 12-24-2021 AUDIT Charlee C Dusty Work Phone: [facility] Work Phone: Start: 12-10-2021 Telephone encounter Charlee C Salcha Work Phone: [facility] Work Phone: Start: 11-10-2021 AUDIT Charlee C Salcha Work Phone: [facility] Work Phone: Start: 09-25-2021 AUDIT Charlee C Dusty Work Phone: [facility] Work Phone: Start: 09-10-2021 Chart Update Charlee C Dusty Work Phone: [facility] Work Phone: Start: 09-10-2021 Chart Update Charlee C Salcha Work Phone: [facility] Work Phone: Start: 09-10-2021 Chart Update Charlee C Dusty Work Phone: [facility] Work Phone: Start: 09-09-2021 Periodic preventive med est patient 18-39 yrs Charlee Mira Salcha Work Phone: [facility] Work Phone: Start: 08-20-2021 AUDIT Charlee C Salcha Work Phone: [facility] Work Phone: Start: 08-05-2021 End: 08-06-2021 Evaluation and management of inpatient Lima Hemphill MD Work Phone: [facility] Start: 07-14-2021 AUDIT Charlee C Dusty Work Phone: [facility] Work Phone: Start: 04-30-2021 End: 04-30-2021 Subsequent hospital visit by physician Lima Hemphill MD Work Phone: [facility] Start: 03-19-2021 AUDIT Charlee Goddardmichael Work Phone: [facility] Work Phone: Start: 08-01-2019 End: 08-03-2019 Evaluation and management of inpatient Lima Hemphill Work Phone: [facility] Start: 07-28-2019 End: 07-28-2019 Subsequent hospital visit by physician Lima Hemphill Work Phone: [facility] Comment on above: Arrived Manual pelvic examination Vanda Montano Work Phone: [facility] Work Phone: Procedures Date Procedure Procedure Detail Performing Clinician Start: 12-17-2024 Radiologic exam ches t 2 views Lima Valencia PA-C Work Phone: Start: 10-30-2024 Lipid 1996 panel - S shea or Plasma [facility] Start: 02-06-2024 BI US BREAST LIMITED LEFT CHARLEE SEGURAHAEL Start: 02-06-2024 BI MAMMO LEFT DIAGNO STIC TOMOSYNTHESIS CHARLEE SEGURAHAEL Start: 02-06-2024 Us breast uni real t marcell with image limited Charlee Meyers Dusty DO Work Phone: Start: 02-06-2024 Diagnostic mammograp hy computer-aided detcj uni Charlee Meyers Salcha DO Work Phone: Start: 10-10-2023 Lipid 1996 panel - S shea or Plasma Charlee Goddardmichael DO Work Phone: Start: 09-10-2022 Lipid 1996 panel - S hsea or Plasma Charlee Dusty DO Work Phone: Start: 09-10-2022 Microscopic observat ion [Identifier] in Cervix by Cyto stain Charlee Dusty DO Work Phone: Start: 05-18-2022 Radex foot complete minimum 3 views Rachel Shirley DO Work Phone: Start: 05-18-2022 Adult depression scr eening assessment [facility] Work Phone: Start: 08-05-2021 Antibody screen Kandi Hemphill MD Work Phone: Start: 08-05-2021 Blood count complete automated Tono Epstein MD Work Phone: Start: 08-05-2021 Blood typing serologic abo Tono Epstein MD Work Phone: Start: 04-30-2021 Ftl fibronectin cerv icovag secretions semi-ella Isaiah Parrish MD Work Phone: Start: 04-30-2021 Urnls dip stick/tabl et rgnt auto w/o microscopy Isaiah Parrish MD Work Phone: Start: 08-01-2019 Blood count complete automated Howard Traylor Work Phone: Start: 08-01-2019 Blood typing serologic abo Howard Traylor Work Phone: Start: 01-23-2019 [facility] Start: 01-23-2019 GBS, EXTERNAL RESULT Sd storical Provider Start: 01-23-2019 HEPATITIS B, EXTERNA L RESULT Historical Provider Start: 01-23-2019 HEPATITIS C ANTIBODY , EXTERNAL RESULT Historical Provider Start: 01-23-2019 HIV, EXTERNAL RESULT Sd storical Provider Start: 01-23-2019 RH FACTOR, EXTERNAL RESULT Historical Provider Start: 01-23-2019 RPR, [facility] Start: 01-23-2019 RUBELLA TITER, EXTER NAL RESULT Historical Provider Extraction of wisdom tooth K destiney Meyers Dusty Work Phone: Nasal sinus procedure Vanda Meyers Salcha Work Phone: Comment on above: x2; Tonsillectomy Charlee Meyers Ca rmichael Work Phone: Plan of Treatment Date Care Activity Detail Author Start: 2048 RSV patient s and/or patients aged 60+ years (1 - 1-dose 60+ series) RSV patients and/or patients aged 60+ years (1 - 1-dose 60+ series) [facility] Start: 2038 Zoster Vaccines (1 o f 2) Zoster Vaccines (1 of 2) [facility] Start: 05-25-2031 DTaP/Tdap/Td vaccine (3 - Td or Tdap) DTaP/Tdap/Td vaccine (3 - Td or Tdap) [facility] Work Phone: Start: 10-30-2029 Lipid panel Lipid Panel [facility] Start: 05-14-2029 DTaP/Tdap/Td vaccine (2 - Td or Tdap) DTaP/Tdap/Td vaccine (2 - Td or Tdap) [facility] Work Phone: Start: 05-14-2029 DTaP/Tdap/Td vaccine (2 - Td) DTaP/Tdap/Td vaccine (2 - Td) [place], [place] Start: 10-10-2028 Lipid panel Lipid Panel [facility] Start: 09-10-2027 Lipid panel Lipid Panel [facility] Start: 10-31-2025 Yearly Adult Physical Yearly Adult P hysical [facility] Start: 10-30-2025 End: 10-30-2025 Patient encounter procedure 10/30/2025 9:30 AM EST Office Visit [facility] [address] [place] [address] Charlee Montano DO [address] [facility] [place], [place] [id number] [facility] Start: 09-17-2025 ambulatory Ambulatory Facility:[place] Start: 09-10-2025 Diabetes mellitus screening Diabetes Screening [facility] Start: 09-10-2025 Screening for malign ant neoplasm of cervix [facility] Start: 10-30-2024 End: 10-30-2025 25-hydroxyvitamin D3 [Mass/volume] in Serum or Plasma Vitamin D 25-Hydroxy,Total (for eval of Vitamin D levels) Lab Routine Fatigue, unspecified type Expected: 10/30/2024 (Approximate), Expires: 10/30/2025 [facility] Work Phone: Comment on above: Expected: 10/30/2024 (Approximate), Expires: 10/30/2025 Start: 10-30-2024 End: 10-30-2025 CBC W Auto Differential panel - Blood CBC and Auto Differential Lab Routine Annual physical exam Expected: 10/30/2024 (Approximate), Expires: 10/30/2025 [facility] Service Area Work Phone: Comment on above: Expected: 10/30/2024 (Approximate), Expires: 10/30/2025 Start: 10-30-2024 End: 10-30-2025 Comprehensive metabolic 2000 panel - Serum or Plasma Comprehensive Metabolic Panel Lab Routine Annual physical exam Expected: 10/30/2024 (Approximate), Expires: 10/30/2025 [facility] Work Phone: Comment on above: Expected: 10/30/2024 (Approximate), Expires: 10/30/2025 Start: 10-30-2024 End: 10-30-2025 Hepatitis C virus Ab [Presence] in Serum Hepatitis C Antibody Lab Routine Need for hepatitis C screening test Expected: 10/30/2024 (Approximate), Expires: 10/30/2025 [facility] Work Phone: Comment on above: Expected: 10/30/2024 (Approximate), Expires: 10/30/2025 Start: 10-30-2024 End: 10-30-2025 Lipid 1996 panel - Serum or Plasma Lipid Panel Lab Routine Hyperlipidemia, unspecified hyperlipidemia type Expected: 10/30/2024 (Approximate), Expires: 10/30/2025 [facility] Work Phone: Comment on above: Expected: 10/30/2024 (Approximate), Expires: 10/30/2025 Start: 10-30-2024 End: 10-30-2025 TSH with reflex to Free T4 if abnormal TSH with reflex to Free T4 if abnormal Lab Routine Abnormal uterine bleeding (AUB) Expected: 10/30/2024 (Approximate), Expires: 10/30/2025 [facility] Work Phone: Comment on above: Expected: 10/30/2024 (Approximate), Expires: 10/30/2025 Start: 10-30-2024 End: 10-30-2025 US Pelvis transvaginal US pelvis transvaginal Imaging Routine Abnormal uterine bleeding (AUB) Expected: 10/30/2024, Expires: 10/30/2025 [facility] Work Phone: Comment on above: Expected: 10/30/2024 , Expires: 10/30/2025 Start: 10-11-2024 Yearly Adult Physical Yearly Adult P [facility] Start: 06-24-2024 COVID-19 (2023-11 28 season) COVID-19 () [facility] Start: 06-24-2024 COVID-19 Vaccine ( season) COVID-19 Vaccine ( season) [facility] Start: 06-24-2024 Covid-19 Vaccine ( season) Covid-19 Vaccine ( season) [facility] Start: 04-09-2024 End: 04-09-2024 Patient encounter procedure 04/09/2024 10:30 AM EDT Office Visit [facility] [address] [place] [id number] Charlee Montano DO [address] [facility], [address] [place], [place] [address] [facility] Start: 01-20-2024 End: 03-21-2025 DBT Breast - left diagnostic BI mammo left diagnostic tomosynthesis Imaging Routine Breast pain, left Mass of upper outer quadrant of left breast Expected: 01/20/2024, Expires: 03/21/2025 [facility] Work Phone: Comment on above: Expected: 01/20/2024 , Expires: 03/21/2025 Start: 01-20-2024 End: 03-21-2025 US Breast - left BI US breast complete left Imaging Routine Breast pain, left Mass of upper outer quadrant of left breast Expected: 01/20/2024, Expires: 03/21/2025 [facility] Service Area Work Phone: Comment on above: Expected: 01/20/2024 , Expires: 03/21/2025 Start: 10-10-2023 End: 10-10-2024 CBC W Auto Differential panel - Blood CBC and Auto Differential Lab Routine Annual physical exam Expected: 10/10/2023 (Approximate), Expires: 10/10/2024 [facility] Area Work Phone: Comment on above: Expected: 10/10/2023 (Approximate), Expires: 10/10/2024 Start: 10-10-2023 End: 10-10-2024 Comprehensive metabolic 2000 panel - Serum or Plasma Comprehensive Metabolic Panel Lab Routine Annual physical exam Expected: 10/10/2023 (Approximate), Expires: 10/10/2024 [facility] Work Phone: Comment on above: Expected: 10/10/2023 (Approximate), Expires: 10/10/2024 Start: 10-10-2023 End: 10-10-2024 Lipid 1996 panel - Serum or Plasma Lipid Panel Lab Routine Hyperlipidemia, unspecified hyperlipidemia type Expected: 10/10/2023 (Approximate), Expires: 10/10/2024 [facility] Work Phone: Comment on above: Expected: 10/10/2023 (Approximate), Expires: 10/10/2024 Start: 09-10-2023 Diabetes mellitus screening Diabetes Screening [facility] Start: 06-24-2023 COVID-19 Vaccine () COVID-19 Vaccine () [facility] Start: 05-18-2023 Adult depression screening assessment DEPRESSION SCREENING [facility] Start: 09-14-2022 COVID-19 Vaccine (4 - Moderna series) COVID-19 Vaccine (4 - Moderna series) [facility] Start: 06-24-2022 Influenza vaccination INFLUENZA (#1) [facility] Start: 09-09-2021 PHYSICAL, Provider: Charlee Montano, Status: Pen, Time: 11:30 AM PHYSICAL, Provider: Charlee Montano, Status: Pen, Time: 11:30 AM [facility] Work Phone: Start: 06-24-2021 Influenza vaccination Flu vaccine (# 1) [facility] Work Phone: Start: 06-24-2019 Influenza vaccination Flu vaccine (# 1) [place], [place] Start: 2018 HPV TESTING HPV TESTING [facility] Start: 2018 Screening for malign ant neoplasm of cervix [facility] Work Phone: Start: 2010 DTaP/Tdap/Td Vaccine s (1 - Tdap) DTaP/Tdap/Td Vaccines (1 - Tdap) [facility] Start: 2009 Cervical cancer screen Cervical canc er screen [place], [place] Start: 2009 Microscopic observat ion [Identifier] in Cervix by Cyto stain Pap Smear [facility] Start: 2009 PAP TESTING PAP TESTING [facility] Start: 2009 Screening for malign ant neoplasm of cervix [facility] Start: 2007 DTaP/Tdap/Td vaccine (1 - Tdap) DTaP/Tdap/Td vaccine (1 - Tdap) [place], [place] Start: 2007 Hepatitis B (1 of 3 - 19+ 3-dose series) Hepatitis B (1 of 3 - 19+ 3-dose series) [facility] Start: 2007 Hepatitis B Vaccine (1 of 3 - 19+ 3-dose series) Hepatitis B Vaccine (1 of 3 - 19+ 3-dose series) [facility] Start: 2007 Hepatitis B Vaccines (1 of 3 - 19+ 3-dose series) Hepatitis B Vaccines (1 of 3 - 19+ 3-dose series) [facility] Start: 2007 Urine microalbumin profile [facility] Start: 2006 Anxiety Screening Anxiety Screening [facility] Start: 2006 Depression Screening Depression Scre enkristie [facility] Start: 2006 HEPATITIS C SCREENING HEPATITIS C [facility] Start: 2006 Hepatitis C screening Hepatitis C [facility] Start: 2006 HIV SCREENING HIV SCREENING [facility] Start: [address] [facility] Start: 2004 MenB (1 of 2 - MenB 2-Dose Series Bexsero) MenB (1 of 2 - MenB 2-Dose Series Bexsero) [facility] Start: 2003 HIV screen HIV screen [place], [place] Start: 2003 HIV screening HIV screen [facility] Work Phone: Start: 2001 Varicella (1 of 2 - 13+ 2-dose series) Varicella (1 of 2 - 13+ 2-dose series) [facility] Start: 2001 Varicella vaccination Varicell a Vaccines (1 of 2 - 13+ 2-dose series) [facility] Start: 2001 Varicella Vaccine (1 of 2 - 13+ 2-dose series) Varicella Vaccine (1 of 2 - 13+ 2-dose series) [place], [place] Start: 1995 Tetanus Diphtheria a nd Pertussis Vaccines (1 - Tdap) Tetanus Diphtheria and Pertussis Vaccines (1 - Tdap) [facility] Start: 1989 MMR (1 of 1 - Standa rd series) MMR (1 of 1 - Standard series) [facility] Start: 1989 MMR Vaccines (1 of 1 - Standard series) MMR Vaccines (1 of 1 - Standard series) [facility] Start: 1989 Varicella vaccination Varicell a Vaccines (1 of 2 - 2-dose childhood series) [facility] Start: 1989 Varicella vaccine (1 of 2 - 2-dose childhood series) Varicella vaccine (1 of 2 - 2-dose childhood series) [facility] Work Phone: Start: 1988 Hepatitis B Vaccines (1 of 3 - 3-dose series) Hepatitis B Vaccines (1 of 3 - 3-dose series) [facility] Start: 1988 Hepatitis C screening Hepatitis C [facility] Work Phone: Start: 1988 HIV screening HIV Screening [facility] Start: 1988 Yearly Adult Physical Yearly Adult P hysical [facility] Noninvasive ear/puls e oximetry single deter NONINVASV OXYGEN SATUR;SINGLE Procedures Routine Acute bronchitis, unspecified organism Ordered: 12/17/2024 [facility] Work Phone: Comment on above: Ordered: 12/17/2024 Nonrebreather mask oxygen Nonrebreather mask oxygen Respiratory Care Routine As directed - RT (PRN) until discontinued starting 08/05/2021 [facility] Work Phone: Comment on above: As directed - RT (AZ N) until discontinued starting 08/05/2021 End: 01-14-2025 Quantiferon TB Gold [facility] Work Phone: Comment on above: For lab collect this frequency defaults to the next routine lab draw time. Routine times: 0600; 1100; 1400; 1900; 2200 for 1 Occurrences starting 01/14/2025 until 01/14/2025 End: 01-28-2025 Quantiferon TB Gold [facility] Work Phone: Comment on above: For lab collect this frequency defaults to the next routine lab draw time. Routine times: 0600; 1100; 1400; 1900; 2200 for 1 Occurrences starting 01/28/2025 until 01/28/2025 End: 07-28-2019 US OB GREATER THAN 14 WEEKS SINGLE FETUS US OB GREATER THAN 14 WEEKS SINGLE FETUS Imaging Routine Once for 1 Occurrences starting 07/28/2019 until 07/28/2019 [facility] Comment on above: Once for 1 Occurrenc es starting 07/28/2019 until 07/28/2019 US OB GREATER THAN 1 4 WEEKS SINGLE FETUS US OB GREATER THAN 14 WEEKS SINGLE FETUS Imaging Routine 07/28/2019 9:10 AM EDT [facility] AISHWARYA LESTER End: 01-22-2025 US Pelvis transvaginal [facility] Service Area Work Phone: Comment on above: Once for 1 Occurrenc es starting 11/14/2024 until 11/14/2024 Immunizations Immunization Date Immunization Notes Care Provider Ji corazonjeff 08-28-2024 influenza, seasonal, injectable, preservative free Charlee Salcha DO Work Phone: [facility] Work Phone: 08-02-2023 influenza virus vaccine, unspecified formulation Charlee Dusty DO Work Phone: [facility] Work Phone: 08-04-2022 Influenza, injectabl e, Madin Bertha Canine Kidney, preservative free, quadrivalent Charlee C Salcha Work Phone: [facility] Work Phone: 07-20-2022 Moderna COVID-19 Biv al Booster 50 MCG/0.5ML Intramuscular Suspension Charlee C Dusty Work Phone: [facility] 09-07-2021 Moderna COVID-19 Vaccine 100 MCG/0.5ML Intramuscular Suspension Charlee C Dusty Work Phone: [facility] Work Phone: 07-21-2021 influenza virus vaccine, unspecified formulation Charlee C Salcha Work Phone: [facility] Work Phone: Comment on above: Series: 11-17-2020 Moderna COVID-19 Vaccine 100 MCG/0.5ML Intramuscular Suspension Charlee C Salcha Work Phone: [facility] Work Phone: 10-17-2020 Moderna COVID-19 Vaccine 100 MCG/0.5ML Intramuscular Suspension Charlee C Dusty Work Phone: [facility] Work Phone: 07-29-2020 influenza, injectabl e, quadrivalent, preservative free; Translations: [Fluarix Quadrivalent 0.5 ML Intramuscular Suspension Prefilled Syringe] Charlee Montano Work Phone: [facility] Work Phone: Comment on above: Series: 07-29-2020 influenza, seasonal, injectable Charlee Montano DO Work Phone: [facility] Work Phone: 08-02-2019 diphtheria, tetanus toxoids and acellular pertussis vaccine, unspecified formulation [facility] [place] 08-11-2018 influenza virus vaccine, unspecified formulation Urg Plain Work Phone: [facility] NEGATED: Highlighted row has not occurred!08-03-2019 tetanus toxoid, reduced diphtheria toxoid, and acellular pertussis vaccine, adsorbed [facility], [place] Comment on above: Deferred: - already had in office. Payers Date Payer Category Payer Unknown [id number] 2024 Self-pay 2022 Conner Prieto Shie ld Managed [facility] [id number] 2022 Unknown 2019 [employer] [place] BLUE CARD PPO OOS [id number] 2019 Unknown [employer] BLUE CARD PPO OOS [id number] 2019-Present [phone] [address] [place] [address] PPO [id number] 2019 Unknown [id number] 1988 Unknown [id number] [id number] 1988 Unknown [id number] [id number] 1988 Unknown [id number] [id number] 1988 Unknown [id number] [id number] 1988 Unknown [id number] [id number] 1988 Unknown [id number] [id number] 1988 Unknown [id number] [id number] 1988 Unknown [id number] [id number] Unknown [id number] Unknown [id number] [id number] Unknown [id number] [id number] Unknown [id number] [id number] Unknown [id number] [id number] Social History Date Type Detail Facility Tobacco smoking status NHIS Unknown if ever smoked [facility] Start: 1990 Sex Assigned At [facility] [place] Start: 08-02-2019 End: 01-07-2025 Tobacco smoking status NHIS Never smoker [facility] Start: 08-02-2019 End: 05-18-2022 Alcohol intake Not Currently [facility] Start: 05-18-2022 End: 12-17-2024 Occasional alcohol use Occasional alcohol use [facility] Work Phone: Comment on above: 1 daughter; 2 step d trudi; 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[employer]; 2 daughters; 2 step daughters; Start: 04-30-2021 End: 12-17-2024 Tobacco use and exposure Never used [facility] Start: 04-30-2021 End: 08-05-2021 Alcohol intake Ex-drinker (finding) [email or web address] Work Phone: Start: 11-15-2020 [employer] Work Phone: Start: 05-08-2022 End: 10-30-2024 Exposure to SARS-CoV-2 (event) Not sure [facility] Start: 05-18-2022 End: 12-17-2024 Alcohol intake Current drinker of alcohol (finding) [facility] Start: 10-31-2016 History SDOH Alcohol Comment Occasionally [facility] Start: 1990 Sex Assigned At Female U [facility] Start: 10-08-2023 Alcohol Comment Social/Occasional Un [facility] Work Phone: Start: 08-09-2023 Gender identity Identifies as female gender (finding) [facility] Work Phone: Start: 08-09-2023 Sexual orientation Heterosexual (elke watson) [facility] Work Phone: Adult Depression Screening Assessment 0 [facility] Tobacco smoking status NHIS Tobacco smoking consumption unknown [facility] Start: 01-14-2025 Sex Female (finding) [facility] NEGATED: Highlighted rowStart: NINF History of tobacco use Passive smoker [facility] Work Phone: Functional Status Date Assessment Result Facility 09-10-2022 PHQ-9 [id number] Mild (5-9) [facility] Work Phone: 09-09-2021 IO PHQ9 IO PHQ9 3 [facility] Work Phone: Clinical Notes 04-30-2021 to 01-07-2025 Note Date & Type Note Facility 01-07-2025 Note [facility] Pap Smear Specimen Adequacy January 07, 2025 11:59pm Comment . Satisfactory for evaluation. Endocervical and/or squamous metaplasticcells (endocervical component) are present. Comment on above: Satisfactory for tammie luation. Endocervical and/or squamous metaplasticcells (endocervical component) are present. 01-07-2025 Evaluation note Diagnosis Onset Date Resolution Abnormal uterine and vaginal bleeding, unspecified acute January 07, 2025 11:04am [facility] Work Phone: 1(542) 853-984502-24-2025 NoteHNO ID: [id number] Author: LIMA VALENCIA PA-C Service: ? 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 SOB and chest muscle pain x2-3 days.) Cough is worsening over the past 2 weeks. Taking dayquil and nyquil every 4 hours. Coughing to the point of gagging. Not bringing anything up with the cough. Getting more SOB and having muscular chest pain from coughing so much. SOB/dyspnea/wheezing: + SOB, sometimes wheezing Chest discomfort/pain: + chest discomfort from coughing. Fever/chills: denies Sinus sx: denies facial pressure, denies headache, denies ear pain, + rhinorrhea, denies dental pain, + stuffiness/congestion, + post nasal drainage, denies sore throat, denies sneezing Loss of taste or smell: denies Negative COVID x 2 in the past 2 weeks Myalgias: denies Increased fatigue: + Nausea, Vomiting, Diarrhea: denies Medications tried: dayquil/nyquil Hx of pneumonia: as a child Hx of Asthma/COPD: denies Current or former smoker:denies Recent sick contacts: + family members all sick also Contact with any persons confirmed or suspected of having COVID: denies Personal hx of COVID: a year ago : denies : denies HX: PAST MEDICAL HISTORY Diagnosis Date Anxiety Depression PAST SURGICAL HISTORY Procedure Laterality Date SEPTOPLASTY 2006 TONSILLECTOMY HX 2005 Current Outpatient Medications on File Prior to Visit Medication Sig sertraline (ZOLOFT) 100 mg tablet 1 tab(s) rizatriptan (MAXALT) 10 mg tablet TAKE 1 TABLET BY MOUTH AT ONSET OF HEADACHE. MAY REPEAT EVERY 2 HOURS NEEDED. MAXIMUM OF 3 TABLETS IN 24 HOURS magnesium oxide,aspartate,citr (TRIPLE MAGNESIUM COMPLEX) 400 mg magnesium cap Take by mouth. loratadine (CLARITIN) 10 mg tablet Take 10 mg by mouth. Etonogestrel-Ethinyl Estradiol (NUVARING) 0.12-0.015 mg/24 hr vaginal ring Use 1 Each vaginally as directed. Insert vaginally and leave in place for 3 consecutive weeks, then remove for 1 week. No current facility-administered medications on file prior to visit. PHYSICAL EXAM: BP 127/84 Pulse 82 Temp 36.7 ?C (98 ?F) (Oral) LMP 12/15/2024 (Exact Date) SpO2 98% General appearance: alert, cooperative, pleasant, in no acute distress, nontoxic Head: Normocephalic, atraumatic Eyes: conjunctiva/corneas normal, EOMI Ears: R TM - clear with good landmarks, nl light reflex, L TM - clear with good landmarks, nl light reflex Nose: clear rhinorrhea, mucosa erythematous and swollen Oropharynx: moist without lesions, mild erythema, no exudate, teeth in good repair Neck: supple and no adenopathy Heart: regular rate and rhythm, without murmur Lungs: clear to auscultation, without rales or wheeze, good air exchange Skin: warm, dry Assessment/Plan 1. Acute bronchitis, unspecified organism - ICD9: 466.0, ICD10: J20.9 - NONINVASV OXYGEN SATUR;SINGLE - AZITHROMYCIN 250 MG TABLET - ALBUTEROL SULFATE HFA 90 MCG/ACTUATION AEROSOL INHALER - XR CHEST 2V FRONTAL/LAT - Albuterol HFA 2 puffs every 4-6hrs prn cough, SOB or wheezing - Pain relievers (tylenol) for relief of headache, body aches, malaise, muscle and joint pain, ear ache - Tessalon Perles 200mg TID prn cough - Zithromax Zpak - CXR --- if pneumonia will add Augmentin. Patient states Augmentin on allergy list due to GI upset but has had it since and tolerated well. - Rest, increased fluids, frequent hand washing - RTC if symptoms persist, worsen or proceed to ER for symptoms of increased SOB, chest pain, resp distress, high fever, pain with breathing, etc. TEJAS [facility]patrick[facility]02-24-2025 History of Present illness Narrative* Lima Valencia PA-C - 12/17/2024 7:27 AM EST Images from the original note were not included. [facility] [place] Department of General Internal Medicine [facility] Outpatient Visit Date: December 17, 2024 CC: URI (Cough and congestion x2 weeks. 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 SOB and chest muscle pain x2-3 days.) Cough is worsening over the past 2 weeks. Taking dayquil and nyquil every 4 hours. Coughing to the point of gagging. Not bringing anything up with the cough. Getting more SOB and having muscular chest pain from coughing so much. SOB/dyspnea/wheezing: + SOB, sometimes wheezing Chest discomfort/pain: + chest discomfort from coughing. Fever/chills: denies Sinus sx: denies facial pressure, denies headache, denies ear pain, + rhinorrhea, denies dental pain, + stuffiness/congestion, + post nasal drainage, denies sore throat, denies sneezing Loss of taste or smell: denies Negative COVID x 2 in the past 2 weeks Myalgias: denies Increased fatigue: + Nausea, Vomiting, Diarrhea: denies Medications tried: dayquil/nyquil Hx of pneumonia: as a child Hx of Asthma/COPD: denies Current or former smoker:denies Recent sick contacts: + family members all sick also Contact with any persons confirmed or suspected of having COVID: denies Personal hx of COVID: a year ago : denies : denies HX: PAST MEDICAL HISTORY Diagnosis Date Anxiety Depression PAST SURGICAL HISTORY Procedure Laterality Date SEPTOPLASTY 2006 TONSILLECTOMY HX 2005 Current Outpatient Medications on File Prior to Visit Medication Sig sertraline (ZOLOFT) 100 mg tablet 1 tab(s) rizatriptan (MAXALT) 10 mg tablet TAKE 1 TABLET BY MOUTH AT ONSET OF HEADACHE. MAY REPEAT EVERY 2 HOURS NEEDED. MAXIMUM OF 3 TABLETS IN 24 HOURS magnesium oxide,aspartate,citr (TRIPLE MAGNESIUM COMPLEX) 400 mg magnesium cap Take by mouth. loratadine (CLARITIN) 10 mg tablet Take 10 mg by mouth. Etonogestrel-Ethinyl Estradiol (NUVARING) 0.12-0.015 mg/24 hr vaginal ring Use 1 Each vaginally as directed. Insert vaginally and leave in place for 3 consecutive weeks, then remove for 1 week. No current facility-administered medications on file prior to visit. PHYSICAL EXAM: BP 127/84 Pulse 82 Temp 36.7 C (98 F) (Oral) LMP 12/15/2024 (Exact Date) SpO2 98% General appearance: alert, cooperative, pleasant, in no acute distress, nontoxic Head: Normocephalic, atraumatic Eyes: conjunctiva/corneas normal, EOMI Ears: R TM - clear with good landmarks, nl light reflex, L TM - clear with good landmarks, nl lightreflex Nose: clear rhinorrhea, mucosa erythematous and swollen Oropharynx: moist without lesions, mild erythema, no exudate, teeth in good repair Neck: supple and no adenopathy Heart: regular rate and rhythm, without murmur Lungs: clear to auscultation, without rales or wheeze, good air exchange Skin: warm, dry Assessment/Plan 1. Acute bronchitis, unspecified organism - ICD9: 466.0, ICD10: J20.9 - NONINVASV OXYGEN SATUR;SINGLE - AZITHROMYCIN 250 MG TABLET - ALBUTEROL SULFATE HFA 90 MCG/ACTUATION AEROSOL INHALER - XR CHEST 2V FRONTAL/LAT - Albuterol HFA 2 puffs every 4-6hrs prn cough, SOB or wheezing - Pain relievers (tylenol) for relief of headache, body aches, malaise, muscle and joint pain, ear ache - Tessalon Perles 200mg TID prn cough - Zithromax Zpak - CXR --- if pneumonia will add Augmentin. Patient states Augmentin on allergy list due to GI upsetbut has had it since and tolerated well. - Rest, increased fluids, frequent hand washing - RTC if symptoms persist, worsen or proceed to ER for symptoms of increased SOB, chest pain, resp distress, high fever, pain with breathing, etc. Lima Valencia PA-C [facility]25 NoteOutside Reference ProcedureJanuary 2024 10:35amAbnUC [facility]01-07-[facility] Evaluation + Plan note* Assessment & Plan Note - Charlee Montano DO - 10/30/2024 10:01 AM ESTAssociated Problem(s): Migraines Rizatriptan as needed [facility] Work Phone: 1(102) 126-157601-07-2025 Evaluation + Plan note* Assessment & Plan Note - Charlee Montano DO - 10/30/2024 10:01 AM ESTAssociated Problem(s): Anxiety and depression Continue zoloft with hydroxyzine as needed [facility] Work Phone: 1(247) 501-423401-07-2025 Evaluation + Plan note* Assessment & Plan Note - Charlee Montano DO - 10/30/2024 10:01 AM ESTAssociated Problem(s): Hyperlipidemia Diet controlled [facility] Work Phone: 1(192) 951-114501-07-2025 Miscellaneous Notes* Assessment & Plan Note - Charlee Montano DO - 10/30/2024 10:01 AM ESTAssociated Problem(s): Migraines Rizatriptan as needed * Assessment & Plan Note - Charlee Montano DO - 10/30/2024 10:01 AM EST Associated Problem(s): Anxiety and depression Continue zoloft with hydroxyzine as needed * Assessment & Plan Note - Charlee Montano DO - 10/30/2024 10:01 AM EST Associated Problem(s): Hyperlipidemia Diet controlled [facility] Work Phone: 1(625) 731-830401-07-2025 History of Present illness Narrative* Charlee Montano DO - 10/30/2024 9:30 AM EST Subjective Patient ID: Collin Roy is a 34 y.o. female who presents for Annual Exam, Follow-up, Anxiety, and Depression. HPI The patient presents for her annual wellness exam. Last pap/cervical cancer screenin09/10/22 NILM HPV neg LMP/menstrual cycles: monthly, lasts 10 days, moderate bleeding - planning to see 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 for possible ablation. States they have been heavier past 2 years. Tired. Contraception: vasectomy Immunizations: tdap - 08/2020 Diet: Follows a healthy diet Exercise: Gets some exercise - walking mostly Anxiety- on zoloft - working well Previously saw neurology for migraines- Using rizatriptan about once monthly now HPL- LDL 131 Current Outpatient Medications Medication Sig Dispense Refill hydrOXYzine HCL (Atarax) 25 mg tablet TAKE ONE TABLET BY MOUTH EVERY 8 HOURS NEEDED FOR ANXIETY 90 tablet 0 rizatriptan (Maxalt) 10 mg tablet TAKE 1 TABLET BY MOUTH AT ONSET OF HEADACHE. MAY REPEAT EVERY 2 HOURS NEEDED. MAXIMUM OF 3 TABLETS IN 24 HOURS 9 tablet 3 sertraline (Zoloft) 100 mg tablet Take 1 tablet (100 mg) by mouth once daily. 90 tablet 3 No current facility-administered medications for this visit. Review of Systems Constitutional: Positive for fatigue. Negative for chills and fever. HENT: Negative for congestion, ear pain and sore throat. Eyes: Negative for visual disturbance. Respiratory: Negative for cough and shortness of breath. Cardiovascular: Negative for chest pain, palpitations and leg swelling. Gastrointestinal: Negative for abdominal pain, constipation, diarrhea, nausea and vomiting. Genitourinary: Positive for menstrual problem. Musculoskeletal: Negative. Skin: Negative for rash. Neurological: Negative for dizziness, weakness, numbness and headaches. Psychiatric/Behavioral: Negative. Scales reviewed KWASI-7 Total Score: 2 (10/30/24944) Patient Health Questionnaire-9 Score: 3 (10/30/24943) Patient Health Questionnaire-2 Score: 1 (10/30/24943) Objective BP 109/68 (BP Location: Right arm, Patient Position: Sitting, BP Cuff Size: Adult long) Pulse 96 Temp 36.3 C (97.4 F) (Temporal) Resp 16 Ht 1.537 m (5' 0.5) Wt 52.8 kg (116 lb 4.8 oz) LMP 10/22/2024 (Exact Date) SpO2 95% BMI 22.34 kg/m Physical Exam Constitutional: Well developed, well nourished, alert and in no acute distress. Head and Face: Normocephalic, atraumatic. Eyes: Normal external exam. Pupils equally round and reactive to light with normal accommodation and extraocular movements intact. ENT: External inspection of ears normal, tympanic membranes visualized and normal. Nasal mucosa, septum, and turbinates normal. Oral mucosa moist, oropharynx clear. Neck: Supple, no lymphadenopathy or masses. Thyroid not enlarged, no palpable nodules. Cardiovascular: Regular rate and rhythm, normal S1 and S2, no murmurs, gallops, or rubs. Radial pulses normal. No peripheral edema. No carotid bruits. Pulmonary: No respiratory distress, lungs clear to auscultation bilaterally. No wheezes, rhonchi, rales. Abdomen: Soft, nontender, nondistended, normal bowel sounds. No masses palpated. Musculoskeletal: Gait normal. Muscle strength/tone normal of all 4 extremities. Normal range of motion of all extremities. Skin: Warm, well perfused, normal skin turgor and color, no lesions or rashes noted. Neurologic: Cranial nerves II-XII grossly intact. Sensation normal bilaterally. Psychiatric: Mood calm and affect normal. Assessment/Plan Problem List Items Addressed This Visit Anxiety and depression Current Assessment & Plan Continue zoloft with hydroxyzine as needed Relevant Medications sertraline (Zoloft) 100 mg tablet Hyperlipidemia Current Assessment & Plan Diet controlled Relevant Orders Lipid Panel Migraines Current Assessment & Plan Rizatriptan as needed Relevant Medications rizatriptan (Maxalt) 10 mg tablet Other Visit Diagnoses Annual physical exam - Primary Relevant Orders CBC and Auto Differential Comprehensive Metabolic Panel Need for hepatitis C screening test Relevant Orders Hepatitis C Antibody Abnormal uterine bleeding (AUB) Relevant Orders TSH with reflex to Free T4 if abnormal US pelvis transvaginal Fatigue, unspecified type Relevant Orders Vitamin D 25-Hydroxy,Total (for eval of Vitamin D levels) Follow up in 12 months. Charlee Montano DO 10/30/2024 documented in this [facility] Work Phone: [phone] 329-573301-07-2025 Instructions* Patient Instructions* Charlee Montano DO - 10/30/2024 9:30 AM EST Recommendations for women annual wellness exam: Make sure screenings for cervical and breast cancer are up to date if applicable- pap smears age 21-65, discuss mammogram starting at age 40 or sooner if positive family history of breast cancer; colonoscopy at age 45, earlier if positive family history of colon cancer STD screening Follow a healthy diet (Dash diet, Mediterranean diet) Exercise 150 min/wk Maintain healthy weight (BMI < 25) Do not smoke Alcohol in moderation (up to 1 drink/day) Get enough sleep (7-8 hours/night) Take a vitamin with folic acid if possibility of Make sure immunizations are up to date (influenza, Tdap) Premenopausal women need minimum 1,000 mg calcium and 600-800 IU vitamin D daily (combination of diet + supplement) Talk to your physician if you have concerns about depression or anxiety Visit dentist twice yearly Hyperlipidemia- You have high cholesterol. (hyperlipidemia). This increases your risk for cardiovascular disease.(Heart attack/stroke). It is recommended that the patient limit refined carbohydrates such as breads, cereals, alcohol, pasta, pretzels, and sugar- sweetened foods and beverages. Eat lots of vegetables, lean proteins such as eggs, fish, chicken, and fruit. Eat small amounts of healthy fat each day - a handful of walnuts,an avocado, olive oil on your salad, and fatty fishes such as salmon. Exercise should be included as you are able, with a goal of 30 minutes 4-6 days per week Continue any prescribed and advised OTC medications, in addition, as reminder: *For high LDL (>130) use blueberries 1 cup daily *Psyllium capsules or powder 2 times daily, such as UrbanTakeover or Metamucil. *Consider also adding plant stanols and sterols such as Nature Made CholestOff, available over the counter. *For high triglycerides- start fish oil 2,000 - 4,000 mg daily. documented in this [facility] Work Phone: [phone]) 651-838303-29-2024 History of Present illness Narrative* Charlee Montano DO - 01/20/2024 11:30 AM EDT Subjective Patient ID: Collin Roy is a 33 y.o. female who presents for Breast Pain (Pain and lump for about a month no other sx ). HPI Here today for L breast pain x 1 month -- Has felt a small lump as well- left upper outer breast - tender to touch Thinks is between pea and cruz woodson size No skin changes No nipple discharge No prior breast issues Stopped breast feeding in Nov Menses regular, monthly Paternal aunt has hx breast cancer Current Outpatient Medications Medication Sig Dispense Refill hydrOXYzine HCL (Atarax) 25 mg tablet TAKE ONE (1) TABLET BY MOUTH EVERY 8 HOURS IF NEEDED FOR ANXIETY 90 tablet 1 rizatriptan (Maxalt) 10 mg tablet TAKE 1 TABLET BY MOUTH AT ONSET OF HEADACHE. MAY REPEAT EVERY 2 HOURS NEEDED. MAXIMUM OF 3 TABLETS IN 24 HOURS 9 tablet 11 sertraline (Zoloft) 100 mg tablet Take 1 tablet (100 mg) by mouth once daily. 90 tablet 1 No current facility-administered medications for this visit. Review of Systems Skin: Negative for color change and rash. Objective BP 117/78 Pulse 90 Temp 36.8 C (98.2 F) Wt 57.6 kg (127 lb) SpO2 95% BMI 24.39 kg/m Physical Exam Constitutional: Well developed, well nourished, alert and in no acute distress. Breasts: Normal appearance, no skin changes, no nipple discharge. Left breast approximately 2 o'clock position ~ 4 cm from nipple there is firm fibrous breast tissue, small lump palpated but not ableto appreciate borders, area is tender. No axillary lymphadenopathy. No masses right breast. Assessment/Plan Problem List Items Addressed This Visit None Visit Diagnoses Codes Breast pain, left - Primary N64.4 Relevant Orders BI US breast complete left BI mammo left diagnostic tomosynthesis Mass of upper outer quadrant of left breast N63.21 Relevant Orders BI US breast complete left BI mammo left diagnostic tomosynthesis Imaging ordered Will call with results and next steps Charlee Montano DO 01/20/2024 [facility]: [phone] Evaluation + Plan note* Assessment & Plan Note - Charlee Montano DO - 10/10/2023 10:17 AM ESTAssociated Problem(s): Migraines Rizatriptan as needed [facility] Work Phone: [phone] Evaluation + Plan note* Assessment & Plan Note - Charlee Montano DO - 10/10/2023 10:17 AM ESTAssociated Problem(s): Anxiety and depression Continue zoloft with hydroxyzine as needed [facility] Work Phone: [phone] Miscellaneous Notes* Assessment & Plan Note - Charlee Montano DO - 10/10/2023 10:17 AM ESTAssociated Problem(s): Migraines Rizatriptan as needed * Assessment & Plan Note - Charlee Montano DO - 10/10/2023 10:17 AM EST Associated Problem(s): Anxiety and depression Continue zoloft with hydroxyzine as needed [facility]: [phone] History of Present illness Narrative* Charlee Montano DO - 10/10/2023 10:00 AM EST Subjective Patient ID: Collin Roy is a 33 y.o. female who presents for Annual Exam (Already had the flu shot ), Follow-up, Anxiety, Depression, and Hyperlipidemia. HPI The patient presents for her annual wellness exam. Last pap/cervical cancer screenin09/10/22 NILM HPV neg LMP/menstrual cycles: monthly, lasts 10 days, moderate bleeding ; declines contraception Contraception: had vasectomy Immunizations: tdap - 08/2020 Diet: Follows an ok diet Exercise: Gets some exercise Anxiety- on zoloft - working well Previously saw neurology for migraines- stopped her vitamins Using rizatriptan about once monthly now Current Outpatient Medications Medication Sig Dispense Refill hydrOXYzine HCL (Atarax) 25 mg tablet TAKE ONE (1) TABLET BY MOUTH EVERY 8 HOURS IF NEEDED FOR ANXIETY 90 tablet 0 rizatriptan (Maxalt) 10 mg tablet TAKE 1 TABLET BY MOUTH AT ONSET OF HEADACHE. MAY REPEAT EVERY 2 HOURS NEEDED. MAXIMUM OF 3 TABLETS IN 24 HOURS 9 tablet 11 sertraline (Zoloft) 100 mg tablet Take 1 tablet (100 mg) by mouth once daily. 90 tablet 3 No current facility-administered medications for this visit. Review of Systems Constitutional: Negative for chills, fatigue and fever. HENT: Negative for congestion, ear pain and sore throat. Eyes: Negative for visual disturbance. Respiratory: Negative for cough and shortness of breath. Cardiovascular: Negative for chest pain, palpitations and leg swelling. Gastrointestinal: Negative for abdominal pain, constipation, diarrhea, nausea and vomiting. Genitourinary: Negative. Musculoskeletal: Negative. Skin: Negative for rash. Neurological: Negative for dizziness, weakness, numbness and headaches. Psychiatric/Behavioral: Negative. Scales reviewed KWASI-7 Total Score: 7 (10/10/23 1002) Patient Health Questionnaire-9 Score: 10 (10/10/23 1000) Patient Health Questionnaire-2 Score: 1 (10/10/23 1000) Objective BP 115/74 (BP Location: Right arm, Patient Position: Sitting, BP Cuff Size: Adult) Pulse 78 Temp 36.6 C (97.8 F) (Temporal) Resp 16 Ht 1.537 m (5' 0.5) Wt 61.9 kg (136 lb 8 oz) LMP 09/06/2023 (Exact Date) SpO2 98% BMI 26.22 kg/m Physical Exam Constitutional: Well developed, well nourished, alert and in no acute distress. Head and Face: Normocephalic, atraumatic. Eyes: Normal external exam. Pupils equally round and reactive to light with normal accommodation and extraocular movements intact. ENT: External inspection of ears normal, tympanic membranes visualized and normal. Nasal mucosa, septum, and turbinates normal. Oral mucosa moist, oropharynx clear. Neck: Supple, no lymphadenopathy or masses. Thyroid not enlarged, no palpable nodules. Cardiovascular: Regular rate and rhythm, normal S1 and S2, no murmurs, gallops, or rubs. Radial pulses normal. No peripheral edema. No carotid bruits. Pulmonary: No respiratory distress, lungs clear to auscultation bilaterally. No wheezes, rhonchi, rales. Abdomen: Soft, nontender, nondistended, normal bowel sounds. No masses palpated. Musculoskeletal: Gait normal. Muscle strength/tone normal of all 4 extremities. Normal range of motion of all extremities. Skin: Warm, well perfused, normal skin turgor and color, no lesions or rashes noted. Neurologic: Cranial nerves II-XII grossly intact. Sensation normal bilaterally. Psychiatric: Mood calm and affect normal. Assessment/Plan Problem List Items Addressed This Visit ICD-10-CM Anxiety and depression F41.9, F32.A Continue zoloft with hydroxyzine as needed Relevant Medications sertraline (Zoloft) 100 mg tablet hydrOXYzine HCL (Atarax) 25 mg tablet Hyperlipidemia E78.5 Relevant Orders Lipid Panel Migraines G43.909 Rizatriptan as needed Relevant Medications rizatriptan (Maxalt) 10 mg tablet Overweight with body mass index (BMI) of 26 to 26.9 in adult E66.3, Z68.26 Other Visit Diagnoses Codes Annual physical exam - Primary Z00.00 Relevant Orders CBC and Auto Differential Comprehensive Metabolic Panel Follow Up In [facility] - PCP - Established Charlee Montano DO 10/10/2023 documented in this [facility] Work Phone: [phone] Instructions* Patient Instructions* Charlee Montano DO - 10/10/2023 10:00 AM EST Recommendations for women annual wellness exam: Make sure screenings for cervical and breast cancer are up to date if applicable- pap smears age 21-65, discuss mammogram starting at age 40 or sooner if positive family history of breast cancer; colonoscopy at age 45, earlier if positive family history of colon cancer STD screening Follow a healthy diet (Dash diet, Mediterranean diet) Exercise 150 min/wk Maintain healthy weight (BMI < 25) Do not smoke Alcohol in moderation (up to 1 drink/day) Get enough sleep (7-8 hours/night) Take a vitamin with folic acid if possibility of Make sure immunizations are up to date (influenza, Tdap) Premenopausal women need minimum 1,000 mg calcium and 600-800 IU vitamin D daily (combination of diet + supplement) Talk to your physician if you have concerns about depression or anxiety Visit dentist twice yearly Hyperlipidemia- You have high cholesterol. (hyperlipidemia). This increases your risk for cardiovascular disease.(Heart attack/stroke). It is recommended that the patient limit refined carbohydrates such as breads, cereals, alcohol, pasta, pretzels, and sugar- sweetened foods and beverages. Eat lots of vegetables, lean proteins such as eggs, fish, chicken, and fruit. Eat small amounts of healthy fat each day - a handful of walnuts,an avocado, olive oil on your salad, and fatty fishes such as salmon. Exercise should be included as you are able, with a goal of 30 minutes 4-6 days per week Continue any prescribed and advised OTC medications, in addition, as reminder: *For high LDL (>130) use blueberries 1 cup daily *Psyllium capsules or powder 2 times daily, such as UrbanTakeover or Metamucil. *Consider also adding plant stanols and sterols such as Nature Made CholestOff, available over the counter. *For high triglycerides- start fish oil 2,000 - 4,000 mg daily. documented in this [facility] Work Phone: [phone]) [phone] NoteAccession #: [id number] Date of Procedure: 09/10/2022 Pathologist: [facility], Cyt[facility] Date Reported: 09/22/2022 Date Received: 09/10/2022 Submitting Physician: CHARLEE MONTANO D.O. FINAL CYTOLOGICAL INTERPRETATION A. THINPREP PAP CERVICAL: Specimen adequacy: SATISFACTORY FOR EVALUATION. Quality Indicator: Endocervical/transformation zone component is present. Quality Indicator: Partially obscuring inflammation. General Categorization: NEGATIVE FOR INTRAEPITHELIAL LESION OR MALIGNANCY. HIGH RISK HPV TEST RESULT: HPV GENOTYPE 16 NEGATIVE HPV GENOTYPE 18 NEGATIVE HPV GENOTYPE OTHER NEGATIVE Reference Range: Negative QC review performed at [facility], [address] [place] [address] Testing for high-risk (HR) type of human papilloma virus (HPV) is performed by the Ke marla HPV Test. The marla HPV Test is a qualitative polymerase chain reaction that amplifies DNA of HPV16, HPV18 and 12 other high-risk HPV types (31, 33, 35, 39, 45, 51, 52, 56, 58, 59, 66, and 68) associated with cervical cancer and its precursor lesions. A positive result indicates the presence of HPV DNA due to one or more of the 14 genotypes: 16, 18, 31, 33, 35, 39, 45, 51, 52, 56, 58, 59, 66, and 68. Negative results indicate HPV DNA concentrations are undetectable or below the pre-set threshold for detection. False negative results may be associated with unoptimized sampling. A negative HR HPV result does not exclude the possibility of future cytologic HSIL or underlying CIN2-3 or cancer. This test is approved for cervical specimens by the US Food and Drug Administration. Results of this test should be interpreted in conjunction with the patient?s Pap test results. Please refer to ASCCP current guidelines for the use of HPV DNA testing, result interpretation, and patient management. The performance of this test was verified by the [facility] Laboratory at [facility]. The lab is certified under the Clinical Laboratory Amendments of 1988 (CLIA 88) as qualified to perform high complexity clinical laboratory testing. This specimen has been analyzed by the [employer] Imaging System ([employer] an automated imaging and review system, which assists the laboratory in evaluating cells on ThinPrep Pap tests. Following automated imaging, selected solorzano from every slide were reviewed by a safety instruction police officer and/or pathologist. Electronically Signed Out By [facility], Cytology//CRR/NIKKI By the signature on this report, the individual or group listed as making the Final Interpretation/Diagnosis certifies that they have reviewed this case. Diagnostic interpretation performed at [facility] [address] [place] [address] Educational Note: Cervical cytology is a screening procedure primarily for squamous cancers and precursors and has associated false-negative and false-positive results as evidenced by published data. Your patient?s test should be interpreted in this context, together with patient?s history and clinical findings. Regular sampling and follow-up of unexplained clinical signs and symptoms are recommended to minimize false negative results. Clinical History Date of Last Menstrual Period: Other Clinical Conditions: HPV Test for All Interpretations - Include HPV Genotype Clinical Diagnosis History: Screening for cervical cancer - (Z12.4) Source of Specimen A: THINPREP PAP CERVICAL [facility] Department of Pathology [address] [place], [place] [address]Comment on above:Performed By: #### [facility] #### [address] [place], [place] [id number] NoteHNO ID: [id number] Author: Kathie Mascorro LPN Service: ? Author Type: LICENSED NURSE Type: Progress Notes Filed: 05/18/2022 4:21 PM Note Text: POST OP SHOE APPLIED TO RIGHT FOOT. [facility] NoteHNO ID: [id number] Author: Rachel Shirely, Service: ? Author Type: Physician Type: Progress Notes Filed: 05/18/2022 4:05 PM Note Text: Collin Roy is a 32 year old FEMALE who presents with Pain (foot) (RIGHT FOOT PAIN X 3 DAYS NO KNOWN INJURY) HPI PAST MEDICAL HISTORY Diagnosis Date - Anxiety - Depression ACTIVE PROBLEM LIST Acute Sinusitis Current Outpatient Medications Medication Sig Dispense Refill - sertraline (ZOLOFT) 100 mg tablet 1 tab(s) - rizatriptan (MAXALT) 10 mg tablet TAKE 1 TABLET BY MOUTH AT ONSET OF HEADACHE. MAY REPEAT EVERY 2 HOURS NEEDED. MAXIMUM OF 3 TABLETS IN 24 HOURS - magnesium oxide,aspartate,citr (TRIPLE MAGNESIUM COMPLEX) 400 mg magnesium cap Take by mouth. - loratadine (CLARITIN) 10 mg tablet Take 10 mg by mouth. - Etonogestrel-Ethinyl Estradiol (NUVARING) 0.12-0.015 mg/24 hr vaginal ring Use 1 Each vaginally as directed. Insert vaginally and leave in place for 3 consecutive weeks, then remove for 1 week. No current facility-administered medications for this visit. Social History Tobacco Use - Smoking status: Never Smoker - Smokeless tobacco: Never Used Substance Use Topics - Alcohol use: Yes Alcohol/week: 7.5 standard drinks Types: 1 Glasses of Wine (5oz), 1 Martini/Manhattan Drinks per week Comment: Occasionally - Drug use: No Alcohol Use: Approximately 4.5 oz/week [which includes 1 Glasses of Wine (5oz), 1 Martini/Manhattan Drinks per week] (Occasionally) Tobacco Use: Never FAMILY HISTORY Problem Relation Age of Onset - Hypertension Mother - other (Depression) Sister - other (Mental Illness) Sister - Cancer Brother Melanoma en situ - Headache Brother Review of Systems Musculoskeletal: Patient is complaining of pain of the right foot along the fifth metatarsal. She has redness at the proximal and distal end of that metatarsal. No history of wearing new shoes or tight or irregular footwear. The patient does not recall any injury she does not recall any snapping popping cracking or anything that would make her think that her foot was hurt however 3 days ago it started getting increasingly more painful and now it is turning reddish on the side of the fifth metatarsal she is got a no difficulty moving her toes other injury of the foot or problem with the foot. All other systems reviewed and are negative. BP 108/72 Pulse 74 Temp 97.1 Resp 18 Wt 129 lb (58.5kg) SpO2 98% LMP 11/04/2020 Physical Exam Vitals and nursing note reviewed. Constitutional: Appearance: Normal appearance. Musculoskeletal: General: Swelling and tenderness present. Comments: Examination of the right foot pulses are +2/4 capillary refill less than 3 seconds normal motor neurovascular and sensory to the digits she has no tenderness over the Achilles no tenderness over the heel she has some redness noted over the proximal and distal portion of the fifth metatarsal no other redness swelling or deformity is noted she has normal range of motion of the toes and her foot is good and warm pulses again +2/4 examination of that fifth metatarsal shows that she is got some redness on the proximal end and tenderness there tenderness with flexion of that fifth metatarsal and tenderness with pressure on the bottom of the foot along the plantar aspect of the fifth metatarsal. Patient does not have any open wounds on the bottom of the foot. I do not see any punctures. Will go to get an x-ray and evaluate for stress fracture or possible fracture of the fifth metatarsal. Neurological: Mental Status: She is alert. ASSESSMENT/PLAN: 1. Foot pain, right - ICD9: 729.5, ICD10: M79.671 - XR FOOT GENERAL 3V AP/LAT/OBL RIGHT - POST - OP SHOE -Elevate the foot. Ice 20 minutes twice a day. Place a layer between the ice and your skin. Wear the postop shoe as directed. You may use Tylenol as needed for aches or pains. If your foot continues to hurt I strongly suggest you get rechecked in 10 days. It is possible to have a stress fracture that does not show initially. If it would continue to hurt your physician may choose to do further testing. Rachel Vallecillo [facility]07-26-2022 History of Present illness Narrative * Kathie Mascorro LPN - 05/18/2022 4:20 PM EDT POST OP SHOE APPLIED TO RIGHT FOOT. PATIENT TOLERATED WELL * Rachel Shirley DO - 05/18/2022 3:51 PM EDT Collin Roy is a 32 year old FEMALE who presents with Pain (foot) (RIGHT FOOT PAIN X 3 DAYS NO KNOWN INJURY) HPI PAST MEDICAL HISTORY Diagnosis Date Anxiety Depression ACTIVE PROBLEM LIST Acute Sinusitis Current Outpatient Medications Medication Sig Dispense Refill sertraline (ZOLOFT) 100 mg tablet 1 tab(s) rizatriptan (MAXALT) 10 mg tablet TAKE 1 TABLET BY MOUTH AT ONSET OF HEADACHE. MAY REPEAT EVERY 2 HOURS NEEDED. MAXIMUM OF 3 TABLETS IN 24 HOURS magnesium oxide,aspartate,citr (TRIPLE MAGNESIUM COMPLEX) 400 mg magnesium cap Take by mouth. loratadine (CLARITIN) 10 mg tablet Take 10 mg by mouth. Etonogestrel-Ethinyl Estradiol (NUVARING) 0.12-0.015 mg/24 hr vaginal ring Use 1 Each vaginally as directed. Insert vaginally and leave in place for 3 consecutive weeks, then remove for 1 week. No current facility-administered medications for this visit. Social History Tobacco Use Smoking status: Never Smoker Smokeless tobacco: Never Used Substance Use Topics Alcohol use: Yes Alcohol/week: 7.5 standard drinks Types: 1 Glasses of Wine (5oz), 1 Martini/Manhattan Drinks per week Comment: Occasionally Drug use: No Alcohol Use: Approximately 4.5 oz/week [which includes 1 Glasses of Wine (5oz), 1 Martini/ManhattanDrinks per week] (Occasionally) Tobacco Use: Never FAMILY HISTORY Problem Relation Age of Onset Hypertension Mother other (Depression) Sister other (Mental Illness) Sister Cancer Brother Melanoma en situ Headache Brother Review of Systems Musculoskeletal: Patient is complaining of pain of the right foot along the fifth metatarsal. She has redness at theproximal and distal end of that metatarsal. No history of wearing new shoes or tight or irregular footwear. The patient does not recall any injury she does not recall any snapping popping cracking oranything that would make her think that her foot was hurt however 3 days ago it started getting increasingly more painful and now it is turning reddish on the side of the fifth metatarsal she is got a no difficulty moving her toes other injury of the foot or problem with the foot. All other systems reviewed and are negative. BP 108/72 Pulse 74 Temp 97.1 Resp 18 Wt 129 lb (58.5kg) SpO2 98% LMP 11/04/2020 Physical Exam Vitals and nursing note reviewed. Constitutional: Appearance: Normal appearance. Musculoskeletal: General: Swelling and tenderness present. Comments: Examination of the right foot pulses are +2/4 capillary refill less than 3 seconds normalmotor neurovascular and sensory to the digits she has no tenderness over the Achilles no tendernessover the heel she has some redness noted over the proximal and distal portion of the fifth metatarsal no other redness swelling or deformity is noted she has normal range of motion of the toes and her foot is good and warm pulses again +2/4 examination of that fifth metatarsal shows that she is gotsome redness on the proximal end and tenderness there tenderness with flexion of that fifth metatarsal and tenderness with pressure on the bottom of the foot along the plantar aspect of the fifth meta tarsal. Patient does not have any open wounds on the bottom of the foot. I do not see any punctures. Will go to get an x-ray and evaluate for stress fracture or possible fracture of the fifth metatarsal. Neurological: Mental Status: She is alert. ASSESSMENT/PLAN: 1. Foot pain, right - ICD9: 729.5, ICD10: M79.671 - XR FOOT GENERAL 3V AP/LAT/OBL RIGHT - POST - OP SHOE -Elevate the foot. Ice 20 minutes twice a day. Place a layer between the ice and your skin. Wear the postop shoe as directed. You may use Tylenol as needed for aches or pains. If your foot continues to hurt I strongly suggest you get rechecked in 10 days. It is possible to have a stress fracture that does not show initially. If it would continue to hurt your physician may choose to do further testing. Rachel Shirley [facility] Instructions* Patient Instructions* Rachel Shirley DO - 05/18/2022 4:02 PM EDT Foot Sprain You have been diagnosed with a sprain of your foot. A sprain of your foot is an injury to the ligaments in your foot. It IS NOT the same as a sprain ofthe ankle. A sprain is an injury to a ligament, usually a tear or partial tear. Sprains can often be as painful as a fracture. Sprains can be divided into 3 categories by the amount of injury to the ligaments. A first-degree sprain is considered a minor tear whereas a third degree sprain often involves a chipfracture of the bone that to which the ligament is attached. The general care of a sprain includes the use of a medication to reduce pain, the use of a splint to reduce movement and Resting, Icing, Compressing and Elevating the injured area. Remember this as RICE. REST: Limit the use of the injured body part. ICE: By applying ice to the affected area, swelling and pain can be reduced. Place some ice cubes in a re-sealable (Ziploc) bag and add some water. Put a thin washcloth between the bag and your skin.Apply the ice bag to the area for at least 20 minutes. Do this at least 4 times per day. Using the ice for longer times and more frequently is OK. NEVER APPLY ICE DIRECTLY TO THE SKIN. COMPRESS: Compression means to apply pressure around the injured area such as with a splint, cast or an joann bandage. Compression decreases swelling and improves comfort. Compression should be tight enough to relieve swelling but not so tight as to decrease circulation. Increasing pain, numbness, tingling, or change in skin color, are all signs of decreased circulation. ELEVATE: Elevate the injured part. For example, a leg can be elevated by placing the leg on a chairwhile sitting and propped up on pillows while lying down. You have been given an orthopedic cast shoe, also called a hard shoe. This shoe is used to makewalking more comfortable by not letting your foot bend too much while walking. You can use the shoefor comfort. YOU SHOULD SEEK MEDICAL ATTENTION IMMEDIATELY IF ANY OF THE FOLLOWING OCCURS: You experience a severe increase in pain in the affected area. You develop new numbness and tingling in or below the affected area. You develop a cold, pale foot that appears to have a problem with its blood supply. documented in this [facility] Miscellaneous Notes* [facility] - RT Jesús(R) - 05/18/2022 4:00 PM EDT Radiology Service Progress Note PATIENT NAME: Collin Roy DATE OF SERVICE: May 18, 2022 TIME: 4:18 PM PATIENT IDENTITY VERIFICATION COMPLETED USING TWO (2) IDENTIFIERS: Name and Date of confirmedby patient verbally. FALL SCREENING: Has the patient had 2 falls in the last year or 1 fall with injury or currently using an Ambulatory Assistive Device (Walker, Cane, Wheelchair, Crutches, etc.)? No PATIENT GENDER DATA: Female. status: : No status: NO. PATIENT RELEVANT IMPLANT DATA REVIEWED: Not Applicable RADIOLOGY DEPARTMENT: General X-ray: Exam(s) Completed: Lower Extremity X- Ray(s): Foot, Right PERIPHERAL IV DATA: Not applicable SIGNED BY: RT Margie(R) May 18, 2022 4:18 PM documented in this encounter[facility] History of Present illness Narrative* Collin is here for dark urine. * Starting last week she started not to feel right. * Fever started yesterday afternoon at 100.9 * Last night 102.9 * This morning 100.8 * 2 pm it was in the 90s * No medications since 9:45 am this morning * Has been alternating Tylenol and ibuprofen * Symptoms * Body aches * Joint stiffness * Dark urine, * Random bruising * Chills. * Has been pushing a lot of fluids and noticed that she is not urinated a lot * Has a red line on right breast- she is breast feeding at this time. * Tested positives for covid on 03/09/2022 then negative 1o days later * 32 y/o female here today c/o dark urine, body aches, joint stiffness, chills, fatigue, headache andrandom bruising. Onset of symptoms 1 week ago. Dark urine started about 2 weeks ago - describes color as brown. Reports fever starting yesterday afternoon of 100.9. Temp of 102.9 last night, then 100.8 this morning. Denies abnormal stools. She states she is . She states breasts have been sore, and yesterday she noticed red line on the right breast. Treated fever with Tylenol and Advil. * Patient had COVID about 1 month ago. Symptoms had completely resolved. She was then treated with antibiotics for sinus infection which had also subsided. No known exposure to any illness since then. She takes vitamin D, magnesium, and zinc supplements. Medications include Zoloft for mood, and Claritin and Flonase for allergies. [facility] Work Phone: [phone] History of Present illness Narrative* Tested positive for covid19 on 03/08, symptoms started 03/06 * Body aches, sinus pressure, chest congestion, cough * Feels winded/short of breath * Racing heart with little exertion * Headaches, fatigue * Cough both dry and productive, notes chest congestion * Slowly starting to feel better * Taking claritin, flonase, nasal saline * Covid vaccinated and boosted [facility] Work Phone: [phone]) [phone] History of Present illness Narrative* The patient presents for her annual wellness exam. * Last pap/cervical cancer screening: Dr Lima Davey 2017 * LMP/menstrual cycles: none - still nursing 13 month old baby - recently had some spotting and breast tenderness and wants a test today * Contraception: had vasectomy earlier this year but never went for his follow up * Immunizations: tdap - 08/2020 * Diet: Follows a healthy diet * Exercise: Gets regular exercise * Anxiety- on zoloft - working well overall * Having some occasional anxiety, would like to try something else as needed * Previously saw neurology for migraines- taking mag and B2 for prevention with rizatriptan prn [facility] Work Phone: [phone] History of Present illness Narrative* Vladimir Gunderson RN - 08/06/2021 10:14 AM EDT Discharge instructions given to patient and FOB. No questions at this time. Patient comfortable, discharged via wheelchair. * Lima Hemphill MD - 08/06/2021 7:40 AM EDT ROUNDS Post- Day #1 s/p , Body mass index is 28.32 kg/m . Subjective: Patient doing well this am. No complaints. Pain controlled. Ambulating and voiding with no difficulty. Lochia: Normal, no clots Feeding: breast : girl Objective: Vitals: 08/05/21 0445 08/05/21 0500 08/05/21 0810 08/05/212003 BP: (!) 102/59 107/67 (!) 138/90 123/69 Pulse: 78 70 99 89 Resp: 16 16 16 Temp: 98.2 F (36.8 C) 98.1 F (36.7 C) 98.1 F (36.7 C) TempSrc: Oral Oral Oral Weight: Height: Physical Examination: Appears well Uterus: Firm, NT Calves: NT Lab Results Component Value Date WBC 13.7 (H) 08/05/2021 HGB 10.5 (L) 08/05/2021 HCT 30.5 (L) 08/05/2021 MCV 87.7 08/05/2021 PLT 336 08/05/2021 Assessment: 31 y.o. PPD # 1 s/p , Body mass index is 28.32 kg/m . O POS There is no immunization history for the selected administration types on file for this patient. Plan: Continue care D/c home Lima Hemphill MD * Bradford Boyce RN - 08/05/2021 4:16 AM EDT Pt up to bathroom w/ assist. Unable to void @ this time. Pericare taught and completed. Makayla rinse bottle given. Ice pack, dermaplast spray and witch chucky pads to perineum. Returned to bed w/o incident. Ambulation steady and pt tolerated activity well. * Bradford Boyce RN - 08/05/2021 2:[address] Hemphill arrives to bedside. RN x3, patient, FOB, and Dr Hemphill for post delivery huddle: Pt delivered precipitously in family car in parking lot of hospital. Infant was vigorous @ delivery with stimulation and drying. Mom and baby transferred to room 319 via . Mom transferred to labor bed and cord cut by FOB. Dr Epstein @ bedside for evaluation. Placenta delivered spontaneously @ 0232. Dr Epstein aware. No complications other than precipitously delivery noted. documented in this [facility] Work Phone: [phone]) [phone] Hospital course Narrative* Lima Hemphill MD - 08/06/2021 7:45 AM EDT Obstetric Discharge Summary Patient Name: Collin Roy Patient : 1990 Room/Bed: 319/3191 Primary Care Physician: Primitivo Whitaker MD Admit Date: 08/05/2021 2:31 AM Admitting Diagnosis IUP 39+4 weeks OB History 2 Para 2 Term 2 AB Living 1 SAB TAB Ectopic Molar Multiple Live Births 1 Patient Active Problem List Diagnosis Normal labor and delivery (spontaneous vaginal delivery) Term Reasons for Admission on 08/05/2021 2:31 AM Term [Z34.90] No comment available Onset of Labor Intrapartum Procedures Delivery Date: 08/05/21 Delivery Time: 0218 Delivery Method: Vaginal, Spontaneous Spontaneous Vaginal Delivery: See Labor and Delivery Summary Procedures None /Operative Complications Complications: (!) Precipitous delivery [place] Data Information for the patient's : Cheryl Roy [[id number]] female Weight: 7 lb 12.5 oz (3.53 kg) Discharge With Mother Complications: No Discharge Diagnosis Post Discharge Information/Patient Instructions: Collin Roy Home Medication Instructions ANGELES:[id number] Printed on:08/06/21 0745 Medication Information Bacillus Coagulans-Inulin (PROBIOTIC FORMULA PO) jfaeurimis-rofkkhepcvjpd-jgieazmq (FIORICET, ESGIC) 50-325-40 MG per tablet Take 1 tablet by mouth every 4 hours as needed for Headaches fluticasone (FLONASE) 50 MCG/ACT nasal spray by Nasal route loratadine (CLARITIN) 10 MG tablet Take 10 mg by mouth daily Magnesium 400 MG CAPS Take by mouth daily metoclopramide (REGLAN) 10 MG tablet Take 1 tablet by mouth 3 times daily (with meals) metoclopramide (REGLAN) 10 MG tablet 1 tab(s) Vit-Fe Fumarate-FA ( PLUS) 27-1 MG TABS Take by mouth Riboflavin 400 MG TABS rizatriptan (MAXALT) 10 MG tablet 1 tab(s) sertraline (ZOLOFT) 100 MG tablet 1 tab(s) No discharge procedures on file. Activity: activity as tolerated Diet: regular diet Wound Care: none needed Discharge to: Home in stable condition Follow up in 6 weeks Discharge Date: 08/06/2021 iLma Hemphill MD Home care, Follow-up care and control were reviewed. Signs and symptoms of mastitis and Post Depression were reviewed. The patient is to notify her physician if any of these occur. documented in this [facility] Work Phone: [phone] History of Present illness Narrative* Isaiah Parrish MD - 04/30/2021 6:44 PM EDT Images from the original note were not included. Department of Obstetrics and Gynecology Labor and Delivery Triage Note CHIEF COMPLAINT: contractions HISTORY OF PRESENT ILLNESS: The patient is a 31 y.o. 25w5d. OB History 2 Para 1 Term 1 AB Living 1 SAB TAB Ectopic Molar Multiple Live Births 1 Patient presents with a chief complaint as above. Pos DFM/VB/LOF/CTX Estimated Due Date: Estimated Date of Delivery: 08/08/21 PAST MEDICAL HISTORY: Past Medical History: Diagnosis Date Mental disorder 2002 anxiety, depression PAST SURGICAL HISTORY: Past Surgical History: Procedure Laterality Date SINUS SURGERY age 16 & 22 TONSILLECTOMY WISDOM TOOTH EXTRACTION Bilateral SOCIAL HISTORY: reports that she has never smoked. She has never used smokeless tobacco. She reports previous alcohol use. She reports that she does not use drugs. MEDICATIONS: Prior to Admission medications Medication Sig Start Date End Date Taking? Authorizing Provider rizatriptan (MAXALT) 10 MG tablet 1 tab(s) Yes Historical Provider, metoclopramide (REGLAN) 10 MG tablet 1 tab(s) Yes Historical Provider, sertraline (ZOLOFT) 100 MG tablet 1 tab(s) Yes Historical Provider, Vit-Fe Fumarate-FA ( PLUS) 27-1 MG TABS Take by mouth Yes Historical Provider, Bacillus Coagulans-Inulin (PROBIOTIC FORMULA PO) Yes Historical Provider, Riboflavin 400 MG TABS Yes Historical Provider, fluticasone (FLONASE) 50 MCG/ACT nasal spray by Nasal route Yes Historical Provider, Magnesium 400 MG CAPS Take by mouth daily Yes Historical Provider, loratadine (CLARITIN) 10 MG tablet Take 10 mg by mouth daily Yes Historical Provider, bhdatdblrp-nwtqevxeodbmw-ivmktkhx (FIORICET, ESGIC) 50-325-40 MG per tablet Take 1 tablet by mouth every 4 hours as needed for Headaches 01/14/21 Yes Lima Hemphill MD metoclopramide (REGLAN) 10 MG tablet Take 1 tablet by mouth 3 times daily (with meals) 01/14/21 Yes Lima Hemphill MD CARE: Complicated by: none REVIEW OF SYSTEMS: A comprehensive review of systems was negative. APPEARANCE: Pain: no PHYSICAL EXAM: Vital Signs: VS wnl-reviewed/Respirations normal effort Vitals: 04/30/21 1824 Weight: 140 lb (63.5 kg) Height: 5' (1.524 m) Abdomen: soft, NT, ND, no rebound/guarding Uterus: gravid/non-tender LE Edema: trace Speculum Exam: no pooling of fluid seen heart rate: Category I Cervix: Closed vis Contraction frequency: irregular, every 10 minutes Membranes: Intact RESULTS: NST: N/A DVP: BPP: GENERAL LABS: No results found for this or any previous visit (from the past 24 hour(s)). TRIAGE COURSE: Threatened PTL IMPRESSION: Threatened Pre-Term Labor DISCUSSED WITH C PROVIDER: DISPOSITION: get FFN and U/S [facility] Work Phone: [facility] note* Diagnosis Term documented in this encounter [facility] Work Phone: Evaluation note* Diagnosis Foot pain, right- Primary Pain in limb [facility] Diagnosis Foot pain, right Pain in limb [facility] noteNo assessment information availableW[facility] Work Phone: Evaluation note* Diagnosis Annual physical exam- Primary Routine general medical examination at a health care facility Anxiety and depression Migraine without status migrainosus, not intractable, unspecified migraine type Hyperlipidemia, unspecified hyperlipidemia type Overweight with body mass index (BMI) of 26 to 26.9 in adult documented in this encounter [facility] Work Phone: Evaluation note* Diagnosis Breast pain, left- Primary Mass of upper outer quadrant of left breast documented in this encounter [facility] Work Phone: Evaluation note* Diagnosis Breast pain, left Mass of upper outer quadrant of left breast documented in this encounter [facility] Work Phone: Evaluation note* Diagnosis Breast pain, left Mass of upper outer quadrant of left breast documented in this encounter [facility] Work Phone: evaluation note* Diagnosis Annual physical exam- Primary Routine general medical examination at a [facility] Anxiety and depression Migraine without status migrainosus, not intractable, unspecified migraine type Hyperlipidemia, unspecified hyperlipidemia type Overweight with body mass index (BMI) of 26 to 26.9 in adult Annual physical exam- Primary Routine general medical examination at a health care facility Anxiety and depression Hyperlipidemia, unspecified hyperlipidemia type Need for hepatitis C screening test Special screening examination for other specified viral diseases Migraine without aura and without status migrainosus, not intractable Migraine without status migrainosus, not intractable, unspecified migraine type Abnormal uterine bleeding (AUB) Fatigue, unspecified type documented in this encounter [facility] Work Phone: evaluation note* Diagnosis Annual physical exam- Primary Routine general medical examination at a health care facility Anxiety and depression Migraine without status migrainosus, not intractable, unspecified migraine type Hyperlipidemia, unspecified hyperlipidemia type Overweight with body mass index (BMI) of 26 to 26.9 in adult Annual physical exam- Primary Routine general medical examination at a [facility] care facility Anxiety and depression Hyperlipidemia, unspecified hyperlipidemia type Need for hepatitis C screening test Special screening examination for other specified viral diseases Migraine without aura and without status migrainosus, not intractable Migraine without status migrainosus, not intractable, unspecified migraine type Abnormal uterine bleeding (AUB) Fatigue, unspecified type Abnormal uterine bleeding (AUB) documented in this encounter [facility] Work Phone: evaluation note* Diagnosis Acute bronchitis, unspecified organism- Primary Acute bronchitis, unspecified organism [facility]* Diagnosis Acute bronchitis, unspecified organism [facility]* Diagnosis Pre-employment health screening examination- Primary Health examination of defined subpopulation [facility] The patient presents for her annual wellness exam. 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 After Your Delivery (the Period): Your Care Instructions Thank you for allowing us to care of you at [employer]. This time can be one of many emotional ups and downs and many changes in your life. In these first weeks try to take good care of yourself because you will likely feel very tired. It may take 4 to 6 weeks to feel like yourself again, and possibly longer if you had a . FOLLOW-UP: Your follow-up care is a cabrera part of your treatment and safety. Follow-up with your OB providerin 4weeks or as specified by your OB provider. If you had high blood pressure, visit your OB provider within 3-5 days after being home. Most women's blood pressure will return to pre- levels after delivery. However, some patients continueto have problems with their blood pressure, and some even get worse. Very high blood pressure can lead to seizures or stroke which can be life threatening. If ordered by your provider, take your blood pressure at home and call your OB provider if you have a high reading. Your OB provider can write you a prescription for a blood pressure monitor if you do not have one. Be sure to make and go to all appointments, and call your OB provider if you are having problems. It's also a good idea to know your test results and keep a list of the medicines you take. BLEEDING Vaginal bleeding will decrease in amount over the next few weeks. Bleeding may oyster picker and then decrease again around 7-10 days . Use pads instead of tampons for the bloody flow that may last as long as 2 weeks. You will notice that as your activity increases, your flow may increase. Call your provider if you are saturating one maxi pad in an hour & passing large clots for 3 hours or more. ACTIVITY NO SEXUAL activity for 6 weeks or until advised by your OB provider; Nothing in vagina: intercourse, tampons, or douching. Begin to think about your reproductive life plan. Talk to your OB provider about if and when you would like another baby in the future. The recommendation for safe spacing is 18-24 months. Showering is okay; NO tub baths, swimming, or hot tubs. Gradually increase your activity. Resume exercise regimen only after advised by your )OB provider. Avoid lifting anything heavier than ten pounds or a gallon of milk for six weeks. Avoid driving 1 week for vaginal delivery and 2 weeks for section, or longer if you are onprescription pain medicine unless otherwise instructed by your OB provider . Rise slowly from a lying to sitting and then a standing position. Climb stairs carefully. You may feel tired or have a lack of energy. You may continue your vitamin to replenish nutrients post-delivery. Nap when whenever you can to catch up on sleep. EMOTIONS You may feel magana, sad, teary, & overwhelmed for the first 2 weeks ; however, feelings of depression may occur any time within the first year after delivery. Contact your OBprovider if you feel you may be showing signs of depression, or have thoughts of harmingyourself or or anyone.. WOUND CARE For Vaginal Delivery: Shower daily, and cleanse your perineum (bottom) with mild soap from front to back. Use the plasticsquirt bottle until bleeding stops each time you use the restroom instead of wiping with toilet paper. Ease soreness of hemorrhoids and the area between your vagina and rectum with ice compresses or witch chucky pads. If used, stitches will dissolve in 4-6 weeks on their own. You may use a sitz bath or soak in a clean tub with drain open and water running for comfort. Kegel exercises will help restore bladder control. To do these tighten your muscles as if you were stopping your urine flow. Hold for a few seconds and then relax. Do these throughout the day. For Section Delivery: Keep your incision clean and dry. If you had steri-strips you may remove these once they start falling off. If you have kermit they need to be removed 3-10 daysafter delivery. If you have steri-strips, remove after 7 - 10 days. Do not wear clothing that irritates the incision line. If your incision is in a crease that is not dry, use a hair-dryer to dry the area 3 times a day. If you develop fever, shaking chills, redness, swelling, drainage or discharge from your wound, or if your wound looks like it is coming apart call your provider immediately. BREAST CARE If you develop a warm, red, tender area on your breast or develop a fever contact your OB provider.If your breasts become engorged ask your provider because treatment can vary according to your needs. DIET & CONSTIPATION Eat a well-balanced diet focusing on foods high in fiber and protein such as: whole grain cereals and breads, fruits and vegetables and legumes (eg, beans, lentils) Drink 8-10 glasses of fluids daily, especially water. Limit caffeine. To avoid constipation you may take a mild yqcf-wqx-ujmugly stool softener (such as colace) as recommended by your OB provider. SWELLING Try to keep your legs elevated when you are sitting or lying down. Stay hydrated and take walks. If you had high blood pressure, weigh yourself at the same time each day. Write down your weight and take the record to your OB provider appointment. MEDICATIONS Take all medications prescribed for you exactly as ordered. Don't take any drugs not prescribed to you or over the counter medicines unless recommended by yourprovider. Don't smoke. WHEN TO CALL THE OB PROVIDER Signs of infection, including fever and chills Increased bleeding: soaking more than one pad an hour or passing clots the size of an egg or larger. Wounds that become red, swollen or drain pus Vaginal discharge that smells foul New pain, swelling, or tenderness in your legs Pain that you can't control with the medications you've been given Pain, burning, urgency or frequency of urination, or persistent bleeding in the urine Cough, shortness of breath, or serious difficulty catching your breath Chest pain or pain in the upper right area of your belly Headache (very painful) or vision changes like blurry or double vision, seeing spots or 'auras' Swelling that is worse or weight gain of more than 3 pounds in 3 days Depression, suicidal thoughts, or feelings of harming someone else Breasts that are hot, red and accompanied by fever Any cracking or bleeding from the nipple or areola (the dark-colored area of the breast) You may have been given a magnet like this: If so, we encourage you to use it on your refrigerator as a reminder of when to call your OB provider. IIn case of an emergency, call 911 immediately. If you are Covid-19 positive or a Person Under Investigation (PUI) These could be signs that your COVID-19 symptoms are worsening and you may need emergency care: You are severely dizzy or lightheaded. You are confused or can't think clearly. Your face and lips have a blue color. You are unable to respond to others or are very hard to wake up. Prevention steps for People with confirmed or suspected COVID-19 (including persons under investigation) who do not need to be hospitalized and People with confirmed COVID-19 who were hospitalized and determined to be medically stable to go home Your healthcare provider and public health staff will evaluate whe ther you can be cared for at home. If it is determined that you do not need to be hospitalized and can be isolated at home, you willbe monitored by staff from your local or state health department. You should follow the prevention steps below until a healthcare provider or local or state health department says you can return to your normal activities. Stay home except to get medical care People who are mildly ill with COVID-19 are able to isolate at home during their illness. You should restrict activities outside your home, except for getting medical care. Do not go to work, school,or public areas. Avoid using public transportation, ride-sharing, or taxis. Separate yourself from other people and animals in your home People: As much as possible, you should stay in a specific room and away from other people in your home. Also, you should use a separate bathroom, if available. Animals: You should restrict contact with pets and other animals while you are sick with COVID-19, just like you would around other people. Although there have not been reports of pets or other animals becoming sick with COVID-19, it is still recommended that people sick with COVID-19 limit contactwith animals until more information is known about the virus. When possible, have another member ofyour household care for your animals while you are sick. If you are sick with COVID-19, avoid contact with your pet, including petting, snuggling, being kissed or licked, and sharing food. If you must care for your pet or be around animals while you are sick, wash your hands before and after you interact with pets and wear a facemask. Call ahead before visiting your provider If you have a medical appointment, call the healthcare provider and tell them that you have or may have COVID-19. This will help the healthcare provider's office take steps to keep other people from getting infected or exposed. Wear a facemask You should wear a facemask when you are around other people (e.g., sharing a room or vehicle) or pets and before you enter a healthcare provider's office. If you are not able to wear a facemask (for example, because it causes trouble breathing), then people who live with you should not stay in the same room with you, or they should wear a facemask if they enter your room. Cover your coughs and sneezes Cover your mouth and nose with a tissue when you cough or sneeze. Throw used tissues in a lined trash can. Immediately wash your hands with soap and water for at least 20 seconds or, if soap and water are not available, clean your hands with an alcohol-based hand nursing program chair that contains at least 60% alcohol. Clean your hands often Wash your hands often with soap and water for at least 20 seconds, especially after blowing your nose, coughing, or sneezing; going to the bathroom; and before eating or preparing food. If soap and water are not readily available, use an alcohol-based hand nursing program chair with at least 60% alcohol, covering all surfaces of your hands and rubbing them together until they feel dry. Soap and water are the best option if hands are visibly dirty. Avoid touching your eyes, nose, and mouth with unwashed hands. Avoid sharing personal household items You should not share dishes, drinking glasses, cups, eating utensils, towels, or bedding with otherpeople or pets in your home. After using these items, they should be washed thoroughly with soap and water. Clean all high-touch surfaces everyday High touch surfaces include counters, tabletops, doorknobs, bathroom fixtures, toilets, phones, keyboards, tablets, and bedside tables. Also, clean any surfaces that may have blood, stool, or body fluids on them. Use a household cleaning spray or wipe, according to the label instructions. Labels contain instructions for safe and effective use of the cleaning product including precautions you should take when applying the product, such as wearing gloves and making sure you have good ventilation during use of the product. Monitor your symptoms Seek prompt medical attention if your illness is worsening (e.g., difficulty breathing). Before seeking care, call your healthcare provider and tell them that you have, or are being evaluated for, COVID-19. Put on a facemask before you enter the facility. These steps will help the healthcare provider's office to keep other people in the office or waiting room from getting infected or exposed. Askyour healthcare provider to call the local or [facility] health department. Persons who are placed underactive monitoring or facilitated self- monitoring should follow instructions provided by their localhealth department or occupational health professionals, as appropriate. When working with your local health department check their available hours. If you have a medical emergency and need to call 911, notify the dispatch personnel that you have, or are being evaluated for COVID-19. If possible, put on a facemask before emergency medical services arrive. Discontinuing home isolation Patients with confirmed COVID-19 should remain under home isolation precautions until the risk of secondary transmission to others is thought to be low. The decision to discontinue home isolation precautions should be made on a picq-xn-cnae basis, in consultation with healthcare providers and [facility] local [facility]. Information on COVID-19 for all patients Call your provider before your next appointment if you develop any of the following symptoms: fever, cough, fatigue, anorexia, shortness of breath, sputum production, and muscle pains. Headache, confusion, rhinorrhea, sore throat, hemoptysis, vomiting, and diarrhea have been reported but are less common. Some persons with COVID-19 have experienced gastrointestinal symptoms such as diarrhea and nausea prior to developing fever and lower respiratory tract signs and symptoms. Ways to [place] with Anxiety & Stress It is normal to feel anxious or worried about COVID-19. You might feel sad about canceling celebrations and staying away from family and friends. Keep in mind that most people do not get severely ill from COVID-19. It is important to have a planin case you get sick to prevent spreading the disease to others including an Advanced Care Plan (communicating and documenting your desired health care plan with family and healthcare team). You can take care of yourself by: ? Taking a break from watching the news ? Take deep breaths, stretch or meditate ? Getting exercise, eating healthy foods, and drinking plenty of water ? Finding activities you can enjoy inside your home ? Staying in touch with your family and friends. Tell your partner, family, and friends how you arefeeling. Advance Care Planning People with COVID-19 may have no symptoms, mild symptoms, such as fever, cough, and shortness of breath or they may have more severe illness, developing severe and fatal pneumonia. As a result, Advance Care Planning with attention to naming a health care decision maker (someone you trust to make healthcare decisions for you if you could not speak for yourself) and sharing other health care preferences is important BEFORE a possible health crisis. Please contact your Primary Care Provider to discuss Advance Care Planning. Learning About Coronavirus (COVID-19) Coronavirus (COVID-19): Overview What is coronavirus (COVID-19)? The coronavirus disease (COVID-19) is caused by a virus. It is an illness that was first found in [facility], in September 2019. It has since spread worldwide. The virus can cause fever, cough, and trouble breathing. In severe cases, it can cause pneumonia and make it hard to breathe without help. It can cause . Coronaviruses are a large group of viruses. They cause the common cold. They also cause more serious illnesses like [place] East respiratory syndrome (MERS) and severe acute respiratory syndrome (SARS). COVID-19 is caused by a novel coronavirus. That means it's a new type that has not been seen in people before. This virus spreads txrpej-is-buczxp through droplets from coughing and sneezing. It can also spreadwhen you are close to someone who is infected. It is always good practice to clean high touch surfaces frequently and avoid touching your mouth, nose and eyes until you have washed your hands if you touched these areas. What can you do to protect yourself from coronavirus (COVID-19)? The best way to protect yourself from getting sick is to: Wear a face mask. Avoid areas where there is an outbreak. Avoid contact with people who may be infected. Wash your hands often with soap or alcohol-based hand sanitizers. Avoid crowds and try to stay at least 6 feet away from other people. Wash your hands often, especially after you cough or sneeze. Use soap and water, and scrub for at least 20 seconds. If soap and water aren't available, use an alcohol-based hand nursing program chair. Call 911 anytime you think you may need emergency care. For example, call if: You have severe trouble breathing. (You can't talk at all.) You have constant chest pain or pressure. You are severely dizzy or lightheaded. You are confused or can't think clearly. Your face and lips have a blue color. You pass out (lose consciousness) or are very hard to wake up. Call your OB Provider now if you develop symptoms such as: Shortness of breath. Fever. Cough. If you need to get care, call ahead to the provider's office for instructions before you go. Make sure you wear a face mask, to prevent exposing other people to the virus. Where can you get the latest information? The following health organizations are tracking and studying this virus. Their websites contain themost up-to-date information. You'll also learn what to do if you think you may have been exposed tothe virus. U.S. Centers for Disease Control and Prevention (CDC): The CDC provides updated news about the disease and travel advice. The website also tells you how to prevent the spread of infection. www.cdc.gov World Health Organization (WHO): WHO offers information about the virus outbreaks. WHO also has travel advice. www.who.int Current as of: January 23, 2020 Content Version: 12. [employer]. Care instructions adapted under license by your healthcare professional. If you have questions about a medical condition or this instruction, always ask your healthcare professional. [employer] disclaims any warranty or liability for your use of this information. General Recommendations for Routine Cleaning and Disinfection of Households Community members can practice routine cleaning of frequently touched surfaces (for example: tables, doorknobs, light switches, handles, desks, toilets, faucets, sinks) with household electrotype servicer and EPA-registered disinfectants that are appropriate for the surface, following label instructions. Labels contain instructions for safe and effective use of the cleaning product including precautions you should take when applying the product, such as wearing gloves and making sure you have good ventilation during use of the product. These guidelines are focused on household settings and are meant for the general public. Cleaning refers to the removal of germs, dirt, and impurities from surfaces. Cleaning does not killgerms, but by removing them, it lowers their numbers and the risk of spreading infection. Disinfecting refers to using chemicals to kill germs on surfaces. This process does not necessarilyclean dirty surfaces or remove germs, but by killing germs on a surface after cleaning, it can further lower the risk of spreading infection. General Recommendations for Cleaning and Disinfection of Households with People Isolated in Home Care - Confirmed or suspected COVID 19 Household members should educate themselves about COVID-19 symptoms and preventing the spread of COVID-19 in homes. Clean and disinfect high-touch surfaces daily in household common areas (e.g. tables, hard-backed chairs, doorknobs, light switches, remotes, handles, desks, toilets, sinks) o In the bedroom/bathroom dedicated for an ill person: consider reducing cleaning frequency to as-needed (e.g., soiled items and surfaces) to avoid unnecessary contact with the ill person. - As much as possible, an ill person should stay in a specific room and away from other people in their home. - The caregiver can provide personal cleaning supplies for an ill person's room and bathroom, unless the room is occupied by child or another person for whom such supplies would not be appropriate. These supplies include tissues, paper towels, electrotype servicer and EPA-registered disinfectants (see list link at [facility] website). - If a separate bathroom is not available, the bathroom should be cleaned and disinfected after each use by an ill person. If this is not possible, the caregiver should wait as long as practical after use by an ill person to clean and disinfect the high-touch surfaces. How to clean and disinfect: Hard Surfaces Wear disposable gloves when cleaning and disinfecting surfaces. Gloves should be discarded after each cleaning. If reusable gloves are used, those gloves should be dedicated for cleaning and disinfection of surfaces for COVID-19 and should not be used for other purposes. Consult the budget counselor's instructions for cleaning and disinfection products used. Clean hands immediately after gloves are removed. If surfaces are dirty, they should be cleaned using a detergent or soap and water prior to disinfection. For disinfection, diluted household bleach solutions, alcohol solutions with at least 70% alcohol, and most common EPA-registered household disinfectants should be effective. o Diluted household bleach solutions can be used if appropriate for the surface. Follow budget counselor's instructions for application and proper ventilation. Check to ensure the product is not past itsexpiration date. Never mix household bleach with ammonia or any other cleanser. Unexpired householdbleach will be effective against coronaviruses when properly diluted. - Prepare a bleach solution by mixing: - 5 tablespoons (1/3rd cup) bleach per gallon of water or - 4 teaspoons bleach per quart of water o Products with EPA-approved emerging viral pathogens [facility] are expected to be effective against COVID-19 based on data for harder to kill viruses. Follow the budget counselor's instructions for all cleaning and disinfection products (e.g., concentration, application method and contact time, etc.). Soft (porous) surfaces such as carpeted floor, rugs, and drapes Remove visible contamination if present and clean with appropriate electrotype servicer indicated for use on these surfaces. After cleaning: Launder items as appropriate in accordance with the budget counselor's instructions. If possible, launder items using the warmest appropriate water setting for the items and dry items completely, or Clothing, towels, linens and other items that go in the laundry Wear disposable gloves when handling dirty laundry from an ill person and then discard after each use. If using reusable gloves, those gloves should be dedicated for cleaning and disinfection of surfaces for COVID-19 and should not be used for other household purposes. Clean hands immediately aftergloves are removed. o If no gloves are used when handling dirty laundry, be sure to wash hands afterwards. o If possible, do not shake dirty laundry. This will minimize the possibility of dispersing virus through the air. o Launder items as appropriate in accordance with the budget counselor's instructions. If possible, launder items using the warmest appropriate water setting for the items and dry items completely. Dirtylaundry from an ill person can be washed with other people's items. o Clean and disinfect clothes hampers according to guidance above for surfaces. If possible, consider placing a garbage pick up man that is either disposable (can be thrown away) or can be laundered. CDC has a list of EPA approved cleaning products on their website - https://www.cdc.gov/coronavirus/ 2019-ncov/community/home/cleaning-disinfection.html https://www.[employer]/Sqoax-Dqcmtwkryou-Ywxzrmwt-Products-List.pdf [employer] Stores with delivery and oyster picker services: [employer]: Free oyster picker at locations Delivery is $12.95 a month Website - [employer]: Brain Surgeon $2.95 (1st order is free) Delivery is $14.95 Website [employer]: roll up guider operator is free Delivery is $5.95 Website [employer]: roll up guider operator is $4.95 Delivery is $9.95 [employer]: roll up guider operator is $4.95 Delivery is $9.95 [employer] Market: Can be ordered for delivery and oyster picker with [employer] Website - [employer]: Free deliver for first 3 orders of $35 or more Website [employer] Mobile Will deliver from [employer], [employer], [employer], and [employer]. Annual membership is $99 Monthly membership is $14 documented in this [facility] Work Phone: [facility] for referral (narrative)* Diagnostic Procedure Only (Routine) - Closed Specialty Diagnoses / Procedures Referred By Contac t Referred To Contact XR IMAGING Diagnoses Foot pain, right Procedures XR FOOT GENERAL 3V AP/LAT/OBL RIGHT RADEX FOOT COMPLETE MINIMUM 3 VIEWS Rachel Shirley DO [address] [facility] [address] [place] [address] Xr Imaging Referral ID Status Reason Start Date Expiration Date V isits Requested Visits Authorized [id number] Closed Auto-Generate d Referral 05/18/2022 06/17/2023 1 1 [facility] for referral (narrative)* Diagnostic Procedure Only (Routine) - Closed Specialty Diagnoses / Procedures Referred By Contac t Referred To Contact XR IMAGING Diagnoses Foot pain, right Procedures XR FOOT GENERAL 3V AP/LAT/OBL RIGHT RADEX FOOT COMPLETE MINIMUM 3 VIEWS Rachel Shirley DO [address] [facility] [address] [place] [address] Xr Imaging Referral ID Status Reason Start Date Expiration Date V isits Requested Visits Authorized [id number] Closed Auto-Generate d Referral 05/18/2022 06/17/2023 1 1 [facility] for referral (narrative)* Consultation (Routine) - Authorized Specialty Diagnoses / Procedures Referred By Contac t Referred To Contact Primary Care Diagnoses Annual physical exam Procedures Follow Up In Advanced Primary Care - PCP - Established Charlee Montano DO [address] [facility] [place] [address] Referral ID Status Reason Start Date Expiration Date V isits Requested Visits Authorized [id number] Authorized 10/10/2023 10/09/2024 1 1 [facility] Work Phone: Reason for referral (narrative)No reason for referral information [facility] Work Phone: Reason for visit Narrative* Diagnostic Procedure Only (Routine) - Closed Specialty Diagnoses / Procedures Referred By Contac t Referred To Contact XR IMAGING Diagnoses Foot pain, right Procedures XR FOOT GENERAL 3V AP/LAT/OBL RIGHT RADEX FOOT COMPLETE MINIMUM 3 VIEWS Rachel Shirley, DO [address] [facility] [address] [place] [address] Xr Imaging Referral ID Status Reason Start Date Expiration Date V isits Requested Visits Authorized [id number] Closed Auto-Generate d Referral 05/18/2022 06/17/2023 1 1 [facility] for visit Narrative* Imaging (Routine) - Authorized Specialty Diagnoses / Procedures Referred By Contac t Referred To Contact Radiology Diagnoses Abnormal uterine bleeding (AUB) Procedures US pelvis transvaginal Charlee Montano, DO [address] [facility] [address] [place] [address] Phone: tel: fax: Referral ID Status Reason Start Date Expiration Date Visits Requested Visits Authorized [id number] Authorized Perform Procedure 10/30/2024 10/30/2025 1 1 [facility] Work Phone: Advance Directives No Advanced Directives Records FoundDocuments on File Type Date Recorded Patient Acid Changer Expl anation Advance Directives and Living Will Power of Oil Distributor Latest Code Status on File Code Status Date Activated Date Inactivated Comments Full Code 08/02/2019 8:54 AM Full Code 08/01/2019 10:02 PM 08/02/2019 7:43 AM Documents on File Type Date Recorded Patient Acid Changer Expl anation ACP-Advance Directive ACP-Power of Oil Distributor Latest Code Status on File Code Status Date Activated Date Inactivated Comments Full Code 08/02/2019 8:54 AM 08/03/2019 3:56 PM Latest Code Status on File Code Status Date Activated Date Inactivated Comments Full Code 08/05/2021 2:40 AM Full Code 08/05/2021 2:36 AM 08/05/2021 2:40 AM Full Code 08/02/2019 8:54 AM 08/03/2019 3:56 PM Hospital Course * Lima Hemphill MD - 08/03/2019 12:34 PM EDT Obstetric Discharge Summary Patient Name: Collin Roy Patient : 1990 Room/Bed: 319/3191 Primary Care Physician: Primitivo Whitaker MD Admit Date: 08/01/2019 9:23 PM Admitting Diagnosis IUP 39+4 weeks OB History 2 Para 2 Term 2 AB Living 1 SAB TAB Ectopic Molar Multiple Live Births 1 Patient Active Problem List Diagnosis Amniotic fluid leaking Normal labor and delivery (spontaneous vaginal delivery) Reasons for Admission on 08/01/2019 9:23 PM Amniotic fluid leaking [O42.90] Normal labor and delivery [O80] No comment available Onset of Labor Intrapartum Procedures Delivery Date: 08/02/19 Delivery Time: 07 Delivery Method: Vaginal, Spontaneous Spontaneous Vaginal Delivery: See Labor and Delivery Summary Procedures None /Operative Complications Complications: None Data Information for the patient's : Cheryl Roy [[id number]] female Weight: 6 lb 15.1 oz (3.15 kg) Discharge With Mother Complications: No Discharge Diagnosis Post Discharge Information/Patient Instructions: Collin Roy Home Medication Instructions ANGELES:[id number] Printed on:08/03/19 1234 Medication Information ibuprofen (ADVIL;MOTRIN) 600 MG tablet Take 1 tablet by mouth every 6 hours as needed for Pain No discharge procedures on file. Activity: activity as tolerated Diet: regular diet Wound Care: none needed Discharge to: Home in stable condition Follow up in 6 weeks Discharge Date: 08/03/2019 Lima Hemphill MD Home care, Follow-up care and control were reviewed. Signs and symptoms of mastitis and Post Depression were reviewed. The patient is to notify her physician if any of these occur. documented in this encounter Discharge Instructions * Instructions* Lima Hemphill MD - 08/03/2019 Discharge Instructions for Labor and Delivery, Vaginal A vaginal refers to the baby being delivered through the vagina. The amount of time that labor can take varies greatly. Labor for the average first- born baby is about 12 hours. Usually your hospital stay after a routine delivery is no more than two nights. Some new mothers gohome the same day. Recovery from childbirth varies depending upon whether you had an episiotomy (anincision in the perineum, the area between your vaginal opening and your anus), the duration of labor and delivery, and the amount of rest you get. In general, it takes about 6-8 weeks for a woman's body to recover from childbirth. What You Will Need Along with your medications, you will need the following: Sanitary pads Nursing pads Witch chucky pads Sitz bath Steps to Take Home Care You will want to arrange for transportation home for you and your baby. The baby will need a car seat. You will receive instructions in the hospital for and taking care of the perineum area. You may use ointment for cracked nipples or warm water rinses to your perineum. You will need to wear sanitary pads for about six weeks after delivery. If you had an episiotomy or vaginal tear, you will be sent home with a plastic squirt bottle. Fill it with warm water and squirt over the vaginal and anal area every time you urinate and defecate. Warm baths can be soothing to healing tissues. Apply warm or cold cloths to sore breasts. Apply ointment to cracked nipples. Use nursing pads for leaky breast. Apply witch chucky pads to sore perineum (area between vagina and anus). Ask your doctor about when it is safe for you to shower or bathe. Sit in a sitz bath to soothe sore perineum and/or hemorrhoids. A sitz bath is soaking the hip and buttocks area in warm water. You can buy a plastic sitz bath at most [employer] It will fit on your toilet. You can also use your bathtub. Diet Eat a well balanced, healthy diet to help your recover from childbirth. If you are , you will need additional calories each day. You may also be advised to avoid certain foods. Some women experience constipation after childbirth. To avoid this problem: Drink plenty of fluids. Eat foods high in fiber, such as: Whole grain cereals and breads Fruits and vegetables Legumes (eg, beans, lentils) Physical Activity Labor and delivery is tiring. Rest when you can to regain your energy. Your doctor will encourage you to exercise by walking. Ask your doctor when you will be able to return to more strenuous exercise. Your doctor may suggest you do Kegel exercises to strengthen your pelvic muscles. To do these tighten your muscles as if you were stopping your urine flow. Hold for a few seconds and then relax. Do these throughout the day. Medications can cause your uterus to contract. If painful, your doctor may recommend a pain reliever. If you are , it's important to ask your doctor about taking medications. You may receive from the hospital a list of medications to avoid. Once your doctor has approved your medications, it's important to: Take your medication as directed. Do not change the amount or the schedule. Do not stop taking them without talking to your doctor. Do not share them. Know what the results and side effects may be. Report bothersome side effects to your doctor. Some drugs can be dangerous when mixed. Talk to a doctor or pharmacist if you are taking more than one drug. This includes [id number] medication and herb or dietary supplements. Plan ahead for refills so you don't run out. Lifestyle Changes Having a baby requires significant lifestyle changes. You and your doctor will plan lifestyle changes that will help you recover. Some things to keep in mind include: It is important to get enough rest so you can recover. Try sleeping when the baby sleeps. Ask your doctor when you can resume sexual relations. If you have not done so already, talk to yourdoctor about control options. If you are , consider a breast pump. Call your transmitter tester and/or branch rental manager for any questions that arise. Understand the changes your body is going through as it recovers from childbirth: Hot and cold flashes as your body adjusts to new hormone and blood flow levels Urinary or fecal incontinence due to stretched muscles After pains from uterine contractions as the uterus shrinks Vaginal bleeding (called lochia), which is heavier than your period (generally stops within two months) Baby blues, feelings of irritability, sadness, crying, or anxiety. depression is more severe, occurring in 10%-20% of new moms. If you experience such symptoms, contact your doctor. Consider joining a support group for new mothers. You can get encouragement and learn parenting strategies. Follow-up Schedule a follow-up appointment as directed by your doctor. Call Your Doctor If Any of the Following Occurs It is important for you to monitor your recovery once you leave the hospital. That way, you can alert your doctor to any problems immediately. If any of the following occurs, call your doctor: Signs of infection, including fever and chills Increased bleeding: soaking more than one sanitary pad an hour Wounds that become red, swollen or drain pus Vaginal discharge that smells foul New pain, swelling, or tenderness in your legs Pain that you can't control with the medications you've been given Pain, burning, urgency or frequency of urination, or persistent bleeding in the urine Cough, shortness of breath, or chest pain Depression, suicidal thoughts, or feelings of harming your baby Breasts that are hot, red and accompanied by fever Any cracking or bleeding from the nipple or areola (the dark-colored area of the breast) In case of an emergency, call 911 immediately. documented in this encounter History of Present Illness * Lima Hemphill MD - 08/03/2019 12:32 PM EDT ROUNDS Post- Day #1 s/p , Body mass index is 28.32 kg/m . Subjective: Patient doing well this am. No complaints. Pain controlled. Ambulating and voiding with no difficulty. Lochia: Normal, no clots Feeding: breast/bottle Infant: girl Objective: Vitals: 08/02/192 08/02/19 2033 08/03/19 0606 08/03/19 0804 BP: 120/66 110/72 113/79 Pulse: 88 97 83 Resp: 18 16 18 Temp: 97.6 F (36.4 C) 98 F (36.7 C) 97.8 F (36.6 C) TempSrc: Oral Oral Oral Weight: Height: Physical Examination: Appears well Uterus: Firm, NT Calves: NT Lab Results Component Value Date WBC 14.5 (H) 08/01/2019 HGB 12.4 08/01/2019 HCT 36.1 08/01/2019 MCV 91.4 08/01/2019 PLT 277 08/01/2019 Assessment: 29 y.o. PPD # 1 s/p , Body mass index is 28.32 kg/m . O POS There is no immunization history for the selected administration types on file for this patient. Plan: Continue care D/c home Lima Hemphill * Najma Royal - 08/03/2019 8:51 AM EDT Nutrition rescreen completed. Patient assigned a level 1. * Smita Kang RN - 08/02/2019 11:00 PM EDT Pt viewed SIDS and Safe Sleep and Preventing Shaken Baby Syndrome educational videos. Verbalizes understanding of video content and denies any questions. Pt viewed Fabienne Arpan's video, Maximizing Milk Production with Hands on Pumping. Encouraged to use the hands on pumping technique and hand express after each pumping session. Pt verbalized understanding of technique and benefits. * Yolanda Mejia RN - 08/02/2019 9:30 AM EDT Epidural catheter removed tip intact. IV-IID and flushed without difficulty. Pt assited up to bathroom and tolerated well. Teaching done on makayla care. Pt unable to void at this time. Assisted back tosit in bedside chair. Family present at bedside and all bonding well with baby. documented in this encounter Assessments Diagnosis Amniotic fluid leaking Premature rupture of membranes in , unspecified as to episode of care Normal labor and delivery Normal delivery (spontaneous vaginal delivery) Normal delivery Family History No Family History Records FoundUnknown Family Member Name Dates Details Family history of hypertensi on: Mother(V17.49, Z82.49) Status:Active Family history of malignant neoplasm of prostate: Maternal Grandfather(V16.42, Z80.42) Status:Active Family history of colon canc er: Paternal Grandfather(V16.0, Z80.0) Status:Active Family history of breast can cer: Paternal Aunt(V16.3, Z80.3) Status:Active Melanoma in situ of the skin : Brother Status:Active Unknown Family Member Name Dates Details Family history of hypertensi on: Mother(V17.49, Z82.49) Status:Active Family history of malignant neoplasm of prostate: Maternal Grandfather(V16.42, Z80.42) Status:Active Family history of colon canc er: Paternal Grandfather(V16.0, Z80.0) Status:Active Family history of breast can cer: Paternal Aunt(V16.3, Z80.3) Status:Active Melanoma in situ of the skin : Brother Status:Active Unknown Family Member Name Dates Details Family history of hypertensi on: Mother(V17.49, Z82.49) Status:Active Family history of malignant neoplasm of prostate: Maternal Grandfather(V16.42, Z80.42) Status:Active Family history of colon canc er: Paternal Grandfather(V16.0, Z80.0) Status:Active Family history of breast can cer: Paternal Aunt(V16.3, Z80.3) Status:Active Melanoma in situ of the skin : Brother Status:Active Unknown Family Member Name Dates Details Family history of hypertensi on: Mother(V17.49, Z82.49) Status:Active Family history of malignant neoplasm of prostate: Maternal Grandfather(V16.42, Z80.42) Status:Active Family history of colon canc er: Paternal Grandfather(V16.0, Z80.0) Status:Active Family history of breast can cer: Paternal Aunt(V16.3, Z80.3) Status:Active Melanoma in situ of the skin : Brother Status:Active Unknown Family Member Name Dates Details Family history of hypertensi on: Mother(V17.49, Z82.49) Status:Active Family history of malignant neoplasm of prostate: Maternal Grandfather(V16.42, Z80.42) Status:Active Family history of colon canc er: Paternal Grandfather(V16.0, Z80.0) Status:Active Family history of breast can cer: Paternal Aunt(V16.3, Z80.3) Status:Active Melanoma in situ of the skin : Brother Status:Active Unknown Family Member Name Dates Details Family history of hypertensi on: Mother(V17.49, Z82.49) Status:Active Family history of malignant neoplasm of prostate: Maternal Grandfather(V16.42, Z80.42) Status:Active Family history of colon canc er: Paternal Grandfather(V16.0, Z80.0) Status:Active Family history of breast can cer: Paternal Aunt(V16.3, Z80.3) Status:Active Melanoma in situ of the skin : Brother Status:Active Unknown Family Member Name Dates Details Family history of malignant neoplasm of prostate: Maternal Grandfather(V16.42, Z80.42) Status:Active Family history of colon canc er: Paternal Grandfather(V16.0, Z80.0) Status:Active Family history of breast can cer: Paternal Aunt(V16.3, Z80.3) Status:Active Melanoma in situ of the skin : Brother Status:Active Family history of hypertensi on: Mother(V17.49, Z82.49) Status:Active Unknown Family Member Name Dates Details Family history of hypertensi on: Mother(V17.49, Z82.49) Status:Active Family history of malignant neoplasm of prostate: Maternal Grandfather(V16.42, Z80.42) Status:Active Family history of colon canc er: Paternal Grandfather(V16.0, Z80.0) Status:Active Family history of breast can cer: Paternal Aunt(V16.3, Z80.3) Status:Active Melanoma in situ of the skin : Brother Status:Active Unknown Family Member Name Dates Details Family history of hypertensi on: Mother(V17.49, Z82.49) Status:Active Family history of malignant neoplasm of prostate: Maternal Grandfather(V16.42, Z80.42) Status:Active Family history of colon canc er: Paternal Grandfather(V16.0, Z80.0) Status:Active Family history of breast can cer: Paternal Aunt(V16.3, Z80.3) Status:Active Melanoma in situ of the skin : Brother Status:Active Unknown Family Member Name Dates Details Family history of hypertensi on: Mother(V17.49, Z82.49) Status:Active Family history of malignant neoplasm of prostate: Maternal Grandfather(V16.42, Z80.42) Status:Active Family history of colon canc er: Paternal Grandfather(V16.0, Z80.0) Status:Active Family history of breast can cer: Paternal Aunt(V16.3, Z80.3) Status:Active Melanoma in situ of the skin : Brother Status:Active Unknown Family Member Name Dates Details Family history of hypertensi on: Mother(V17.49, Z82.49) Status:Active Family history of malignant neoplasm of prostate: Maternal Grandfather(V16.42, Z80.42) Status:Active Family history of colon canc er: Paternal Grandfather(V16.0, Z80.0) Status:Active Family history of breast can cer: Paternal Aunt(V16.3, Z80.3) Status:Active Melanoma in situ of the skin : Brother Status:Active Unknown Family Member Name Dates Details Family history of hypertensi on: Mother(V17.49, Z82.49) Status:Active Family history of malignant neoplasm of prostate: Maternal Grandfather(V16.42, Z80.42) Status:Active Family history of colon canc er: Paternal Grandfather(V16.0, Z80.0) Status:Active Family history of breast can cer: Paternal Aunt(V16.3, Z80.3) Status:Active Melanoma in situ of the skin : Brother Status:Active Unknown Family Member Name Dates Details Family history of hypertensi on: Mother(V17.49, Z82.49) Status:Active Family history of malignant neoplasm of prostate: Maternal Grandfather(V16.42, Z80.42) Status:Active Family history of colon canc er: Paternal Grandfather(V16.0, Z80.0) Status:Active Family history of breast can cer: Paternal Aunt(V16.3, Z80.3) Status:Active Melanoma in situ of the skin : Brother Status:Active Unknown Family Member Name Dates Details Family history of hypertensi on: Mother(V17.49, Z82.49) Status:Active Family history of malignant neoplasm of prostate: Maternal Grandfather(V16.42, Z80.42) Status:Active Family history of colon canc er: Paternal Grandfather(V16.0, Z80.0) Status:Active Family history of breast can cer: Paternal Aunt(V16.3, Z80.3) Status:Active Melanoma in situ of the skin : Brother Status:Active Unknown Family Member Name Dates Details Family history of hypertensi on: Mother(V17.49, Z82.49) Status:Active Family history of malignant neoplasm of prostate: Maternal Grandfather(V16.42, Z80.42) Status:Active Family history of colon canc er: Paternal Grandfather(V16.0, Z80.0) Status:Active Family history of breast can cer: Paternal Aunt(V16.3, Z80.3) Status:Active Melanoma in situ of the skin : Brother Status:Active Unknown Family Member Name Dates Details Family history of hypertensi on: Mother(V17.49, Z82.49) Status:Active Family history of malignant neoplasm of prostate: Maternal Grandfather(V16.42, Z80.42) Status:Active Family history of colon canc er: Paternal Grandfather(V16.0, Z80.0) Status:Active Family history of breast can cer: Paternal Aunt(V16.3, Z80.3) Status:Active Melanoma in situ of the skin : Brother Status:Active Unknown Family Member Name Dates Details Family history of hypertensi on: Mother(V17.49, Z82.49) Status:Active Family history of malignant neoplasm of prostate: Maternal Grandfather(V16.42, Z80.42) Status:Active Family history of colon canc er: Paternal Grandfather(V16.0, Z80.0) Status:Active Family history of breast can cer: Paternal Aunt(V16.3, Z80.3) Status:Active Melanoma in situ of the skin : Brother Status:Active Unknown Family Member Name Dates Details Family history of hypertensi on: Mother(V17.49, Z82.49) Status:Active Family history of malignant neoplasm of prostate: Maternal Grandfather(V16.42, Z80.42) Status:Active Family history of colon canc er: Paternal Grandfather(V16.0, Z80.0) Status:Active Family history of breast can cer: Paternal Aunt(V16.3, Z80.3) Status:Active Melanoma in situ of the skin : Brother Status:Active Unknown Family Member Name Dates Details Family history of hypertensi on: Mother(V17.49, Z82.49) Status:Active Family history of malignant neoplasm of prostate: Maternal Grandfather(V16.42, Z80.42) Status:Active Family history of colon canc er: Paternal Grandfather(V16.0, Z80.0) Status:Active Family history of breast can cer: Paternal Aunt(V16.3, Z80.3) Status:Active Melanoma in situ of the skin : Brother Status:Active Unknown Family Member Name Dates Details Family history of hypertensi on: Mother(V17.49, Z82.49) Status:Active Family history of malignant neoplasm of prostate: Maternal Grandfather(V16.42, Z80.42) Status:Active Family history of colon canc er: Paternal Grandfather(V16.0, Z80.0) Status:Active Family history of breast can cer: Paternal Aunt(V16.3, Z80.3) Status:Active Melanoma in situ of the skin : Brother Status:Active Relationship Condition Age at Onset Recorded Date/T marcell grandfather Malignant neoplasm of colon Unknown Malignant neoplasm of prostate Unknown Malignant neoplasm of lung Unknown Lymphoma Unknown grandmother Malignant neoplasm of breast Unknown mother Hypertension Unknown Summary Purpose Chief Complaint * PT is here for a CPE * She had a baby 08/05 and is nursing * pt is being seen for a cough, sometimes productive, other times it feels there is stuff stuck in her chest, chest feels tight, feels lungs are sore * feels fatigue. * stated yesterday she started to feel better * symptoms started 10 days ago * SHe is still nursing Dark urinePT is here for a CPE Chief Complaint and Reason for Visit Chief Complaint MILK BANK Chief Complaint Admit Date DISCUSS POSSIBLE ABLATION January 07 11:04am Reason for Visit Admit Date Abnormal uterine and vaginal bleeding, u nspecified January 07, 2025 11:04am Reason for Referral Specialty Diagnoses / Procedures Referred By Mickey t Referred To Contact Radiology Diagnoses Breast pain, left Mass of upper outer quadrant of left breast Procedures BI mammo left diagnostic tomosynthesis Charlee Montano, DO [address] [facility], [address] [place] [address] Referral ID Status Reason Start Date Expiration Date Visits Requested Visits Authorized [id number] Authorized Perform Procedure 01/20/2024 01/19/2025 1 1 Specialty Diagnoses / Procedures Referred By Contac t Referred To Contact Radiology Diagnoses Breast pain, left Mass of upper outer quadrant of left breast Procedures BI US breast complete left Charlee Montano, DO [address] [facility], [facility] [address] [place] [address] Referral ID Status Reason Start Date Expiration Date Visits Requested Visits Authorized [id number] Authorized Perform Procedure 01/20/2024 01/19/2025 1 1 Additional Source Comments Reason for Visit (unrecogniz ed section and content) Reason Comments Rupture of Membranes Reason Comments Contractions Reason Comments Laboring Reason Comments Pain (foot) RIGHT FOOT PAIN X 3 DAYS NO KNOWN INJURY Reason Comments Annual Exam Already had the flu shot Follow-up Anxiety Depression Hyperlipidemia Reason Comments Breast Pain Pain and lump for ab out a month no other sx Specialty Diagnoses / Procedures Referred By Contac t Referred To Contact Radiology Diagnoses Breast pain, left Mass of upper outer quadrant of left breast Procedures BI mammo left diagnostic tomosynthesis Charlee Montano, DO [address] [facility], [address] [place] [address] Referral ID Status Reason Start Date Expiration Date Visits Requested Visits Authorized [id number] Authorized Perform Procedure 01/20/2024 01/19/2025 1 1 Specialty Diagnoses / Procedures Referred By Contac t Referred To Contact Radiology Diagnoses Breast pain, left Mass of upper outer quadrant of left breast Procedures BI US breast limited left BI US breast complete left Charlee Montano, DO [address] [facility], [address] [place] [address] Referral ID Status Reason Start Date Expiration Date Visits Requested Visits Authorized [id number] Pending Review Perform Procedure 01/20/2024 01/19/2025 1 1 Reason Comments Annual Exam Follow-up Anxiety Depression Reason Comments URI Cough and congestion x2 weeks. SOB and chest muscle pain x2-3 days. Scheduled Active and Recently Administ ered Medications (unrecognized section and content) Medication Order 08/04/2021 08/05/2021 08/06/2021 acetaminophen (TYLENOL) tablet 650 mg 650 mg, Oral, EVERY 6 HOURS, First dose on Tue08/05/21 at 0300, Maximum dose of acetaminophen is 4000 mg from all sources in 24 hours., 0400 (Given - Provider: Bradford Boyce RN)1038 (Given - Provider: Vladimir Gunderson RN)1608 (Given - Provider: Vladimir Gunderson RN)2210 (Given - Provider: Bradford Boyce RN) 0300 (Not Given - Provider: Bradford Boyce RN - Reason: Patient/family refused - Comment: Pt sleeping and requests not to be woken up.)0900 (Due)1500 (Due)2100 (Due) ibuprofen (ADVIL;MOTRIN) tablet 600 mg 600 mg, Oral, EVERY 6 HOURS, First dose on Tue08/05/21 at 0900, Do not crush or chew., 0400 (Given - Provider: Bradford Boyce RN)1038 (Given - Provider: Vladimir Gunderson RN)1608 (Given - Provider: Vladimir Gunderson RN)2210 (Given - Provider: Bradford Boyce RN) 0300 (Not Given - Provider: Bradford Boyce RN - Reason: Patient/family refused - Comment: Pt sleeping and requests not to be woken up.)0900 (Due)1500 (Due)2100 (Due) ibuprofen (ADVIL;MOTRIN) tablet 600 mg 600 mg, Oral, ONCE, On Tue08/05/21 at 0300, For 1 dose, IMMEDIATE . Do not crush or chew. DO NOT GIVE IBUPROFEN PRIOR TO DELIVERY., Post Delivery 0400 (Not Given - Provider: Bradford Boyce RN - Reason: Contraindicated) sertraline (ZOLOFT) tablet 100 mg 100 mg, Oral, DAILY, First dose on Tue08/05/21 at 0900 2209 (Given - Provider: Bradford Boyce RN) 2100 (Due - Provider: Tomas Phillips, [facility]) Continuous Medication Order 08/04/2021 08/05/2021 08/06/2021 lactated ringers infusion IntraVENous, at 125 mL/hr, CONTINUOUS, Starting on Tue08/05/21 at 0300, Labor and Delivery 0404 (Not Given - Provider: Bradford Boyce, [facility] - Reason: Order parameters not met) oxytocin (PITOCIN) 10 unit bolus from the bag 500 mL (30 Units), IntraVENous, Administer over 75 Minutes, TITRATED, Starting on Tue08/05/21 at 0300, For Immediate Post Use Only. Give after delivery of placenta. Bag 1 of 2: Bolus for bag to infuse at 999 ml/hour for 15 minutes (15 units in 250cc). After initial bolus then decrease rate to 250cc/hr for 1 hour. Then discontinue., Multiphase Phase of Care 0235 (New Bag - Provider: Jacobs, [facility])0400 (Stopped - Provider: Bradford Boyce, [facility]) PRN Medication Order 08/04/2021 08/05/2021 08/06/2021 0.9 % sodium chloride infusion 25 mL, IntraVENous, at 100 mL/hr, PRN, If patient receiving piggyback infusions without ordered maintenance IV fluids or with frequent/long duration piggyback infusions, Starting on Tue08/05/21 at 0235, Administer at the same rate as the piggyback being infused., Labor and Delivery acetaminophen (TYLENOL) tablet 650 mg 650 mg, Oral, EVERY 4 HOURS PRN, Pain Mild (1-3), Fever, Fever >100.5 F (38 C), Starting on Tue08/05/21 at 0235, Maximum dose of acetaminophen is 4000 mg from all sources in 24 hours., Labor and Delivery benzocaine-benzethonium (DERMOPLAST) 20-0.2 % spray Topical, PRN, Pain, Starting on Tue08/05/21 at 0235, Apply to perineal area. Patient is capable and may self administer at bedside., Post Delivery benzocaine-benzethonium (DERMOPLAST) 20-0.2 % spray Topical, PRN, Pain, Starting on Tue08/05/21 at 0240, Apply to perineal area. Patient is capable and may self administer at bedside., 0401 (Given - Provider: Bradford Boyce, EVANS) docusate sodium (COLACE) capsule 100 mg 100 mg, Oral, 2 TIMES DAILY PRN, Constipation, Starting on Tue08/05/21 at 0240, Do not crush or break., 1038 (Given - Provider: Vladimir Gunderson, RN)2213 (Given - Provider: Bradford Boyce, EVANS) 0944 (Given - Provider: Vladimir Gunderson, RN) lactated ringers bolus(Linked Group 1) 500 mL, IntraVENous, at 250 mL/hr, Administer over 2 Hours, PRN, Intrauterine resuscitation for hypertonus, tachysystole, non-reassuring status, or as prescribed by the physician. Every hour as needed, nurse may repeat bolus., Starting on Tue08/05/21 at 0235, Labor and Delivery lactated ringers bolus(Linked Group 1) 1,000 mL, IntraVENous, at 500 mL/hr, Administer over 2 Hours, PRN, Give prior to epidural placement. May be repeated if a second epidural/spinal procedure is performed., Starting on Tue08/05/21 at 0235, Labor and Delivery lansinoh lanolin ointment Topical, PRN, Dry Skin, nipple discomfort, Starting on Tue08/05/21 at 0240, 0400 (Given - Provider: Bradford Boyce RN) morphine injection 2 mg(Linked Group 2) 2 mg, IntraVENous, EVERY 2 HOURS PRN, Pain Moderate (4-6), Starting on Tue08/05/21 at 0240, If oral and IV narcotics ordered, use oral first and only use IV if oral is ineffective or cannot take oral. Do Not give oral and IV within 1 hour of each other unless specifically ordered., 0257 (See Alternative - Provider: Bradford Boyce, EVANS) morphine injection 4 mg(Linked Group 2) 4 mg, IntraVENous, EVERY 2 HOURS PRN, Pain Severe (7-10), Starting on Tue08/05/21 at 0240, If oral and IV narcotics ordered, use oral first and only use IV if oral is ineffective or cannot take oral. Do Not give oral and IV within 1 hour of each other unless specifically ordered., 0257 (Given - Provider: Bradford Boyce, EVANS) ondansetron (ZOFRAN) injection 4 mg 4 mg, IntraVENous, EVERY 6 HOURS PRN, Nausea, Starting on Tue08/05/21 at 0240, ondansetron (ZOFRAN) injection 4 mg 4 mg, IntraVENous, EVERY 6 HOURS PRN, Nausea, Starting on Tue08/05/21 at 0235, Labor and Delivery oxytocin (PITOCIN) 30 units in 500 mL infusion () 125 sunday-units/min (125 mL/hr), IntraVENous, at 125 mL/hr, CONTINUOUS PRN, Bleeding, Starting on Tue08/05/21 at 0238, For 4 hours, For Immediate Post Use Only. Give after delivery of placenta and initial 30 unit bolus. Bag 2 of 2: 125cc/hr (125 mu/min) for an additional infusion of 500cc (30 units)., Multiphase Phase of Care 0400 (New Bag - Provider: Bradford Boyce RN)0826 (Stopped - Provider: Vladimir Gunderson RN) simethicone (MYLICON) chewable tablet 80 mg 80 mg, Oral, EVERY 6 HOURS PRN, Cramping, Flatulence, Starting on Tue08/05/21 at 0240, sodium chloride flush 0.9 % injection 5-40 mL 5-40 mL, IntraVENous, PRN, Line Care, Starting on Tue08/05/21 at 0235, For Line Patency: Peripheral IV = 5 mL; Midline or Central Line = 10 mL/lumen. If following IV push medication, administer flush at same rate as the IV push. Flush volume is determined by type of infusion therapy being given. For non-viscous solutions use: Peripheral IV = 5 mL Midline or Central Line = 10 mL/lumen For viscous solutions (i.e. blood components, parenteral nutrition, contrast media, or after obtaining blood sample) use: Peripheral IV = 10 mL Midline or Central Line = 20 mL/lumen, Labor and Delivery witch chucky-glycerin (TUCKS) pad Topical, PRN, Hemorrhoids, For perineal pain or discomfort, Starting on Tue08/05/21 at 0240, Apply to perineal area. Patient is capable and may self administer at bedside., 0401 (Given - Provider: Bradford Boyce RN) Linked Groups Order Group 1: lactated ringers bolusJump to med 500 mL, IntraVENous, at 250 mL/hr, Administer over 2 Hours, PRN, Intrauterine resuscitation for hypertonus, tachysystole, non-reassuring status, or as prescribed by the physician. Every hour as needed, nurse may repeat bolus., Starting on Tue08/05/21 at 0235, Labor and Delivery Or lactated ringers bolusJump to med 1,000 mL, IntraVENous, at 500 mL/hr, Administer over 2 Hours, PRN, Give prior to epidural placement. May be repeated if a second epidural/spinal procedure is performed., Starting on Tue08/05/21 at 0235, Labor and Delivery Group 2: morphine injection 2 mgJump to med 2 mg, IntraVENous, EVERY 2 HOURS PRN, Pain Moderate (4-6), Starting on Tue08/05/21 at 0240
If oral and IV narcotics ordered, use oral first and only use IV if oral is ineffective or cannot take oral. Do Not give oral and IV within 1 hour of each other unless specifically ordered.
Or morphine injection 4 mgJump to med 4 mg, IntraVENous, EVERY 2 HOURS PRN, Pain Severe (7-10), Starting on Tue08/05/21 at 0240
If oral and IV narcotics ordered, use oral first and only use IV if oral is ineffective or cannot take oral. Do Not give oral and IV within 1 hour of each other unless specifically ordered.
INFORMATION SOURCE (unrecogn ized section and content) DATE CREATED AUTHOR 08/17/2021 [facility] DATE CREATED AUTHOR AUTHOR'S ORGANIZ ATION 05/25/2022 [facility] DATE CREATED AUTHOR AUTHOR'S ORGANIZ ATION 09/11/2022 [employer] DATE CREATED AUTHOR AUTHOR'S ORGANIZ ATION 09/23/2022 [facility] DATE CREATED AUTHOR AUTHOR'S ORGANIZ ATION 02/12/2024 [facility] DATE CREATED AUTHOR AUTHOR'S ORGANIZ ATION 12/17/2024 [facility] DATE CREATED AUTHOR AUTHOR'S ORGANIZ ATION 02/03/2025 [facility] DATE CREATED AUTHOR AUTHOR'S ORGANIZ ATION 09/03/2025 [facility] Source Comments (unrecognize d section and content) In the event this informatio n is protected by the Federal Confidentiality of Alcohol and Drug Abuse Patient Records regulations: The Federal rules restrict any use of the information to criminally investigate or prosecute any alcohol or drug abuse patient.[facility] the event this information is protected by the Federal Confidentiality of Alcohol and Drug Abuse Patient Records regulations: The Federal rules restrict any use of the information to criminally investigate or prosecute any alcohol or drug abuse patient.[facility] the event this information is protected by the Federal Confidentiality of Alcohol and Drug Abuse Patient Records regulations: The Federal rules restrict any use of the information to criminally investigate or prosecute any alcohol or drug abuse patient.[facility] the event this information is protected by the Federal Confidentiality of Alcohol and Drug Abuse Patient Records regulations: The Federal rules restrict any use of the information to criminally investigate or prosecute any alcohol or drug abuse patient.[facility] Care Teams (unrecognized sec tion and content) Mannequin Refinisher Relationship Specialty Start Date End Date Charlee Montano DO [address] [facility] [address] [place] [address] PCP - General Family Practice 05/18/22 Mannequin Refinisher Relationship Specialty Start Date End Date Charlee Montano DO [address] [facility] [address] [place] [address] PCP - General Family Practice 05/18/22 Mannequin Refinisher Relationship Specialty Start Date End Date Charlee Montano DO [address] [facility] [place] [address] PCP - General 07/29/20 Mannequin Refinisher Relationship Specialty Start Date End Date Charlee Montano DO [address] [facility] [place] [address] PCP - General 07/29/20 Mannequin Refinisher Relationship Specialty Start Date End Date Charlee Montano DO [address] [facility] [place] [address] PCP - General 07/29/20 Mannequin Refinisher Relationship Specialty Start Date End Date Charlee Montano DO [address] [facility] [place] [address] PCP - General 07/29/20 Mannequin Refinisher Relationship Specialty Start Date End Date Charlee Montano DO [address] [facility] [place] [address] PCP - General 07/29/20 Mannequin Refinisher Relationship Specialty Start Date End Date Charlee Montano DO [address] [facility] [address] [place] [id number] PCP - General Family Medicine 05/18/22 Mannequin Refinisher Relationship Specialty Start Date End Date Charlee Montano DO [address] [facility] [address] [place] [address] PCP - General Family Medicine 05/18/22 Mannequin Refinisher Relationship Specialty Start Date End Date Primitivo Whitaker MD [address] [place], [place] [id number] PCP - General Family Medicine 03/15/19 Team Status: Active Member Role Status Dates Jamee Corley Attending Provider Active Start: Jl stack 2024 Team Status: Inactive Member Role Status Dates Dr. Lima Gonzalez DO Attending Provider Activ e Start: January 07, 2025 End: January 07, 2025 Team Status: Inactive Member Role Status Dates Dr. Lima Gonzalez DO Attending Provider Activ e Start: January 07, 2025 End: January 07, 2025 Dr. Lima Gonzalez DO Referring Provider Activ e Start: January 07, 2025 End: January 07, 2025 Goals (unrecognized section and content) Goals may be documented in a n alternate sectionGoals may be documented in an alternate section FOR RECORDS PERTAINING TO PATIENTS WHO ARE OR HAVE BEEN ENROLLED IN A CHEMICAL DEPENDENCY/SUBSTANCEABUSE PROGRAM, SOME INFORMATION MAY BE OMITTED. This clinical summary was aggregated from multiple sources. Caution should be exercised in using it in the provision of clinical care. This summary normalizes information from multiple sources, and as a consequence, information in this document may materially change the coding, format and clinical context of patient data. In addition, data may be omitted in some cases. CLINICAL DECISIONS SHOULD BE BASED ON THE PRIMARY CLINICAL RECORDS. [facility] [employer] [facility]. provides no warranty or guarantee of the accuracy or completeness of information in this document.
[2025-09-17] MEDS: Scopolamine 1mg/72hr Patch 1 PATCH TD (06:07)
[2025-09-17] MEDS: Lactated Ringers 1,000 ML 40 ML IV (06:11)
[2025-09-17] MEDS: Magnesium 1 GM over 15 mins IV (06:13)
[2025-09-17 06:17] LABS: Internal QC Validated? YES +Cl - CLEAR BKGD; Pregnancy, Urine Negative Negative
[2025-09-17 06:18] LABS: Record Kit Lot#,Urine Preg 0000980607
--- NOTE | 2025-09-17 06:36 | PCM.PRE.AN2 ---
ASA Classification* ASA Classification ASA Classification: 2 (Migraines, hx of tachycardia, anxiety) Assessment & Plan Anesthesia* Anesthesia Assessment Anesthesia Assessment: Discussed sedation and/or anesthesia options, risks, benefits, and alternatives with patient/parents/legal guardian/POA. Questions invited. The patient/parents/legal guardian/POA seems to understand and agrees to proceed with anesthesia plan. Reviewed the physical assessment, medical history, allergy history and patient home medications list prior to surgery/procedure/anesthetic and documented any changes. Performed airway and anesthesia risk assessments. Anesthesia Type Anesthesia Type: General History Source History Obtained from:: Patient and Chart Anesthesia Focused Assessment* Temperature: 97.9 F Pulse Rate: 99 Blood Pressure: 124/80 Respiratory Rate: 16 Pulse Ox: 99 Oxygen Delivery Method: Room Air Airway Assessment Mouth opens: >3 cm Mallampati Score: II Teeth Condition: Intact Neck Range of motion (ROM): Full ROM Labs Anesthesia Preop lab: CBC WBC, (4.4-11.0) 7.1 K/mm3 09/10/25, 10:16 RBC, (4.2-5.4) 4.78 M/mm3 09/10/25, 10:16 Hgb, (12.0-15.0) 14.3 g/dL 09/10/25, 10:16 Hct, (37-47) 42.8 % 09/10/25, 10:16 Plt Count, (150-450) 358 K/mm3 09/10/25, 10:16 CHEMISTRY Magnesium, (1.5-2.2) 2.1 mg/dL 09/10/25, 10:15 POC Glucose, (74-106) 82 mg/dL Today, 06:04 COAG Urine Test Negative Negative Today, 06:00 Pre-Assessment Diagnosis/Proposed Procedure Planned Operative Procedure(s): TOTAL ROBOTIC HYSTERECTOMY BILATERAL SALPINGECTOMY, CYSTOSCOPY Anesthesia History 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 When Was Last Pacemaker Check QUESTION #4 FULL TEXT: You/Your Family Experience fever (hyperthermia) with Anesthesia Last Oral Intake Last Oral intake: Last Oral Intake NPO since 03:30 09/17/25 06:02 Meds taken in AM with sips of No 09/17/25 06:02 water? Meds patient instructed to take am of surgery PONV PONV - corrective therapy aide teacher: PONV - corrective therapy aide teacher Female Yes 09/03/25 08:05 HX of Motion Sickness No 09/03/25 08:05 HX of N/V After Surgery No 09/03/25 08:05 Non-Smoker Yes 09/03/25 08:05 Duration of Surgery greater Yes 09/03/25 08:05 than 60 minutes Number of Risk Factors 3 09/03/25 08:05 PONV Score Moderate Risk 09/03/25 08:05 Height & Weight Height & Weight: Anesthesia: Height & Weight Height 5 ft 09/17/25 06:02 Weight: 63.231 kg 09/17/25 06:02 Body Mass Index (BMI) 27.2 09/17/25 06:02 Respiratory Assessment Respiratory Assessment - corrective therapy aide teacher: Respiratory Tract Infection Hx - corrective therapy aide teacher Hx Respiratory Tract Infection No 09/03/25 08:05 STOP Sleep Apnea STOP Sleep Apnea - corrective therapy aide teacher: STOP Sleep Apnea - corrective therapy aide teacher Hx Hypertension No 09/03/25 08:05 Hx Sleep Apnea No 09/03/25 08:05 CPAP BIPAP Do you snore loudly (louder No 09/03/25 08:05 than talking or can be heard Do you often feel tired/ No 09/03/25 08:05 fatigued/ sleepy during daytime? Has anyone observed you stop No 09/03/25 08:05 breathing during sleep? STOP Results Negative 09/03/25 08:05 QUESTION #5 FULL TEXT : Do you snore loudly (louder than talking or can be heard through closed doors)? 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 Specify any problems Hx of Preganancy in last 3 No 09/03/25 08:05 Months Nurse Filling Out Transfusion [id number] 09/03/25 08:05 & Questions: Date: 09/03/25 09/03/25 08:05 Time: 08:09 09/03/25 08:05 Patient unable to answer at this time (ie. confused, unrespo /Reproduction History /Reproductive History - corrective therapy aide teacher: /Reproductive Hx- corrective therapy aide teacher Hx Now No 09/03/25 08:05 Gestational Age (in weeks): EDC: Hx Hx Para Hx Section SAB No 09/03/25 08:05 Does the father of the baby or his family experience fever w Father of the baby Malignant Hypertension history comment Active Medications Active Medications: Current Medications Generic Name Dose Route Start Last Admin Trade Name Freq PRN Reason Stop Dose Admin Acetaminophen 1,000 mg 09/17/25 07:30 09/17/25 06:07 Acetaminophen 500 Mg Tablet PO 09/17/25 07:31 1,000 mg PREOP ONE Administration Celecoxib 400 mg 09/17/25 07:30 09/17/25 06:07 Celecoxib 200 Mg Capsule PO 09/17/25 07:31 400 mg PREOP ONE Administration Gabapentin 600 mg 09/17/25 07:30 09/17/25 06:07 Gabapentin 600 Mg Tablet PO 09/17/25 07:31 600 mg PREOP ONE Administration Lactated Ringer's 1,000 mls @ 40 mls/hr 09/17/25 07:30 09/17/25 06:11 IV 40 mls/hr .Q25H NOHEMI Administration Cefazolin Sodium 2 gm/ Sodium 110 mls @ 150 mls/hr 09/17/25 07:30 Chloride IV 09/17/25 08:13 INTRAOP ONE Lactated Ringer's 1,000 mls @ 70 mls/hr 09/17/25 07:30 IV .[id number] NOHEMI Magnesium Sulfate 1 gm/ 102 mls @ 408 mls/hr 09/17/25 07:30 09/17/25 06:13 Dextrose IV 09/17/25 07:44 408 mls/hr PREOP ONE Administration Insulin Human Lispro 0 unit 09/17/25 07:30 Insulin Lispro 100 Unit/Ml Insuln.Pen SC 09/17/25 18:00 Q4H PRN PRN BG >/= 180, SEE PROTOCOL Protocol Ondansetron HCl 4 mg 09/17/25 07:30 Ondansetron 4 Mg/2 Ml Vial IV 09/17/25 07:31 INTRAOP ONE Phenazopyridine HCl 190 mg 09/17/25 07:30 09/17/25 06:14 Phenazopyridine 95 Mg Tablet PO 09/17/25 07:31 190 mg PREOP ONE Administration Scopolamine HBr 1 patch 09/17/25 07:30 09/17/25 06:07 Scopolamine 1mg/72hr Patch TD 09/17/25 07:31 1 patch PREOP ONE Administration PFSH Medical History (Updated 09/03/25 @ 08:13 by Jose Gomez) Wears glasses Alcohol use Non-smoker Cardiology follow-up encounter History of Holter monitoring Abnormal uterine and vaginal bleeding, unspecified Migraine Depression with anxiety Home Medications ?Medication ?Instructions ?Recorded ?Last Taken ?Type hydroxyzine HCl 25 mg tablet 25 mg PO QHS PRN anxiety 01/07/25 09/17/25 03:30 History rizatriptan 10 mg tablet See Rx Instructions PO .COMPLEX 01/07/25 09/16/25 20:30 History venlafaxine 37.5 mg 37.5 mg PO QHS #90 caps 03/13/25 09/16/25 20:30 Rx capsule,extended release 24 hr (Effexor XR) Allergy/AdvReac Type Severity Reaction Status Date / Time No Known Allergies Allergy Verified 09/17/25 06:00 Family History Grandfather Colon cancer Prostate cancer Lung cancer Lymphoma Grandmother Breast cancer triple negative Mother Hypertension Surgical History S/P wisdom tooth extraction S/P tonsillectomy S/P sinus surgery Social History Smoking Status: Never smoker alcohol intake: current details: occasionally substance use type: does not use caffeine: Yes what type of physical activity do you participate in: walking frequency: 1-2 times per week seatbelt use: always do you feel safe at home: Yes additional social history: - Sahil 2 step children-Adriana Lewis Review of Systems (Anesthesia) ROS Narrative System reviewed and no additional complaints, except as documented. Physical Exam Const alert, oriented x3 and average body habitus Resp normal respiratory effort, normal air movement and clear to auscultation bilaterally Cardio regular rate, regular rhythm and no murmurs; Negative for diaphoretic
--- NOTE | 2025-09-17 07:09 | PCM.HP.BLA ---
History and Physical Date of Admission: 09/17/25 Intake Vital Signs 01/07/2511:13 09/02/2514:00 09/02/2514:03 Height 5 ft 5 ft 5 ft Weight: 120 lb 4 oz 138 lb 5 oz BMI 23.5 27.0 BP 117/81 H 120/79 Intake Visit Reasons: Hyst consult/preop keep 20 min. Special Services Agent Required: No Is patient in pain?: No Allergies No Known Allergies Allergy (Unverified 09/02/25 13:58) Medications ?Medication ?Instructions ?Recorded ?Confirmed ?Type cholecalciferol (vitamin D3) 50 50 mcg PO QDAY 01/07/25 09/02/25 History mcg (2,000 unit) capsule hydroxyzine HCl 25 mg tablet 25 mg PO QHS PRN 01/07/25 09/02/25 History rizatriptan 10 mg tablet See Rx Instructions PO .COMPLEX 01/07/25 09/02/25 History venlafaxine 37.5 mg 37.5 mg PO QHS #90 caps 03/13/25 09/02/25 Rx capsule,extended release 24 hr (Effexor XR) Is last menstrual period known: Yes Last Menstrual Period: 08/20/25 Post menopausal: No Patient : No : No PFSH Medical History Abnormal uterine and vaginal bleeding, unspecified Migraine Depression with anxiety Surgical History S/P wisdom tooth extraction S/P tonsillectomy S/P sinus surgery Family History Grandfather Colon cancer Prostate cancer Lung cancer Lymphoma Grandmother Breast cancer triple negative Mother Hypertension Social History Smoking Status: Never smoker alcohol intake: current details: occasionally substance use type: does not use caffeine: Yes what type of physical activity do you participate in: walking frequency: 1-2 times per week seatbelt use: always do you feel safe at home: Yes additional social history: - Sahil 2 step children-Adriana Lewis Hyst consult/preop keep 20 min. Details: COLLIN COBURN is a 34 year old (vaginal deliveries), who presents for discussion about ablation procedure. Contraception is her 's vasectomy Ultrasound at shows an 8.5 x 4.9 x 5.2 cm uterus. The endometrium is 1 cm. She states that she has heavy periods causing passing of large clots. She also has postcoital bleeding at times and unscheduled bleeding during the month. This has been going of for 2 years. Periods last 7-14 days (heavy for a week) then has spotting and another cycle starts 2 weeks later. She also has vaginal bleeding after intercourse. She also states that she has a history of migraine with aura. 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 Her PCP offered an IUD and she does not want to try this. EMB was benign. Female Reproductive History Last Menstrual Period: 08/20/25 History 2 Elective abortions Hx Para 2 Spontaneous abortions Hx # Term Pregnancies Ectopic pregnancies Hx # Pregnancies Multiple births # of living children Past Pregnancies Del. Date Name GA/Weeks Outcome Route Bth Weight Gen Labor Lgth Anesthesia Del Locatn Provider FOB Unknown [place] Unknown Anitha ROS Const ROS Unobtainable: All systems reviewed & are unremarkable except as noted in H Resp Resp: Reports system reviewed and no additional complaints, except as documented; Denies cough GI GI: Reports as per HPI Psych Psych: Reports system reviewed and no additional complaints, except as documented Exam Const General: cooperative, healthy appearing, comfortable and no acute distress Resp Effort & Inspection: normal respiratory effort Skin General: no rashes or lesions noted Psych Appearance: grossly normal Speech and Movement: speech and movement normal Coding Level of Care Code Off vis,est,level 4 Diagnoses Abnormal uterine and vaginal bleeding, unspecified N93.9 Fatigue R53.83 Assessment and Plan Assessment and Plan (1) Abnormal uterine and vaginal bleeding, unspecified: Status: Acute (2) Fatigue: Status: Acute Orders: Orders Ferritin Today N93.9 - Abnormal uterine and vaginal bleeding, unspecified, R53.83 - Other fatigue Iron+Iron Binding Capacity Today N93.9 - Abnormal uterine and vaginal bleeding, unspecified, R53.83 - Other fatigue CBC W/Diff, Automated Today N93.9 - Abnormal uterine and vaginal bleeding, unspecified, R53.83 - Other fatigue Type & Screen - PAT ONLY Today N93.9 - Abnormal uterine and vaginal bleeding, unspecified, R53.83 - Other fatigue Plan After discussing the patient's diagnosis and treatment plan options, patient wishes to proceed with surgical management. I have discussed with the patient the risks, benefits, and alternatives of the procedure which include but are not limited to risks of anesthesia, bleeding, infection, possible damage to bowel, bladder, or surrounding vasculature which could lead to additional surgery to evaluate any complications. Patient agrees to procedure and wishes to proceed. ACOG/uptodate references given for additional information regarding procedure. plan for total robotic hysterectomy, bs, cysto
--- NOTE | 2025-09-17 07:10 | DCINST_ITS ---
Discharge Instructions DC O2, CPAP, BIPAP needs Home O2 Discharge instructions: No Dressing / Incision Discharge Activity: May Shower May resume sexual activity in: 8 weeks Weight Bearing Status: Full weight bearing Lifting Restrictions: 10 pounds for 2 weeks Dressing / Incision Call your doctor if your incision/area has: Continuous Slow Oozing, Sudden I ncreased Bleeding, Increased Pain/ Swelling, Increased Redness and Foul Smelling Discharge Call your doctor if you observe: Fever of 101 or Higher, Using more than 1 pad per hour, Shortness of breath, Chest pain and Uncontrolled pain Suture Line Care: Avoid Pulling/Pushing and Avoid Pinching/Bending Remove Dressing in: 1 week (if present) Cleanse incision/area with: Soap & Water and Keep Dressing Clean & Dry Follow Up Care Please Follow Up With: Lima Gonzalez DO When: Call to make an appointment with your doctor for a postop visit in 2 and 6 weeks Test Results: Test results from this visit will be discussed in further detail at your follow- up appointment, if applicable. Discharge Plan Admission Primary Reason for Your Visit: hysterectomy Attending Provider: Lima Gonzalez Primary Care Provider: Charlee Montano Instructions Print Language: Guatemalan Discharge Orders/Prescriptions Prescriptions: New ibuprofen 800 mg tablet 800 mg PO Q8H PRN (Reason: pain) Qty: 30 0RF oxycodone-acetaminophen [Percocet] 5-325 mg tablet 1 tab PO Q4H PRN (Reason: pain) 7 Days Qty: 20 0RF Continued hydroxyzine HCl 25 mg tablet 25 mg PO QHS PRN (Reason: anxiety) rizatriptan 10 mg tablet See Rx Instructions PO .COMPLEX Rx Instructions: take 1 tab at onset of headache; if no relief may repeat 1 tab after at least 2 hrs; max = 3 tabs/24 hr PO venlafaxine [Effexor XR] 37.5 mg capsule,extended release 24hr 37.5 mg PO QHS Qty: 90 4RF Disposition Disposition (needs filled in before D/C Order can be placed): Home, Self Care
--- NOTE | 2025-09-17 07:30 | UT_PTH ---
PATIENT: COLLIN COBURN LOC: [facility] – [place] U#:[id number] AGE/SX: 35/F ROOM: RE09/17/[address]: Dr. Lima Gonzalez DO : 1990 BED: DIS: 09/17/2025 SPEC #: [id number] RECD: 09/17/25 09:36 STATUS: PARAG MEDEIROSJessi #: [id number] ELMO: 09/17/25 07:[address]: Lima Gonzalez DEPT: SURGICAL PATHOLOGY RECD BY: Taurus Santos ENTERED: 09/17/25 11:26 SP TYPE: UTERUS OTHR DR: Dr. Charlee Montano, Tissues: A - Uterus, NOS Procedures: Surgery Specimen Level V HEADER OPERATION: ERAS, laparoscopic total robotic hysterectomy, bilateral salpingectomy PRE-OP DIAGNOSIS: Abnormal uterine and vaginal bleeding, unspecified, fatigue TISSUE SUBMITTED: A- Uterus, cervix, bilateral fallopian tubes MICROSCOPIC DIAGNOSIS A. Uterus, fallopian tubes, hysterectomy, bilateral salpingectomy: Cervix: Benign squamous epithelium and endocervical glandular tissue Endometrium: Secretory endometrium Myometrium: Leiomyoma Fallopian tubes: Benign fallopian tubes with benign paratubal cysts MICROSCOPIC DESCRIPTION Slides are reviewed. GROSS DESCRIPTION A. Received in formalin labeled with the patient's name and date of . Designated as uterus, cervix, bilateral fallopian tubes is a 153.3 g, 8.6 x 6.0 x 5.0 cm uterus with attached adnexa. The serosa is seymour-pink to purple and somewhat granular with a 0.3 x 0.2 x 0.1 cm nodule on the anterior aspect. The attached cervix is pink-seymour purple and somewhat edematous, measuring 3.5 x 3.4 cm; the 1.1 cm os is probe patent, has surrounding, erythematous granularity and is expelling slightly hemorrhagic mucoid material. Mucoid containing cyst are not present. The specimen is inked as follows: Dlkamigx-[id number]-wavnp Opening reveals a 6.1 x 2.1 cm endometrial canal lined by seymour-pink to red, lush endometrium that measures up to 1.4 cm thick. The myometrium is seymour-pink and measures up to 2.5 cm thick. Definitive lesions are not grossly appreciated. The purple-red bilateral fallopian tubes are fimbriated and measure 6.0 x 0.7 cm (L) and 3.0 x 0.6 cm (R). The left fallopian tube has a 0.5 cm paratubal cyst. Print Shop Stenographer sections are submitted as follows: A1: Anterior cervixA2: Posterior cervixA3: Anterior endomyometriumA4: Posterior endomyometriumA5: Left fallopian tubeA6: Right fallopian tube fimbriaA7: Right fallopian tube cross-section and serosal nodule WI 09/17/2025 CPT:99678
[2025-09-17] MEDS: Lactated Ringers 1,000 ML 1000 ML IV (07:35)
[2025-09-17] MEDS: Midazolam 2 MG/2 ML Syringe IV (07:36)
[2025-09-17] MEDS: Cefazolin 1 GM/5 ML Vial 2 GM IV (07:40)
[2025-09-17] MEDS: Lidocaine 1% (5 ml sdv) 5 ML Vial IV (07:41)
[2025-09-17] MEDS: DiphenhydrAMINE 50 MG/ML Syringe 12.5 MG IV (07:44)
[2025-09-17] MEDS: metroNIDAZOLE 500 MG/100 ML BAG 100 MG IV (08:10)
[2025-09-17] MEDS: fentaNYL 100 MCG/2 ML Ampul IV (08:50)
--- NOTE | 2025-09-17 09:05 | OP.PCM_ITS ---
Multi Select Codes Urinary/Genital Urinary/Genital CPT Codes: 32121 Cystoscopy and 53439 TLH+BS/O <250gr uterus Operative Report (Standard) Operative Information Date of Procedure: 09/17/25 Pre-Operative Diagnosis: menorrhagia, dysmenorrhea Post-Operative Diagnosis: menorrhagia, dysmenorrhea Surgery/Procedure Performed: total robotic hysterectomy, bilateral salpingectomy, cystoscopy benefits analyst: Yes Sap Bw Bi Developer: Sallie Cesar Tasks completed by assistant wrestling coach: Closing and Insert Trochanter Additional emergency room physician assistant?: No Type of Anesthesia: General RN Documented Start/Stop Times: Operation Date: 09/17/25 07:30 Case Time Into Pre-Op 09/17/25 05:40 Out of Pre-Op 09/17/25 07:32 Anesthesia Start 09/17/25 07:35 Into Room 09/17/25 07:35 Procedure Start 09/17/25 08:03 Procedure Start Time: 08:03 Procedure Stop Time: 09:09 Select all DRAINS/GRAFTS/IMPLANTS that apply: None Estimated Blood Loss: 30cc Specimen collected: Yes Description of specimen(s) removed: uterus, cervix, fallopian tubes Description of surgery: Reason for surgery: This is a 35-year-old G2, P3 who presented to my office with history of heavy periods and failed conservative therapy. She has a history of migraines with aura and cannot use estrogen. The planned procedure is for a robotic hysterectomy the risks benefits and alternatives were discussed with the patient the patient had a clear understanding of the procedure and a consent form was signed. Procedure: The patient was placed in the dorsal low lithotomy position and prepped and draped in the normal sterile fashion both abdominally and in the perineum. Her legs were placed in stirrups a Finch catheter was inserted into the urethra without difficulty. A weighted speculum was placed in the vagina and a single- tooth tenaculum was used to grasp the anterior lip of the cervix. An advincula uterine manipulator was inserted through the cervix without complication. It was then tied into place at the 2 and 10:00 locations on the cervix. Gloves were changed and attention was turned towards the abdomen. Approximately 23 cm above the pubic symphysis in the midline, and after Marcaine injection, a 8 mm incision was made. An 8 mm trocar was inserted through the laparoscope, then inserted into the abdomen under direct visualization using the laparoscope. Good abdominal placement was noted and no complications were appreciated. An air seal device was utilized to create pneumoperitoneum. At 12 cm lateral to the midline on the left and right sides 8 mm accessory ports were placed. Next a left upper quadrant 8 mm emergency room physician assistant port site was placed. The patient was placed in steep Trendelenburg position. The robot was docked. The hysterectomy was initiated first by taking down the round ligament on each side using the vessel sealer device. The fallopian tubes were grasped and the underlying mesosalpinx was cauterized and cut with the vessel sealer device. The right ovary was noted to have a small approximately 2 cm follicular cyst. The broad ligament was then and taken down using the vessel sealer device. Next the bladder flap was taken down without complication. This was done using monopolar cautery to the level of the cervical vaginal junction. After the bladder flap was created, uterine vessels were then isolated and cauterized using the vessel sealer device and EndoShears. At this point the uterine vessels were taken down further starting from the ascending branch, dissecting along the edges of the cervix to the level of the cervical vaginal junction with hemostasis appreciated. The cervical vaginal junction was then using monopolar cautery in a circumferential pattern across the superior aspect of the cervix. The specimen was delivered through the vagina and sent to pathology. The remaining vaginal cuff was then closed using a V lock suture. This was performed in a running technique. Excellent hemostasis was obtained and good closure was noted. Irrigation was then performed. All operative sites were noted to be hemostatic. A cystoscopy was performed with a 70 degree cystoscope through the urethra into the bladder without complication. The bladder was instilled with approximately 250 cc of normal saline. Intraoperative images were made. Ureteral orifices and jets were identified. No suture material was appreciated in the bladder. The bladder was then drained and cystoscope was removed. The abdominal cavity was again examined using the laparoscope after the robot was undocked. All operative sites were noted to be hemostatic. The trochars were removed under direct visualization without complication and pneumoperitoneu m was reduced. At this point the skin was then closed using 4-0 Monocryl subcuticular stitch and sealed with surgical glue. The patient tolerated the procedure well sponge lap and needle counts were correct x2 the patient was taken to the recovery room in stable condition. Surgical Findings: Findings: 10 cmsize uterus, normal appearing ovaries and tubes. On exploration of the abdominal cavity the uterus, adnexa, bowel, and liver were found to be normal. Cystoscopy showed no evidence of leaking at approximately 250 cc of normal saline, positive ureteral orifices and jet flow are seen and no suture material was appreciated in the bladder. Complications Complications: No Admit VTE Documentation VTE Present on Admission: No VTE Mechan Device Prophylaxis: SCD's VTE Pharm Prophylaxis ordered?: No Reason prophylaxis not ordered: Treatment Not Indicated
--- NOTE | 2025-09-17 09:28 | PCM.POST.ANE ---
Anesthesia: Postop Eval I Current Vital Signs Temperature: 97.5 F Pulse Rate: 66 Blood Pressure: 108/76 Respiratory Rate: 16 Pulse Ox: 94 Oxygen Delivery Method: Room Air Assessment Airway patent: Yes Spontaneous unlabored respirations: Yes Mental status: Asleep nausea: No Vomiting: No Anesthesia Complication: No Fluid Hydration Crystalloid volume administer (ml): 1,000 Total IV fluid infused: 1,000 Progress Note Anesthesia document: Postop Eval 1 completed: Yes
[2025-09-17] MEDS: Lactated Ringers @ 70 MLS/HR 70 ML IV (09:51)
[2025-09-17] MEDS: HYDROcodone Bitartrate/Apap 5/325 Tablet PO (10:44)
[2025-09-17] MEDS: Ketorolac 30 MG/ML Syringe IV (11:16)
--- NOTE | 2025-09-17 11:26 | SUR.PHASEII ---
ABDOMINAL BINDER GIVEN TO PATIENT PER DR. MALIKA LOPEZ.
--- NOTE | 2025-09-17 13:40 | POSTOPAN2_ITS ---
Anesthesia Postop Eval I Sum Postop Eval Completion status Anesthesia document: Postop Eval 1 completed: Yes Anesthesia Postop Eval I Summary Anesthesia Postop Eval I Summary: Anesthesia Postop Eval I: Assessment Summary Airway patent Yes 09/17/25 09:29 CONTRIBUTION [email or web address] Spontaneous unlabored Yes 09/17/25 09:29 CONTRIBUTION [email or web address] respirations Mental status Asleep 09/17/25 09:29 CONTRIBUTION [email or web address] nausea No 09/17/25 09:29 CONTRIBUTION [email or web address] Vomiting No 09/17/25 09:29 CONTRIBUTION [email or web address] Anesthesia Postop Eval I: Fluid Summary Crystalloid volume administer 1,000 09/17/25 09:29 CONTRIBUTION [email or web address] (ml) Colloids volume administered ( ml) Blood Product volume administered (ml) Total IV fluid infused 1,000 09/17/25 09:29 CONTRIBUTION [email or web address] Anesthesia Postop Eval I: Summary Notes Anesthesia Complication No 09/17/25 09:29 CONTRIBUTION [email or web address] Anesthesia Complication Comment: Post-operative progress note Anesthesia: Postop Eval II Evaluation Mental status: Awake Pain Level: 0 nausea: No Vomiting: No Complications Anesthesia Complication: No
--- NOTE | 2025-09-17 13:40 | PCM.POSTANE2 ---
Anesthesia Postop Eval I Sum Postop Eval Completion status Anesthesia document: Postop Eval 1 completed: Yes Anesthesia Postop Eval I Summary Anesthesia Postop Eval I Summary: Anesthesia Postop Eval I: Assessment Summary Airway patent Yes 09/17/25 09:29 RN [email or web address] Spontaneous unlabored Yes 09/17/25 09:29 [email or web address] respirations Mental status Asleep 09/17/25 09:29 RN [email or web address] nausea No 09/17/25 09:29 RN [email or web address] Vomiting No 09/17/25 09:29 [email or web address] Anesthesia Postop Eval I: Fluid Summary Crystalloid volume administer 1,000 09/17/25 09:29 RN [email or web address] (ml) Colloids volume administered ( ml) Blood Product volume administered (ml) Total IV fluid infused 1,000 09/17/25 09:29 RN [email or web address] Anesthesia Postop Eval I: Summary Notes Anesthesia Complication No 09/17/25 09:29 RN [email or web address] Anesthesia Complication Comment: Post-operative progress note Anesthesia: Postop Eval II Evaluation Mental status: Awake Pain Level: 0 nausea: No Vomiting: No Complications Anesthesia Complication: No
== END 2025-09-17 13:19 | disposition home or self-care (01) ==
LOC: SDC 05:32 → AC 05:34
PROVIDERS: Student in an Organized Health Care Education/Training Program; PCP Family Medicine; Referring Provider Obstetrics & Gynecology; Visit Provider Obstetrics & Gynecology
PROC: 0UT90ZZ Resection of Uterus, Open Approach (ICD-10-PCS; CPT 58571; principal; 2025-09-17 07:10)
DX: N92.0 Excessive and frequent menstruation with regular cycle (principal); N93.9 Abnormal uterine and vaginal bleeding, unspecified; N94.6 Dysmenorrhea, unspecified; N83.8 Other noninflammatory disorders of ovary, fallopian tube and broad ligament; D25.9 Leiomyoma of uterus, unspecified; Z79.899 Other long term (current) drug therapy; F41.9 Anxiety disorder, unspecified; F32.A Depression, unspecified
CPT/HCPCS: 58571; S2900; 00840; 36415; 81025; 82728; 82962; 83540; 83550; 83735; 85027; 86850; 86900; 86901; 88307; J2405; J3475